=== PATIENT | female | born 1960 | race Caucasian/White ===

== ENCOUNTER 2017-01-04 15:59 | Observation (INO) ==
--- NOTE | 2017-01-04 16:30 | Emergency Department Note ---
START Narrative - START START: I examined this patient and my medical decision-making was reviewed with the Resident Physician. I agree with the documented findings, disposition and treatment plan as described except to the extent set forth below. Patient to ED with a chief complaint of difficulty speaking and right-sided weakness. Onset was over 24 hours ago. Patient states she stuttering and can get her words out. Also complains of weakness it is right-sided. Exam shows a diffuse weakness though we do not localize. She is having some aphasia. Plan. CT had cardiac workup. Likely admission for stroke workup. Patient would not be a TPA candidate secondary to her symptoms were present for over 24 hours.
[2017-01-04] MEDS ORDERED: Acetaminophen 325 MG TABLET PO ONE (16:49)
[2017-01-04 16:57] LABS: Basophils # 0.1 K/mcL (0.0-0.2); Basophils % 0.4 %; Eosinophils # 0.4 K/mcL (0.0-0.6); Eosinophils % 2.9 %; Hematocrit 38.2 % (35.3-44.9); Immature Granulocytes % 0.8 % (0-4); Lymphocytes # 2.6 K/mcL (0.6-4.6); Lymphocytes % 20.8 %; Mean Corpuscular HGB Conc 31.4 g/dL (31.6-35.5); Mean Corpuscular Hemoglobin 29.3 pg (28.0-33.3); Mean Corpuscular Volume 93.2 fL (83.0-100.0); Mean Platelet Volume 9.9 fL (9.4-12.4); Monocytes % 7.8 %; Neutrophils # 8.3 K/mcL (1.6-8.9); Platelet Count 216 K/mcL (140-400); Red Cell Distribution Width 13.8 % (11.5-14.5); Segmented Neutrophils % 67.3 %
[2017-01-04 17:06] LABS: Activated Partial Thrombo Time 27.8 Seconds (26.0-36.0)
[2017-01-04 17:10] LABS: Calcium 9.4 mg/dL (8.6-10.8)
--- NOTE | 2017-01-04 17:45 | Emergency Department Note ---
Disposition Clinical Impression: [place] (acute kidney injury) TIA (transient ischemic attack) Qualifiers: Transient cerebral ischemia type: unspecified Qualified Code(s): G45.9 - Transient cerebral ischemic attack, unspecified Disposition: Admitted As Inpatient Condition: Fair Referrals: NONE,PCP [Primary Care Provider] - Forms: ED Satisfaction Letter Time of Disposition: 18:33 Neuro HPI - General Chief Complaint: ED Neuro Symptoms/Deficit Stated Complaint: possible TIA Time Seen by Provider: 01/04/17 16:05 Source: patient, EMS Limitations: no limitations Nursing Notes Reviewed: Yes Vital Signs Reviewed: Yes - History of Present Illness HPI Narrative: Patient is a 52-year-old female who presents to [facility] ED with a chief complaint of neurologic complaints of right-sided weakness as well as worsening stuttering speech and generalized weakness. Patient was transferred over from [facility] urgent care with concern for possible TIA. Patient states she has felt recently not well over the last few days. She is about to fall the time. This morning woke up and the worsening right-sided weakness. Patient was recently admitted last week for urinary tract infection. She was given Levaquin for home. States she has not wanted much fluids at home. Denies any prior history of kidney problems. She does have a history of headaches from pseudotumor cerebri and back problems with a yumiko in her back. Onset of Symptoms Date: 01/03/17 Symptom Onset Unknown: Yes Location: speech, right arm, right leg History of same: No Severity: mild Quality: weakness Symptoms Improving: Yes Improves with: none Worsens with: none On Anticoagulants: No Associated symptoms: Reports: weakness. Denies: chest pain, cough, fever/chills , headaches, nausea/vomiting, shortness of breath Treatments Prior to Arrival: none - Related Data Home Medications: Home Medications Medication Instructions Recorded Confirmed Cyclobenzaprine [Flexeril] 10 mg PO TID PRN 12/26/16 01/02/17 Gabapentin [Neurontin] 800 mg PO TID 12/26/16 01/02/17 Lisinopril [Zestril] 40 mg PO DAILY 12/26/16 01/02/17 Metoprolol Succinate 200 mg PO DAILY 12/26/16 01/02/17 Omeprazole [PriLOSEC] 40 mg PO DAILY 12/26/16 01/02/17 Simvastatin [Zocor] 40 mg PO HS 12/26/16 01/02/17 hydroCHLOROthiazide 12.5 mg PO DAILY 12/26/16 01/02/17 [Hydrochlorothiazide] metFORMIN [Glucophage] 500 mg PO BIDWM 12/26/16 01/02/17 Previous Rx's Medication Instructions Recorded levoFLOXacin [Levaquin] 750 mg PO DAILY #6 tab 12/30/16 Óscar/Poly/HC *EAR* SUSP 4 drop RIGHT EAR QID #15 drops.susp 01/02/17 [Cortisporin *EAR* SUSP] Allergies/Adverse Reactions: Allergies Allergy/AdvReac Type Severity Reaction Status Date / Time No Known Allergies Allergy Verified 10/23/16 13:45 All systems ED: reviewed and negative except as stated. Past Medical History - Past Medical History Attestation: Yes The following information was validated with the patient. Source: patient Medical history: Reports: diabetes, fibromyalgia, GERD, hyperlipidemia, hypertension, RA, other Surgical history: Reports: appendectomy, , cholecystectomy, orthopedic , other, other Psychiatric history: Reports: anxiety, depression CROSS CUT SAWYER history: Reports: no CROSS CUT SAWYER history - Social History Smoking Status: Never smoker Smokeless Tobacco Status: No Alcohol use: Reports: occasionally Drug use: Reports: none Physical Exam - General Limitations: no limitations General appearance: alert - Head Head exam: atraumatic, normocephalic, normal inspection - Eye Eye exam: Present: normal appearance, PERRL, EOMI - ENT ENT exam: normal exam, normal oropharynx, mucous membranes moist - Neck Neck exam: Present: normal inspection, full ROM, trachea midline - Chest Chest inspection: Present: normal inspection, symmetric chest wall rise - Respiratory Respiratory exam: Present: normal lung sounds bilaterally - Cardiovascular Cardiovascular exam: Present: regular rate, normal rhythm, normal heart sounds - Abdominal Exam Abdominal exam: Present: soft, Non-Tender. Absent: tenderness, distention, guarding, rebound, rigidity - Extremities Exam Extremities exam: Present: normal inspection, full ROM. Absent: tenderness, pedal edema - Back Exam Back exam: Present: normal inspection - Neurological Exam Neurological exam: Present: alert, CN II-XII intact. Absent: motor sensory deficit - Expanded Neurological Exam Speech: Present: expressive aphasia Cranial nerves: EOM function (II, III, IV, ): Normal, facial sensation (V): Normal, facial palsy (VII): Normal, spinal accessory function (XI): Normal, tongue deviation (XII): Normal Motor strength - LUE: 4/5 Motor strength - RUE: 4/5 Motor strength - LLE: 2/5 Motor strength - RLE: 2/5 Sensory exam upper extremity: light touch: Normal Sensory exam lower extremity: light touch: Normal Coma Scale Eye Opening: Spontaneous Coma Scale Motor Response: Obeys Commands Coma Scale Verbal Response: Oriented Coma Scale Total: 15 - Psychiatric Psychiatric exam: Present: normal affect, normal mood - Skin Skin exam: Present: warm, dry, intact, normal color Course Course Narrative: Patient seen and examined. Neuro symptoms. NIH score of 2 for a little bit of expressive aphasia and subjective right-sided weakness. Stroke workup initiated. Patient recently admitted for UTI. We will also repeat a urinalysis. - Reevaluation(s) Reevaluation #1: Urinalysis shows a lot of white blood cells. Her creatinine shows worsened at 2.2 from previously normal levels. Will admit for acute kidney injury as well as possible TIA. Time: 18:26 Reevaluation #2: I spoke with hospitalist Jaleesa Sanchez who has accepted patient for admission. Time: 18:32 Vital Signs Temperature 99.3 F 01/04/17 16:00 Pulse Rate 90 01/04/17 16:00 Respiratory Rate 15 01/04/17 16:00 Blood Pressure 133/70 01/04/17 16:00 O2 Sat by Pulse Oximetry 92 01/04/17 16:00 Temperature 99.3 F 01/04/17 16:00 Pulse Rate 89 01/04/17 17:19 Respiratory Rate 18 01/04/17 17:19 Blood Pressure 136/84 01/04/17 17:19 O2 Sat by Pulse Oximetry 95 01/04/17 17:19 Oxygen Delivery Oxygen Delivery Room Air Neuro Symptoms/Deficit - Medical Records Medical records reviewed: Yes I reviewed the patient's medical records. - Lab Data Lab results reviewed: Yes I reviewed the patient's lab results. Result diagrams: 01/04/17 16:45 01/04/17 16:45 Lab Results 01/04/17 01/04/17 01/04/17 Range/Units 16:45 16:45 16:45 WBC 12.4 H (4.3-11.1) K/mcL RBC 4.10 (3.82-4.97) M/mcL Hgb 12.0 (11.5-15.4) g/dL Hct 38.2 (35.3-44.9) % MCV 93.2 (83.0-100.0) fL MCH 29.3 (28.0-33.3) pg MCHC 31.4 L (31.6-35.5) g/dL RDW 13.8 (11.5-14.5) % Plt Count 216 (140-400) K/mcL MPV 9.9 (9.4-12.4) fL Immature Gran % 0.8 (0-4) % Seg Neutrophils % 67.3 % Lymphocytes % 20.8 % Monocytes % 7.8 % Eosinophils % 2.9 % Basophils % 0.4 % Neutrophils # 8.3 (1.6-8.9) K/mcL Lymphocytes # 2.6 (0.6-4.6) K/mcL Monocytes # 1.0 (0.0-1.3) K/mcL Eosinophils # 0.4 (0.0-0.6) K/mcL Basophils # 0.1 (0.0-0.2) K/mcL PT 11.0 (9.4-12.1) Seconds INR 1.0 APTT 27.8 (26.0-36.0) Seconds Sodium 138 (136-145) mEq/L Potassium 4.0 (3.5-4.5) mEq/L Chloride 100 (98-109) mEq/L Carbon Dioxide 28 (19-29) mEq/L BUN 16 (7-20) mg/dL Creatinine 2.22 H (0.57-1.11) mg/dL Est GFR ( Amer) 27 L (> 60) Est GFR (Non-Af Amer) 23 L (> 60) BUN/Creatinine Ratio 7 (6-26) Glucose 94 (70-99) mg/dL Calculated Osmolality 287 (280-300) Calcium 9.4 (8.6-10.8) mg/dL Troponin I (0-0.03) ng/mL Urine Color (Yellow) Urine Clarity (Clear) Urine pH (5.0-8.0) pH Units Ur Specific [place] (1.010-1.025) Urine Protein (Neg-Trace) mg/dL Urine Glucose (UA) (Normal) mg/dL Urine Ketones (Negative) mg/dL Urine Blood (Negative) Urine Nitrite (Negative) Urine Bilirubin (Negative) Urine Urobilinogen (Normal) mg/dL Ur Leukocyte Esterase (Negative) Urine Microscopic RBC (0-3) per hpf Urine Microscopic WBC (0-3) per hpf Ur Squamous Epith Cells (None-Few) per lpf Urine Bacteria (None-Few) per hpf Hyaline Casts (None-Few) per lpf Ur Culture Indicated? (NO) 01/04/17 01/04/17 Range/Units 16:45 17:48 WBC (4.3-11.1) K/mcL RBC (3.82-4.97) M/mcL Hgb (11.5-15.4) g/dL Hct (35.3-44.9) % MCV (83.0-100.0) fL MCH (28.0-33.3) pg MCHC (31.6-35.5) g/dL RDW (11.5-14.5) % Plt Count (140-400) K/mcL MPV (9.4-12.4) fL Immature Gran % (0-4) % Seg Neutrophils % % Lymphocytes % % Monocytes % % Eosinophils % % Basophils % % Neutrophils # (1.6-8.9) K/mcL Lymphocytes # (0.6-4.6) K/mcL Monocytes # (0.0-1.3) K/mcL Eosinophils # (0.0-0.6) K/mcL Basophils # (0.0-0.2) K/mcL PT (9.4-12.1) Seconds INR APTT (26.0-36.0) Seconds Sodium (136-145) mEq/L Potassium (3.5-4.5) mEq/L Chloride (98-109) mEq/L Carbon Dioxide (19-29) mEq/L BUN (7-20) mg/dL Creatinine (0.57-1.11) mg/dL Est GFR ( Amer) (> 60) Est GFR (Non-Af Amer) (> 60) BUN/Creatinine Ratio (6-26) Glucose (70-99) mg/dL Calculated Osmolality (280-300) Calcium (8.6-10.8) mg/dL Troponin I 0.00 (0-0.03) ng/mL Urine Color Yellow (Yellow) Urine Clarity Cloudy A (Clear) Urine pH 6.0 (5.0-8.0) pH Units Ur Specific [place] 1.014 (1.010-1.025) Urine Protein 100 H (Neg-Trace) mg/dL Urine Glucose (UA) Normal (Normal) mg/dL Urine Ketones Negative (Negative) mg/dL Urine Blood Trace H (Negative) Urine Nitrite Negative (Negative) Urine Bilirubin Negative (Negative) Urine Urobilinogen Normal (Normal) mg/dL Ur Leukocyte Esterase Moderate H (Negative) Urine Microscopic RBC 5-15 H (0-3) per hpf Urine Microscopic WBC 50-100 H (0-3) per hpf Ur Squamous Epith Cells Many H (None-Few) per lpf Urine Bacteria None Seen (None-Few) per hpf Hyaline Casts None Seen (None-Few) per lpf Ur Culture Indicated? YES A (NO) - Radiology Data Radiology results reviewed: Yes I reviewed the patient's radiology results. Head CT 01/04/17 16:06 IMPRESSION: No acute intracranial abnormality. D/ / Javon Nunez MD / Javon Nunez MD Interpreting Provider: Javon Nunez MD - EKG Data EKG attestation: Yes I reviewed and interpreted this EKG. EKG results narrative: EKG done at 1637 shows normal sinus rhythm with a rate of [address] elevation or depression noted. Poor wandering baseline due to artifact. Normal axis. NIH Stroke Scale - Level of Consciousness LOC: Alert - LOC Questions LOC Questions: Answers both correctly - LOC Commands LOC Commands: Performs both correctly - Best Gaze Best Gaze: Normal - Visual Visual: No visual loss - Facial Palsy Facial Palsy: Normal - Motor Arms Motor Arm-Left: No drift for 10 seconds Motor Arm-Right: No drift for 10 seconds - Motor Legs Motor Leg-Left: No drift for 5 seconds Motor Leg-Right: Some effort against gravity, limb drifts to bed TPA Checklist - LKW: 3-4.5 hrs Add. Warnings/Precautions Patient/family understanding: The patient/family members have been counseled and understood the risk, benefit , and alternatives of treatment.
[2017-01-04 17:57] LABS: Bilirubin,Urine Negative (Negative); Blood,Urine Trace (Negative); Clarity,Urine Cloudy (Clear); Color,Urine Yellow (Yellow); Glucose,Urine (UA) Normal (Normal); Ketones,Urine Negative (Negative); Leukocyte Esterase,Urine Moderate (Negative); Nitrite,Urine Negative (Negative); Protein,Urine 100 mg/dL (Neg-Trace); Specific Gravity,Urine 1.014 (1.010-1.025); Urobilinogen,Urine Normal (Normal)
[2017-01-04 17:59] LABS: Bacteria,Urine None Seen per hpf (None-Few); Hyaline Casts,Urine None Seen per lpf (None-Few); Squamous Epithelial Cell,Urine Many per lpf (None-Few); WBC,Urine 50-100 per hpf (0-3)
[2017-01-04] MEDS ORDERED: 0.9 % Sodium Chloride 1,000 ML IVC ONE (18:12)
[2017-01-04] MEDS ORDERED: *HR* OxyCODONE/APAP 5/325 TABLET PO ONE (18:25)
[2017-01-04] MEDS: *HR* OxyCODONE/APAP 5/325 TABLET PO PRN (21:12)
[2017-01-04] MEDS ORDERED: Acetaminophen 325 MG TABLET PO PRN (21:24)
[2017-01-04] MEDS ORDERED: Naloxone 0.4 MG/ML INJ IVP PRN (21:24)
[2017-01-04] MEDS ORDERED: Dextrose Gel 15 GM PO PRN ×2 (21:31)
[2017-01-04] MEDS ORDERED: D5% in Water 1,000 ML IVC PRN (21:31)
[2017-01-04] MEDS ORDERED: *HR* Dextrose 50 % in Water (Syg) 50 ML SYRINGE IVP PRN (21:31)
[2017-01-04] MEDS ORDERED: *HR* LORazepam 2 MG/ML VIAL IVP PRN (21:51)
--- NOTE | 2017-01-04 21:58 | Internal Med History&Physical ---
<Jaleesa Sanchez M - Last Filed: 01/04/17 22:17> Date of Encounter: 01/04/17 Time of Encounter: 21:54 Assessment and Plan (1) LINCOLN (acute kidney injury) Current visit: Yes Status: Acute Patient with LINCOLN, creatinine of 2.22, up from previous of 0.75 last week. She also has UTI. Will hold HCTZ, lisinopril. Treat UTI with IV Rocephin. Hydrate with 0.9NS at 125mL/hr. Avoid NSAIDS and nephrotoxins. Retroperitoneal ultrasound. Check chemistry daily. (2) TIA (transient ischemic attack) Current visit: Yes Status: Suspected Patient presented with worsening stutter and right leg weakness with frequent falls. Patient complaining of right knee and leg pain. Denies numbness and tingling. On exam, patient with equal strength bilaterally. CT of Head showed no acute intracranial abnormality. RLE weakness and falls likely related to pain rather than TIA, and low suspicion for TIA/CVA, but will rule out. continuous equipment monitor phototypesetting MRI head/brain PT/OT consults Qualifiers: Transient cerebral ischemia type: unspecified Qualified Code(s): G45.9 - Transient cerebral ischemic attack, unspecified (3) Stutter Current visit: Yes Status: Acute Patient and family report she has increased frequency of stuttering, and are concerned with right leg weakness and falls about neurological cause. Patient does have significant stutter intermittent with fluid speech. She reports she has occasional stutter at baseline. CT head showed no acute intracranial abnormalities. Will get MRI of head and brain. (4) UTI (urinary tract infection) Current visit: Yes Status: Acute UA consistent with UTI. Patient was recently admitted with UTI and discharged on Levaquin. Culture shows sensitivity to Levaquin. However, patient has elevated WBC, LINCOLN and UA still looks infected. Will treat with Rocephin IVPB daily and await culture results. Qualifiers: Urinary tract infection type: site unspecified Hematuria presence: without hematuria Qualified Code(s): N39.0 - Urinary tract infection, site not specified (5) DVT prophylaxis Current visit: Yes Status: Acute anti-embolic stockings heparin TID Internal Medicine - H&P: HPI Chief complaint: fall, stutter, weakness Admitted From: Emergency Dept Plans for Post Hospital Care: Home History of present illness: Ms. Mendoza is a 56 year old female with hypertension, hyperlipidemia, type 2 diabetes, fibromyalgia, rheumatoid arthritis, pseudotumor cerebri presented to the emergency department today with complaints of increased stuttering, and weakness and falls. Patient reports that she stutters from time to time but her stuttering has been much worse in the last couple of days. She also reports falling 3 times today hitting herself on furniture, and she thinks is because her right leg is weak. She is complaining of pain in her right knee shooting up her leg to her back. She denies any numbness or tingling in the right leg. She reports occasional dizziness. She denies any chest pain, palpitations, shortness of breath, nausea, vomiting, abdominal pain. She reports a good appetite. She has reported fever couple of days ago, but no fever, chills or sweats today. Evaluation in the emergency department included a head CT which showed no acute intracranial abnormality. EKG showed normal sinus rhythm with heart rate of 86. Troponin was negative at 0.00. White blood cell count was mildly elevated at 12.4. She had AK I with creatinine of 2.2 to, up from previous of 0.75 last week. Patient was recently admitted and treated for UTI and kidney stones. UA today also shows concern for UTI. Patient reports she has been taking her Levaquin as prescribed. On exam, patient is alert and oriented, in no acute distress. Heart is regular rate and rhythm, lungs are clear bilaterally to auscultation. Patient has equal strength bilaterally, cranial nerves are intact, no pronator drift. She does have a significant stutter that comes and goes with her speech. Past Med Surg Social Fam HX - Past Medical History Medical history: diabetes, fibromyalgia, GERD, hyperlipidemia, hypertension, RA , other Psychiatric history: anxiety, depression - Past Surgical History Surgical History: appendectomy, , cholecystectomy, orthopedic, other, other - Social History Smoking Status: Never smoker Smokeless Tobacco Status: No Alcohol use: occasionally Drug use: none - Family History Mother History Unknown: Yes Internal Medicine - H&P: Meds Cyclobenzaprine [Flexeril] 10 mg PO TID PRN 12/26/16 [History] Gabapentin [Neurontin] 800 mg PO TID 12/26/16 [History] Lisinopril [Zestril] 40 mg PO DAILY 12/26/16 [History] Metoprolol Succinate 200 mg PO DAILY 12/26/16 [History] Omeprazole [PriLOSEC] 40 mg PO DAILY 12/26/16 [History] Simvastatin [Zocor] 40 mg PO HS 12/26/16 [History] hydroCHLOROthiazide [Hydrochlorothiazide] 12.5 mg PO DAILY 12/26/16 [History] metFORMIN [Glucophage] 500 mg PO BIDWM 12/26/16 [History] levoFLOXacin [Levaquin] 750 mg PO DAILY #6 tab 12/30/16 [Rx] Óscar/Poly/HC *EAR* SUSP [Cortisporin *EAR* SUSP] 4 drop RIGHT EAR QID #15 drops.susp 01/02/17 [Rx] 3 Allergy/AdvReac Type Severity Reaction Status Date / Time No Known Allergies Allergy Verified 10/23/16 13:45 All Systems PM: A 10-system review of systems was performed and is negative for pertinent findings except as documented above in the HPI. - Constitutional Constitutional: no chills, no fever(s), no night sweats - EENT Eyes: no change in vision, no discharge, no pain, no photophobia Ears: no ear discharge, no ear pain, no tinnitus Nose, mouth and throat: no dysphagia, no nasal discharge, no neck pain, no sore throat - Cardiovascular Cardiovascular ROS IM: no chest pain, no diaphoresis, no dyspnea, no lightheadedness, no palpitations, no syncope - Respiratory Respiratory: no cough, no dyspnea, no wheezing, no excessive phlegm production - Gastrointestinal Gastrointestinal: no abdominal pain, no diarrhea, no hematemesis, no hematochezia, no melena, no nausea, no vomiting - Genitourinary Genitourinary: no change in urinary stream, no dysuria, no flank pain, no hematuria - Musculoskeletal Musculoskeletal ROS IM: no numbness, no tingling - Integumentary Integumentary IM: no rash, no unusual bruising - Neurological Neurological ROS: abnormal speech (stutter), dizziness, focal weakness (right leg), frequent falls, no confusion, no convulsions, no numbness, no tingling, no tremor(s) - Hematologic/Lymphatic Hematologic/Lymphatic: no easy bruising - Constitutional Vitals: Temp Pulse Resp BP Pulse Ox 98.1 F 81 12 105/68 90 08/25/17 19:58 01/04/17 19:58 01/04/17 19:58 01/04/17 19:58 01/04/17 19:58 General appearance: Present: A&O X 3, morbidly obese, pleasant, no acute distress - Head Head exam: Present: atraumatic, normocephalic - Eye Eye exam: Present: PERRL, conjuntiva pink, sclera anicteric Pupils: Present: PERRL - Neck Neck exam general surgery: Present: supple, trachea midline. Absent: lymphadenopathy - Respiratory Respiratory exam: Present: CTAB. Absent: accessory muscle use, rales, rhonchi, wheezes - Cardiovascular Cardiovascular exam: Present: RRR, +S1, +S2. Absent: diastolic murmur, gallop, rubs, systolic murmur - GI/Abdominal GI/Abdominal exam: Present: normal bowel sounds, soft, no peritoneal signs. Absent: distended, tenderness - Extremities Exam Extremities exam: Present: warm, radial pulses palpable and symmetrical. Absent : calf tenderness, cyanotic, pedal edema - Neurological Exam Neurological exam: Present: CN II-XII intact, oriented X3, no focal deficits, strengths equal and symetr throughout. Absent: pronater drift, facial droop - Expanded Neurological Exam Speech: Present: stutter Cranial Nerves: EOM's intact PM: Normal, gag reflex PM: Normal, nystagmus PM: Normal, tongue deviation PM: Normal Neuro motor strength exam: LUE: 5, RUE: 5, LLE: 5, RLE: 5 - Skin Skin exam: Present: dry, intact Internal Med - H&P Results - Labs CBC & Chem 7: 01/04/17 16:45 01/04/17 16:45 Labs: All Lab Results (24 Hours) 01/04/17 01/04/17 01/04/17 Range/Units 16:45 16:45 16:45 WBC 12.4 H (4.3-11.1) K/mcL RBC 4.10 (3.82-4.97) M/mcL Hgb 12.0 (11.5-15.4) g/dL Hct 38.2 (35.3-44.9) % MCV 93.2 (83.0-100.0) fL MCH 29.3 (28.0-33.3) pg MCHC 31.4 L (31.6-35.5) g/dL RDW 13.8 (11.5-14.5) % Plt Count 216 (140-400) K/mcL MPV 9.9 (9.4-12.4) fL Immature Gran % 0.8 (0-4) % Seg Neutrophils % 67.3 % Lymphocytes % 20.8 % Monocytes % 7.8 % Eosinophils % 2.9 % Basophils % 0.4 % Neutrophils # 8.3 (1.6-8.9) K/mcL Lymphocytes # 2.6 (0.6-4.6) K/mcL Monocytes # 1.0 (0.0-1.3) K/mcL Eosinophils # 0.4 (0.0-0.6) K/mcL Basophils # 0.1 (0.0-0.2) K/mcL PT 11.0 (9.4-12.1) Seconds INR 1.0 APTT 27.8 (26.0-36.0) Seconds Sodium 138 (136-145) mEq/L Potassium 4.0 (3.5-4.5) mEq/L Chloride 100 (98-109) mEq/L Carbon Dioxide 28 (19-29) mEq/L BUN 16 (7-20) mg/dL Creatinine 2.22 H (0.57-1.11) mg/dL Est GFR ( Amer) 27 L (> 60) Est GFR (Non-Af Amer) 23 L (> 60) BUN/Creatinine Ratio 7 (6-26) Glucose 94 (70-99) mg/dL Calculated Osmolality 287 (280-300) Calcium 9.4 (8.6-10.8) mg/dL Troponin I (0-0.03) ng/mL Urine Color (Yellow) Urine Clarity (Clear) Urine pH (5.0-8.0) pH Units Ur Specific [place] (1.010-1.025) Urine Protein (Neg-Trace) mg/dL Urine Glucose (UA) (Normal) mg/dL Urine Ketones (Negative) mg/dL Urine Blood (Negative) Urine Nitrite (Negative) Urine Bilirubin (Negative) Urine Urobilinogen (Normal) mg/dL Ur Leukocyte Esterase (Negative) Urine Microscopic RBC (0-3) per hpf Urine Microscopic WBC (0-3) per hpf Ur Squamous Epith Cells (None-Few) per lpf Urine Bacteria (None-Few) per hpf Hyaline Casts (None-Few) per lpf Ur Culture Indicated? (NO) 01/04/17 01/04/17 Range/Units 16:45 17:48 WBC (4.3-11.1) K/mcL RBC (3.82-4.97) M/mcL Hgb (11.5-15.4) g/dL Hct (35.3-44.9) % MCV (83.0-100.0) fL MCH (28.0-33.3) pg MCHC (31.6-35.5) g/dL RDW (11.5-14.5) % Plt Count (140-400) K/mcL MPV (9.4-12.4) fL Immature Gran % (0-4) % Seg Neutrophils % % Lymphocytes % % Monocytes % % Eosinophils % % Basophils % % Neutrophils # (1.6-8.9) K/mcL Lymphocytes # (0.6-4.6) K/mcL Monocytes # (0.0-1.3) K/mcL Eosinophils # (0.0-0.6) K/mcL Basophils # (0.0-0.2) K/mcL PT (9.4-12.1) Seconds INR APTT (26.0-36.0) Seconds Sodium (136-145) mEq/L Potassium (3.5-4.5) mEq/L Chloride (98-109) mEq/L Carbon Dioxide (19-29) mEq/L BUN (7-20) mg/dL Creatinine (0.57-1.11) mg/dL Est GFR ( Amer) (> 60) Est GFR (Non-Af Amer) (> 60) BUN/Creatinine Ratio (6-26) Glucose (70-99) mg/dL Calculated Osmolality (280-300) Calcium (8.6-10.8) mg/dL Troponin I 0.00 (0-0.03) ng/mL Urine Color Yellow (Yellow) Urine Clarity Cloudy A (Clear) Urine pH 6.0 (5.0-8.0) pH Units Ur Specific [place] 1.014 (1.010-1.025) Urine Protein 100 H (Neg-Trace) mg/dL Urine Glucose (UA) Normal (Normal) mg/dL Urine Ketones Negative (Negative) mg/dL Urine Blood Trace H (Negative) Urine Nitrite Negative (Negative) Urine Bilirubin Negative (Negative) Urine Urobilinogen Normal (Normal) mg/dL Ur Leukocyte Esterase Moderate H (Negative) Urine Microscopic RBC 5-15 H (0-3) per hpf Urine Microscopic WBC 50-100 H (0-3) per hpf Ur Squamous Epith Cells Many H (None-Few) per lpf Urine Bacteria None Seen (None-Few) per hpf Hyaline Casts None Seen (None-Few) per lpf Ur Culture Indicated? YES A (NO) - Diagnostic Studies CT scan - head Additional comments: Head CT 01/04/17 16:06 IMPRESSION: No acute intracranial abnormality. D/ / Javon Nunez MD / Javon Nunez MD Interpreting Provider: Javon Nunez MD <Riaz Hampton - Last Filed: 01/04/17 22:58> Date of Encounter: 01/04/17 Internal Medicine - H&P: HPI History of present illness: Ms. Mendoza is a 56 year old female All Systems PM: A 10-system review of systems was performed and is negative for pertinent findings except as documented above in the HPI. - Constitutional Vitals: Temp Pulse Resp BP Pulse Ox 98.1 F 81 12 105/68 90 01/04/17 19:58 01/04/17 19:58 01/04/17 19:58 01/04/17 19:58 01/04/17 19:58 Internal Med - H&P Results - Labs CBC & Chem 7: 01/04/17 16:45 01/04/17 16:45 - Attending Attestation I have personally performed a face to face evaluation on this patient. I have reviewed and agree with the care plan. History and Exam by me shows: History 78-year-old female who was recently admitted and treated for strep agalactiae pansensitive UTI who presents with one-day history of right lower extremity weakness. Found to have a acute kidney injury creatinine 2.2, significant pyuria. She mentions of right lower extremity weakness gives a vague history of possible pain but denies it at other times which led to the fall. Denies any sensory paresthesia ROS 14 point review of systems reviewed as best as possible given presentation. Pertinent positive or negative as per HPI or otherwise reviewed as negative General - AAO x 3 Psych - Appropriate affect/speech. No agitation Eyes - ANTWAN. Eye lids intact. No scleral icterus ENT - Oral mucosa pink, dentition intact. External ear clear/dry/intact. No thyromegaly Neuro - speech reports minimal slurred, right lower extremity 4+ out of 5, Otherwise, no gross peripheral or central neuro deficits with intact CN 2-12 exam Heart - Sinus. RRR. S1 and S2 present. No added HS/murmurs appreciated. No elevated JVD appreciated. No calf swellings/erythema Lung - Adequate air entry b/l, No crackes/wheezes appreciated GI - Soft, non-tender. No hepatosplenomegaly/ascites. BS+ - No CVA/suprapubic tenderness or palpable bladder distension Skin - Intact. No rash/petechiae/ecchymosis. Warm extremities Assessment and plan TIA/CVA rule out - check MRI Acute kidney injury - IV fluids Pyuria - IV antibiotics
[2017-01-04] MEDS: Insulin LISPRO 300 UNITS/3 ML VIAL SQ SCH (22:30)
[2017-01-04] MEDS: 0.9 % Sodium Chloride 1,000 ML IVC SCH (22:41)
[2017-01-04] MEDS: Gabapentin 400 MG CAPSULE PO SCH (22:41)
[2017-01-04] MEDS: Cortisporin *EAR*Susp 10 ML BOTTLE RIGHT EAR SCH (23:26)
[2017-01-05 00:51] LABS: Hemoglobin A1C 5.6 %
[2017-01-05] MEDS ORDERED: *HR* OxyCODONE Immed Rel 5 MG TABLET PO ONE (01:59)
[2017-01-05] MEDS: *HR* OxyCODONE/APAP 5/325 TABLET PO PRN ×2 (04:08→10:01)
[2017-01-05] MEDS: *HR* Heparin 5,000 UNIT/ML VIAL SQ SCH ×3 (06:05→21:25)
[2017-01-05 07:11] LABS: Basophils % 0.4 %; Eosinophils # 0.4 K/mcL (0.0-0.6); Eosinophils % 3.7 %; Hematocrit 35.6 % (35.3-44.9); Hemoglobin 11.3 g/dL (11.5-15.4); Immature Granulocytes % 0.8 % (0-4); Lymphocytes # 2.7 K/mcL (0.6-4.6); Lymphocytes % 27.4 %; Mean Corpuscular HGB Conc 31.7 g/dL (31.6-35.5); Mean Corpuscular Hemoglobin 29.5 pg (28.0-33.3); Mean Platelet Volume 10.2 fL (9.4-12.4); Monocytes # 0.7 K/mcL (0.0-1.3); Monocytes % 7.6 %; Neutrophils # 5.9 K/mcL (1.6-8.9); Platelet Count 211 K/mcL (140-400); Red Blood Count 3.83 M/mcL (3.82-4.97); Red Cell Distribution Width 13.7 % (11.5-14.5); Segmented Neutrophils % 60.1 %
[2017-01-05 07:12] LABS: Calcium 9.1 mg/dL (8.6-10.8)
[2017-01-05 07:15] LABS: Potassium 4.1 mEq/L (3.5-4.5)
[2017-01-05] MEDS: Insulin LISPRO 300 UNITS/3 ML VIAL SQ SCH ×4 (07:58→21:31)
[2017-01-05] MEDS: Metoprolol XL (24 HR) Succ 50 MG TAB.ER.24H PO SCH (08:10)
[2017-01-05] MEDS: Gabapentin 400 MG CAPSULE PO SCH ×3 (08:14→21:25)
[2017-01-05] MEDS: Cortisporin *EAR*Susp 10 ML BOTTLE RIGHT EAR SCH ×4 (08:15→21:30)
[2017-01-05] MEDS: 0.9 % Sodium Chloride 1,000 ML IVC SCH ×3 (08:15→21:31)
[2017-01-05] MEDS ORDERED: *HR* OxyCODONE Immed Rel 5 MG TABLET PO PRN (11:13)
[2017-01-05] MEDS: *HR* HYDROcodone/Acet 5/325 mg TABLET PO PRN ×2 (13:17→21:25)
--- NOTE | 2017-01-05 13:21 | Internal Med Progress Note ---
Date of Encounter: 01/05/17 Time of Encounter: 12:15 - Assessment and plan (1) TIA (transient ischemic attack) Current Visit: Yes Status: Suspected Assessment and plan: Patient's stuttering has resolved. Awaiting OT and PT consultations for her weakness. Leukocytosis resolved. Head CT negative. Acute kidney injury improving. Treating for urinary tract infection. MRI negative for acute processes. Retroperitoneal ultrasound also unremarkable. During my examination of her, she was asleep and when I woke her up, she will immediately requested more pain medication and stated pain to her legs, arm, head. No focal neurological weakness is present on examination. Awaiting OT and PT recommendations for disposition. ITS Impressions Head CT 01/04/17 16:06 IMPRESSION: No acute intracranial abnormality. D/ / Javon Nunez MD / Javon Nunez MD Interpreting Provider: Javon Nunez MD Brain MRI 01/05/17 08:08 IMPRESSION: No acute intracranial abnormality. Minimal chronic microvascular disease. D/ / Armando Orlando MD / Armando Orlando MD Interpreting Provider: Armando Orlando MD Retroperitoneum Ultrasound 01/05/17 11:00 IMPRESSION: Unremarkable ultrasound of the kidneys and urinary bladder. D/ / Sebas José MD / Sebas José MD Interpreting Provider: Sebas José MD Qualifiers: Transient cerebral ischemia type: unspecified Qualified Code(s): G45.9 - Transient cerebral ischemic attack, unspecified (2) Stutter Current Visit: Yes Status: Resolved Assessment and plan: CVA ruled out. I spoke to the patient at length, speech was clear and intelligible (3) UTI (urinary tract infection) Current Visit: Yes Status: Acute Assessment and plan: Urinalysis abnormal. Urine culture grossly mixed. She had a UTI on 12/26/16 of group beta strep and she was appropriately treated with levofloxacin. Currently on ceftriaxone. We will continue at this time. (4) Acute kidney injury (nontraumatic) Current Visit: No Status: Acute Assessment and plan: Improving, will continue gentle IV fluids and trend. (5) Chronic pain Current Visit: Yes Status: Chronic Assessment and plan: Patient stating she has issues with chronic pain and is set to see a pain management provider in [place] in approximately one month. After speaking with the patient, she states that she regularly has prescriptions for Percocet 7.5 for Percocet tens. In review of her orders report however, patient has multiple prescribers and has not had regular, long-term prescribing of any controlled substances other than gabapentin. Patient recently received a 2 day supply of hydrocodone-acetaminophen 5-325 5 days ago. Strong suspicion for drug seeking behavior. Also on examination, patient lists multiple areas of pain and those areas change depending upon whom she is talking to. (6) Drug-seeking behavior Current Visit: Yes Status: Suspected Assessment and plan: Abnormal or his report and patient does not have the prescriptions that she indicated. She has not been prescribed Percocet 7.5 since March 2016. She has not been prescribed Percocet 10 mg for at least one calendar year. Tylenol for mild pain, Echo 5 mg from moderate pain, IV Toradol for severe pain. (7) Type 2 diabetes mellitus Current Visit: No Status: Chronic Assessment and plan: Controlled with an A1c of 5.6%. Continue sliding scale while admitted (8) DVT prophylaxis Current Visit: Yes Status: Acute Assessment and plan: Subcutaneous heparin (9) Morbid obesity with BMI of 40.0-44.9, adult Current Visit: No Status: Chronic - Subjective Interval history: Patient seen and examined. On examination, patient asleep supine in bed. Patient awakened to voice and touch. Once awake, patient complained of bilateral leg pain, low back pain, right arm pain, and a headache. She states she is eating well. She is requesting increased pain medication. She denies shortness of breath above her norm. - Constitutional Vitals: Temp Pulse Resp BP Pulse Ox 98.3 F 86 16 128/83 93 01/05/17 11:43 01/05/17 11:43 01/05/17 11:43 01/05/17 11:43 01/05/17 11:43 General appearance: Present: A&O X 3, morbidly obese, pleasant, no acute distress, answers questions appropriately - Head Head exam: Present: atraumatic, normocephalic - Eye Eye exam: Present: PERRL, conjuntiva pink, sclera anicteric Pupils: Present: PERRL - Neck Neck exam general surgery: Present: supple, trachea midline. Absent: lymphadenopathy - Respiratory Respiratory exam: Present: CTAB. Absent: accessory muscle use, rales, respiratory distress, rhonchi, wheezes - Cardiovascular Cardiovascular exam: Present: RRR, +S1, +S2. Absent: diastolic murmur, gallop, rubs, systolic murmur - GI/Abdominal GI/Abdominal exam: Present: normal bowel sounds, soft, no peritoneal signs. Absent: distended, tenderness - Extremities Exam Extremities exam: Present: pedal edema (trace, nonpitting), warm, radial pulses palpable and symmetrical. Absent: calf tenderness, cyanotic - Neurological Exam Neurological exam: Present: alert, CN II-XII intact, oriented X3, no focal deficits, strengths equal and symetr throughout. Absent: pronater drift, facial droop, speech deficit - Skin Skin exam: Present: dry, intact, normal color, warm Internal Medicine: Result - Labs CBC & Chem 7: 01/05/17 06:14 01/05/17 06:14 Labs: Short CBC 01/05/17 Range/Units 06:14 WBC 9.8 (4.3-11.1) K/mcL Hgb 11.3 L (11.5-15.4) g/dL Hct 35.6 (35.3-44.9) % Plt Count 211 (140-400) K/mcL Neutrophils # 5.9 (1.6-8.9) K/mcL BMP 01/05/17 06:14 Sodium 141 Potassium 4.1 Chloride 106 Carbon Dioxide 25 BUN 14 Creatinine 1.60 H Glucose 136 H Calcium 9.1 - ABG Interpretation ABG results: PT/INR, D-dimer PT 11.0 Seconds (9.4-12.1) 01/04/17 16:45 - Impressions Impressions Brain MRI 01/05/17 08:08 IMPRESSION: No acute intracranial abnormality. Minimal chronic microvascular disease. D/ / Armando Orlando MD / Armando Orlando MD Interpreting Provider: Armando Orlando MD Retroperitoneum Ultrasound 01/05/17 11:00 IMPRESSION: Unremarkable ultrasound of the kidneys and urinary bladder. D/ / Sebas José MD / Sebas José MD Interpreting Provider: Sebas José MD Consult Discharge Plan - Plan Referrals: Lorenzo Snell, PARBOILER [Primary Care Provider] -
[2017-01-05] MEDS: Ketorolac 15 MG/ML VIAL IVP PRN (16:35)
[2017-01-06] MEDS: Ketorolac 15 MG/ML VIAL IVP PRN ×2 (00:57→06:45)
[2017-01-06] MEDS: *HR* HYDROcodone/Acet 5/325 mg TABLET PO PRN ×2 (03:51→09:34)
[2017-01-06 05:14] LABS: Calcium 9.7 mg/dL (8.6-10.8); Potassium 3.7 mEq/L (3.5-4.5)
[2017-01-06] MEDS: 0.9 % Sodium Chloride 1,000 ML IVC SCH (06:34)
[2017-01-06] MEDS: *HR* Heparin 5,000 UNIT/ML VIAL SQ SCH (06:34)
[2017-01-06 07:23] VITALS: BP 133/73
[2017-01-06] MEDS: Insulin LISPRO 300 UNITS/3 ML VIAL SQ SCH (07:37)
[2017-01-06] MEDS: Gabapentin 400 MG CAPSULE PO SCH (09:34)
[2017-01-06] MEDS: Metoprolol XL (24 HR) Succ 50 MG TAB.ER.24H PO SCH (09:34)
[2017-01-06] MEDS: Cortisporin *EAR*Susp 10 ML BOTTLE RIGHT EAR SCH (09:35)
--- NOTE | 2017-01-06 10:08 | Discharge Summary ---
Date of Encounter: 01/06/17 Time of Encounter: 08:45 - Discharge Diagnosis (1) TIA (transient ischemic attack) Priority: Primary Status: Suspected Comments: Patient's stuttering has resolved. OT and PT surmised she has no needs. Leukocytosis resolved. Head CT negative. Acute kidney injury essentially resolved. Treating for urinary tract infection-UCx mixed. MRI negative for acute processes. Retroperitoneal ultrasound also unremarkable. No focal neurological weakness is present on examination. Qualifiers: Transient cerebral ischemia type: unspecified Qualified Code(s): G45.9 - Transient cerebral ischemic attack, unspecified (2) Stutter Priority: Primary Status: Resolved (3) UTI (urinary tract infection) Priority: Primary Status: Acute Comments: Urinalysis abnormal. Urine culture grossly mixed. She had a UTI on 12/26/16 of group beta strep and she was appropriately treated with levofloxacin. On ceftriaxone while admitted; will send home on short course of levoflox as the patient is still endorsing dysuria (4) Acute kidney injury (nontraumatic) Priority: Primary Status: Acute Comments: improved daily while admitted. Recommend close outpatient followup (5) Chronic pain Priority: Secondary Status: Chronic Comments: Patient stating she has issues with chronic pain and is set to see a pain management provider in [place] in approximately one month. After speaking with the patient, she states that she regularly has prescriptions for Percocet 7.5 for Percocet tens. In review of her orders report however, patient has multiple prescribers and has not had regular, long-term prescribing of any controlled substances other than gabapentin. Patient recently received a 2 day supply of hydrocodone-acetaminophen 5-325 5 days ago. Strong suspicion for drug seeking behavior. Also on examination, patient lists multiple areas of pain and those areas change depending upon whom she is talking to. She has also been seen by 2 providers at [facility] within the last month or so and neither of them prescribed pain medication. She is being worked up by Dr. Jones for possible nerve stimulator/injections (6) Drug-seeking behavior Priority: Primary Status: Suspected (7) Type 2 diabetes mellitus Priority: Secondary Status: Chronic Comments: Controlled with an A1c of 5.6%. Follow-up outpatient (8) DVT prophylaxis Priority: Primary Status: Acute Comments: Subcutaneous heparin while admitted (9) Morbid obesity with BMI of 40.0-44.9, adult Priority: Secondary Status: Chronic - Discharge Medications Home Medications: Cyclobenzaprine [Flexeril] 10 mg PO TID PRN 12/26/16 [History] Gabapentin [Neurontin] 800 mg PO TID 12/26/16 [History] Metoprolol Succinate 200 mg PO DAILY 12/26/16 [History] Omeprazole [PriLOSEC] 40 mg PO DAILY 12/26/16 [History] Simvastatin [Zocor] 40 mg PO HS 12/26/16 [History] metFORMIN [Glucophage] 500 mg PO BIDWM 12/26/16 [History] levoFLOXacin [Levaquin] 750 mg PO DAILY #6 tab 12/30/16 [Rx] Óscar/Poly/HC *EAR* SUSP [Cortisporin *EAR* Susp] 4 drop RIGHT EAR QID #15 drops.susp 01/02/17 [Rx] Allergies/Adverse Reactions: 3 Allergy/AdvReac Type Severity Reaction Status Date / Time No Known Allergies Allergy Verified 10/23/16 13:45 Procedures/tests Complete & Pending: Procedures Performed prior 72 hours Category Date Time Status US retroperitoneal comp [US] Routine Exams 01/05/17 11:00 Completed MR head/brain wo con [MR] Routine MRI 01/05/17 08:08 Completed Date of admission: 01/04/17 18:47 Primary care physician: Lorenzo Snell CNP Consults: 01/04/17 22:15 Consult to Occupational Therapy [CONS] Routine Comment: Evaluate, develop and implement POC Reason for Consult: frequent falls. Right leg pain and weakness Consult to Physical Therapy [CONS] Routine Comment: Evaluate, develop and implement POC Reason for Consult: frequent falls. Right leg pain and weakness Discharging clinician: Tierra Ortiz Anticipated date of discharge: 01/06/17 - Patient Status Disposition: Home, Self-Care Condition: Fair Functional capacity at discharge: independent ambulation Overall status at discharge: patient is back to baseline - Discharge Instructions Follow Up With: Lorenzo Snell CNP [Primary Care Provider] - Anil Jones DO [Partnered Physician] - Additional Instructions: Follow-up with primary care provider within one to 2 weeks. Have blood work drawn within one week. Hold lisinopril and check blood pressure daily and follow up closely with your PCP. Follow-up with pain management as needed - Diet and Activity Activity: increase activity as tolerated Diet: diabetic diet, low fat, low cholesterol, low salt diet Hospital course: Ms. Mendoza is a 56 year old female with past medical history of hypertension, hyperlipidemia, diabetes, fibromyalgia, RA, pseudotumor cerebri, morbid obesity. Patient presented to the emergency department chief complaint of increased stuttering, weakness, and falls. Patient stating that she stutters from time to time but states that her stuttering has gotten worse over the past couple days prior to presentation. She also reported falling 3 times on the day of presentation and hit herself on the furniture and she thinks it is because her right leg is weak. Patient also complaining of pain in her right knee that shoots up her leg to her back. She denied any numbness or tingling in that leg. She also endorsed occasional dizziness. She denied chest pain, palpitations, shortness of breath, nausea or vomiting or abdominal pain. She endorsed a normal appetite. No recent fevers. Workup in the emergency department unremarkable other than acute kidney injury. Head CT negative. Patient was admitted to the hospitalist service for further evaluation and management. Her urinalysis was abnormal and she was diagnosed with a urinary tract infection and started on levofloxacin. This was continued during this admission. Urine culture ended up being grossly mixed and likely consistent with a contamination. She was instructed to continue the rest of the levofloxacin doses upon discharge. Mild leukocytosis resolved-suspect stress related. Vital signs remained stable. Regarding her stuttering, her speech was fluid and intelligible throughout this admission. She had no focal neurological weaknesses on examination. She was seen and evaluated by occupational and physical therapy both of whom surmised she had no needs. Her acute kidney injury improved daily over the course of her too night admission. MRI negative for acute processes and CVA ruled out. Retroperitoneal ultrasound unremarkable. During this admission, patient repeatedly asked for more and more pain medication. Patient informed me that she had been on Percocet tens and Percocet 7.5 however when I reviewed her [facility] report, patient has multiple prescribers and has not had regular, long-term prescribing of any controlled substances other than gabapentin. Patient recently received a 2 day supply of hydrocodone-acetaminophen 5-325 5 days prior to presentation. Strong suspicion for drug seeking behavior. Also on examination, patient listed multiple areas of pain and those areas changed depending upon whom she was talking to. She has also been seen by 2 providers at [facility]. She saw Dr. Bartlett on 11/15/16 and he referred her to Dr. Jones for consideration of possible nerve stimulator/injections. She saw Dr. Jones on 12/04/16. Neither of these providers wrote for controlled substances for this patient. Furthermore, patient stating that she allegedly has an appointment with a pain management doctor soon and that is down in [facility]. As she had no new symptoms or no changes to her chronic pain, she was not given any narcotic pain medication during this admission. She was quite upset on day of discharge. She was instructed to follow-up with her primary care team regarding chronic pain management. She was also instructed to have her BMP checked within 1 week given her acute kidney injury to ensure its resolution. We held her lisinopril and HCTZ during this admission and she remained normotensive. Of note, patient stating that she was no longer taking her HCTZ. He was instructed to hold off on taking her lisinopril at time of discharge and she was instructed to check her blood pressure daily and have close outpatient follow-up. She was discharged home in stable condition with close outpatient follow-up recommended. ITS Impressions Head CT 01/04/17 16:06 IMPRESSION: No acute intracranial abnormality. D/ / Javon Nunez MD / Javon Nunez MD Interpreting Provider: Javon Nunez MD Brain MRI 01/05/17 08:08 IMPRESSION: No acute intracranial abnormality. Minimal chronic microvascular disease. D/ / Armando Orlando MD / Armando Orlando MD Interpreting Provider: Armando Orlando MD Retroperitoneum Ultrasound 01/05/17 11:00 IMPRESSION: Unremarkable ultrasound of the kidneys and urinary bladder. D/ / Sebas José MD / Sebas José MD Interpreting Provider: Sebas José MD - Time Spent with Patient Total time spent providing and/or coordinating discharge services: - Constitutional Vitals: Temp Pulse Resp BP Pulse Ox 97.8 F 88 16 133/73 94 01/06/17 07:22 01/06/17 07:22 01/06/17 07:22 01/06/17 07:22 01/06/17 07:22 General appearance: Present: A&O X 3, morbidly obese, pleasant, no acute distress, answers questions appropriately - Head Head exam: Present: atraumatic, normocephalic - Eye Eye exam: Present: PERRL, conjuntiva pink, sclera anicteric Pupils: Present: PERRL - Neck Neck exam general surgery: Present: supple, trachea midline. Absent: lymphadenopathy - Respiratory Respiratory exam: Present: CTAB. Absent: accessory muscle use, rales, respiratory distress, rhonchi, wheezes - Cardiovascular Cardiovascular exam: Present: RRR, +S1, +S2. Absent: diastolic murmur, gallop, rubs, systolic murmur - GI/Abdominal GI/Abdominal exam: Present: normal bowel sounds, soft, no peritoneal signs. Absent: distended, tenderness - Extremities Exam Extremities exam: Present: warm, radial pulses palpable and symmetrical. Absent : calf tenderness, cyanotic, pedal edema - Neurological Exam Neurological exam: Present: alert, CN II-XII intact, normal gait, oriented X3, no focal deficits, strengths equal and symetr throughout. Absent: pronater drift, facial droop, speech deficit - Skin Skin exam: Present: dry, intact, normal color, warm
--- NOTE | 2017-01-07 09:46 | Electrocardiograph Report ---
[place] [id number] Test Date: 2017-01-04 Pat Name: Yara Mendoza Department: [id number] Room: 3B45 Gender: F Production Potter: EKP : [id number] Requested By: Kizzy Marmolejo Order Number: [id number] Reading MD: Calderon Forrest MD Measurements Intervals Oley Rate: 86 P: NV: 0 QRS: 48 QRSD: 90 T: 60 QT: 358 QTc: 401 Interpretive Statements SINUS RHYTHM BASELINE ARTIFACT, REPEAT EKG BASELINE ARTIFACT COMPLICATES ACCURATE INTERPRETATION Electronically Signed On 01-07-2017 9:44:51 EDT by Calderon Forrest MD
== END 2017-01-06 11:15 | disposition home or self-care (01) ==
LOC: 3BNU 15:59 → EMEROO 15:59 → 3BNU 19:48
PROVIDERS: ADMIT Nurse Practitioner Family; ATTEND Nurse Practitioner Family

== ENCOUNTER 2017-03-16 02:56 | Inpatient (IN) ==
[2017-03-16] MEDS ORDERED: *HR* Morphine 2 MG/ML SYRINGE IVP PRN (05:18)
[2017-03-16] MEDS ORDERED: D5% in Water 1,000 ML IVC PRN (05:18)
[2017-03-16] MEDS ORDERED: Ondansetron 4 MG/2 ML VIAL IVP PRN (05:18)
[2017-03-16] MEDS ORDERED: Naloxone 0.4 MG/ML INJ IVP PRN (05:18)
[2017-03-16] MEDS ORDERED: Dextrose Gel 15 GM PO PRN ×2 (05:18)
[2017-03-16] MEDS ORDERED: *HR* Dextrose 50 % in Water (Syg) 50 ML SYRINGE IVP PRN (05:18)
--- NOTE | 2017-03-16 05:27 | Internal Med History&Physical ---
Date of Encounter: 03/16/17 Time of Encounter: 05:25 Assessment and Plan (1) Acute metabolic encephalopathy Current visit: Yes Status: Acute Toxic acute metabolic encephalopathy likely secondary to multiple drug toxicities in the setting of acute renal failure Hold gabapentin, lisinopril, ketorolac, metformin, colchicine and hydrochlorothiazide Start IV fluids Consider nephrology consult if not improving Urine tests Check chest x-ray, ammonia Famotidine for GI prophylaxis and subcutaneous heparin for DVT prophylaxis. The patient will be admitted as inpatient, expected to stay more than 2 midnights. Full code. Time spent on this admission 40 minutes (2) LINCOLN (acute kidney injury) Current visit: No Status: Acute (3) UTI (urinary tract infection) Current visit: No Status: Acute Send urine culture Start Rocephin Qualifiers: Urinary tract infection type: site unspecified Hematuria presence: with hematuria Qualified Code(s): N39.0 - Urinary tract infection, site not specified; R31.9 - Hematuria, unspecified (4) Morbid obesity with BMI of 40.0-44.9, adult Current visit: No Status: Chronic (5) Type 2 diabetes mellitus Current visit: No Status: Chronic Hold metformin, use insulin sliding scale Qualifiers: Diabetes mellitus complication status: without complication Diabetes mellitus custodial insulin use: without long term acute care registered nurse use Qualified Code(s): E11.9 - Type 2 diabetes mellitus without complications (6) Drug-seeking behavior Current visit: No Status: Suspected Internal Medicine - H&P: HPI Chief complaint: Altered mental status Admitted From: Emergency Dept History of present illness: Ms. Mendoza is a 56 year old female with a past medical history of chronic kidney disease stage III, diabetes type 2 not insulin-dependent, irritable bowel syndrome, pseudotumor cerebri, was brought to [facility] emergency room due to severe confusion for the past few days. The patient is oriented only person, very somnolent, unable to recognize most of her family members. Her creatinine is 6.53, her prior value is 1.45. BUN is 56, prior value was 23. UA shows [address] scan of the head did not show any abnormality. Urine tox screen was positive for oxycodone, benzodiazepines and marijuana. It is not clear whether the patient has been using illicit drugs. The note from [facility] ER mentions that one of the family members was suspicious of the patient spending her check on illicit drugs as she had a similar episode a few months ago after getting her paycheck. Also, she has been having an acute gout attack and was taking colchicine, metformin, ketorolac, lisinopril, hydrochlorothiazide. The patient has been taking also gabapentin and toxicity is suspected in the setting of acute renal failure. Heart rate was 103 and blood pressure dropped to 89/37 at [facility] ER but is responding at the moment. Past Med Surg Social Fam HX - Past Medical History Medical history: diabetes (Not insulin-dependent), fibromyalgia, GERD, hyperlipidemia, hypertension, RA, other (Chronic kidney disease stage III, rheumatoid arthritis, fibromyalgia, TIAs, morbid obesity, spondylolisthesis, irritable bowel syndrome, diverticulosis, possible seizures/questionable?, Neuropathy, GERD, pseudotumor cerebri, depression) Psychiatric history: anxiety, depression - Past Surgical History Surgical History: appendectomy, , cholecystectomy, orthopedic, other, other (PROCESSING SPECIALIST shunt removal, spinal fusion and laminectomy, bilateral total knee replacements, carpal tunnel, ERCP with sphincterectomy, hysterectomy) - Social History Smoking Status: Never smoker Smokeless Tobacco Status: No Alcohol use: occasionally Drug use: none - Family History Mother Adopted: No Living Status: Unknown Hx Family Cardiac Disorders: No Hx Family Respiratory Disorders: No Hx Family Cancer: No Hx Family GI Disorders: No Hx Family Genitourinary Disorders: No Hx Family Endocrine Disorder: No Hx Family Musculoskeletal Disorders: No Hx Family Neuromuscular Disorders: No Hx Family Neurologic Disorders: No Hx Family HEENT Disorders: No Hx Family Autoimmune Disorders: No Hx Family Reproductive Disorders: No Hx Family Psychosocial Disorders: No Hx Family Medical Disorders: No - Additional Family History Additional family history: She is an orphan according to prior records Internal Medicine - H&P: Meds Gabapentin [Neurontin] 800 mg PO TID 12/26/16 [History] Metoprolol Succinate 200 mg PO DAILY 12/26/16 [History] Omeprazole [PriLOSEC] 40 mg PO DAILY 12/26/16 [History] Simvastatin [Zocor] 40 mg PO HS 12/26/16 [History] metFORMIN [Glucophage] 500 mg PO BIDWM 12/26/16 [History] Citalopram [CeleXA] 10 mg PO HS 03/15/17 [History] Cyclobenzaprine [Flexeril] 10 mg PO TID 03/15/17 [History] HydrOXYzine Pamoate [Vistaril] 50 mg PO BID PRN 03/15/17 [History] PredniSONE [Deltasone] 20 mg PO BID 03/15/17 [History] hydroCHLOROthiazide [Hydrochlorothiazide] 12.5 mg PO DAILY 03/15/17 [History] 3 Allergy/AdvReac Type Severity Reaction Status Date / Time No Known Allergies Allergy Verified 01/28/17 13:41 All Systems PM: A 10-system review of systems was performed and is negative for pertinent findings except as documented above in the HPI. Review of systems: Unable to complete review of systems due to the patient's confusion - Constitutional Vitals: Temp Pulse Resp BP Pulse Ox 98.4 F 102 16 104/68 94 03/16/17 04:32 03/16/17 04:32 03/16/17 04:32 03/16/17 04:32 03/16/17 04:32 General appearance: Present: A&O X 1 Exam: Lethargic, following minimal commands, does not appear dehydrated - Head Head exam: Present: atraumatic, normocephalic - Eye Eye exam: Present: PERRL, conjuntiva pink, sclera anicteric Pupils: Present: PERRL - Neck Neck exam general surgery: Present: supple, trachea midline. Absent: lymphadenopathy - Respiratory Respiratory exam: Present: CTAB. Absent: accessory muscle use, rales, rhonchi, wheezes - Cardiovascular Cardiovascular exam: Present: RRR, +S1, +S2. Absent: diastolic murmur, gallop, rubs, systolic murmur - GI/Abdominal GI/Abdominal exam: Present: distended, normal bowel sounds, soft, no peritoneal signs. Absent: tenderness - Extremities Exam Extremities exam: Present: warm, radial pulses palpable and symmetrical. Absent : calf tenderness, cyanotic, pedal edema - Neurological Exam Neurological exam: Present: CN II-XII intact, no focal deficits. Absent: oriented X3, pronater drift, facial droop, speech deficit - Skin Skin exam: Present: dry, intact
[2017-03-16] MEDS: *HR* Heparin 5,000 UNIT/ML VIAL SQ SCH ×3 (06:31→21:40)
[2017-03-16] MEDS: 0.9 % Sodium Chloride 1,000 ML IVC SCH ×2 (06:32→18:14)
[2017-03-16] MEDS ORDERED: 0.9 % Sodium Chloride 1,000 ML IVC ONE (07:51)
[2017-03-16] MEDS: Insulin LISPRO 300 UNITS/3 ML VIAL SQ SCH ×4 (08:27→16:29)
[2017-03-16] MEDS: Famotidine 20 MG TABLET PO SCH ×2 (08:27→10:40)
[2017-03-16] MEDS: Metoprolol XL (24 HR) Succ 50 MG TAB.ER.24H PO SCH ×2 (08:27→10:40)
--- NOTE | 2017-03-16 10:36 | Event Note ---
Date of Encounter: 03/16/17 Time of Encounter: 10:33 Seen and evaluated at bedside with daughter 56 F with Morbid Obesity, CKD possibly stage III, DM, chronic pain , Gout, and Polysubstance abuse. Admitted for LINCOLN on CKD, Acute metabolic encephalopathy. She is awake and alert at my time of review, says "yeah" but mute to questions Pupils are equal and reactive, no facial dropp, moves all extremities equally Chest is CTAB to anterior auscultation HS S1, S2 onl, no m/g/r. Extremities: No edema Labs and Imaging reviewed BUN/Cr 56/6.53, baseline is 1.3. CO2 18. CBC/coag WNL, A1C 5.6. UA is dirty. Utox with THC, Opiates, BZP, Oxycodone. Ammonia is normal A/P LINCOLN on CKD Metabolic acidosis secondary to LINCOLN Metabolic encephalopathy secondary to LINCOLN, Polysubstance abuse Polysubstance abuse DM appears controlled HTN [place] for UO measurement Strict I/O Continue IVF Follow urine work up Renal USS Monitor for withdrawal [facility] report shows patient's last prescription for 2 pills of percocet was 2016, she receives gabapentin 800mg TID Hold all nephrotoxic meds Nephrology consult Aspiration precautions Condition is serious
--- NOTE | 2017-03-16 11:58 | Nephrology Consult Note ---
Date of Encounter: 03/16/17 Time of Encounter: 11:56 Assessment and Plan (1) Acute metabolic encephalopathy Current Visit: Yes Status: Acute Likely related to polypharmacy/illicit drug use. There also appears to be a psychogenic component. Management per primary team. At this time I do not think his uremia. (2) LINCOLN (acute kidney injury) Current Visit: No Status: Acute The patient has acute kidney injury possibly superimposed on chronic kidney disease. Her renal decline seems to have started at the end of December and was mild until this most recent hospitalization when it worsened. Review of her urinalysis reveals a progressive proteinuria of unclear etiology. Unfortunately the patient is unable to provide any history, but her family member at her bedside reports that she did have kidney injury in the past that improved with hydration. At this time I suspect that her renal decline is mostly prerenal, but with increased protein excretion will need to rule out other causes for her acute kidney injury. Agree with a renal ultrasound. Agree with placement of Pineda for accurate urine collection. Hold nephrotoxins. Adjust medications for renal function. At the time of my evaluation she does not need renal replacement therapy. We will follow daily to assess for the need for dialysis. We will perform a serologic workup to see if the patient needs a renal biopsy. (3) Illicit drug use Current Visit: No Status: Acute Per the primary team. (4) Morbid obesity with BMI of 40.0-44.9, adult Current Visit: No Status: Chronic Outpatient management. (5) Type 2 diabetes mellitus Current Visit: No Status: Chronic Management per primary team. Qualifiers: Diabetes mellitus complication status: without complication Diabetes mellitus bed bug exterminator insulin use: without senior living use Qualified Code(s): E11.9 - Type 2 diabetes mellitus without complications History of Present Illness - Reason for Consult Consult date: 03/16/17 Acute Kidney Injury - Chief Complaint LINCOLN - History of Present Illness Ms. Mendoza is a 56 yo woman with a history of DM who presented to an outside hospital for the evaluation of altered mental status. She was found to have acute kidney injury and multiple drugs in her system and was subsequently transferred to [facility]. The history is from review of the patient' s chart along with information from her family at the bedside as the patient does not participate in her history at all. Review of systems is unobtainable as the patient will participate in her history. Past Med Surg Social Fam HX - Past Medical History Medical history: diabetes (Not insulin-dependent), fibromyalgia, GERD, hyperlipidemia, hypertension, RA, other (Chronic kidney disease stage III, rheumatoid arthritis, fibromyalgia, TIAs, morbid obesity, spondylolisthesis, irritable bowel syndrome, diverticulosis, possible seizures/questionable?, Neuropathy, GERD, pseudotumor cerebri, depression) Psychiatric history: anxiety, depression - Past Surgical History Surgical History: appendectomy, , cholecystectomy, orthopedic, other, other (FIN[employer] SPECIALIST shunt removal, spinal fusion and laminectomy, bilateral total knee replacements, carpal tunnel, ERCP with sphincterectomy, hysterectomy) - Social History Smoking Status: Never smoker Smokeless Tobacco Status: No Alcohol use: occasionally Drug use: none - Family History Mother Adopted: No Living Status: Unknown Hx Family Cardiac Disorders: No Hx Family Respiratory Disorders: No Hx Family Cancer: No Hx Family GI Disorders: No Hx Family Genitourinary Disorders: No Hx Family Endocrine Disorder: No Hx Family Musculoskeletal Disorders: No Hx Family Neuromuscular Disorders: No Hx Family Neurologic Disorders: No Hx Family HEENT Disorders: No Hx Family Autoimmune Disorders: No Hx Family Reproductive Disorders: No Hx Family Psychosocial Disorders: No Hx Family Medical Disorders: No Medications and Allergies Gabapentin [Neurontin] 800 mg PO TID 12/26/16 [History] Metoprolol Succinate 200 mg PO DAILY 12/26/16 [History] Omeprazole [PriLOSEC] 40 mg PO DAILY 12/26/16 [History] Simvastatin [Zocor] 40 mg PO HS 12/26/16 [History] metFORMIN [Glucophage] 500 mg PO BIDWM 12/26/16 [History] Citalopram [CeleXA] 10 mg PO HS 03/15/17 [History] Cyclobenzaprine [Flexeril] 10 mg PO TID 03/15/17 [History] HydrOXYzine Pamoate [Vistaril] 50 mg PO BID PRN 03/15/17 [History] PredniSONE [Deltasone] 20 mg PO BID 03/15/17 [History] hydroCHLOROthiazide [Hydrochlorothiazide] 12.5 mg PO DAILY 03/15/17 [History] 3 Allergy/AdvReac Type Severity Reaction Status Date / Time No Known Allergies Allergy Verified 01/28/17 13:41 Review of Systems ROS unobtainable: due to mental status Exam - Vital Signs Vital signs: Initial Vital Signs Temp Pulse Resp BP Pulse Ox 98.4 F 102 16 104/68 94 03/16/17 04:32 03/16/17 04:32 03/16/17 04:32 03/16/17 04:32 03/16/17 04:32 Vital Signs - Last 8 Hours Temp Pulse Resp BP Pulse Ox 03/16/17 04:32 98.4 F 102 16 104/68 94 Intake and Output 03/15/17 03/16/17 03/16/17 23:59 07:59 15:59 Intake Total 0 / 0 Balance 0 / 0 Intake: Oral 0 / 0 Other: Meal Breakfast Percent of Meal Consumed 0% Weight 105.2 kg 109.8 kg Blood Glucose* 104 111 Patient Weight 03/16/17 23:59 Weight 109.8 kg - General Appearance General appearance: well-developed, well-nourished, obese EENT: ATNC Neck: supple Respiratory: clear Cardiology: edema (trace edema), regular rate Gastrointestinal: normoactive bowel sounds, no tenderness, obese Integumentary: warm and dry Additional Comments: Patient will not answer questions. Musculoskeletal: no cyanosis Additional Comments: Patient will not answer questions. She keeps her eyes closed. Consult Discharge Plan - Plan Referrals: Lorenzo Snell CNP [Primary Care Provider] -
[2017-03-16] MEDS ORDERED: *HR* LORazepam 2 MG/ML VIAL IVP ONE (15:30)
[2017-03-16] MEDS ORDERED: *HR* LORazepam 0.5 MG TABLET PO PRN (15:34)
[2017-03-17 00:07] LABS: Protein/Creatinine Ratio,Urine 0.37 mg/mg (0-0.20)
[2017-03-17] MEDS: Acetaminophen 325 MG TABLET PO PRN ×3 (01:39→21:52)
[2017-03-17] MEDS: 0.9 % Sodium Chloride 1,000 ML IVC SCH (02:13)
[2017-03-17 05:13] LABS: Basophils % 0.5 %; Eosinophils # 0.1 K/mcL (0.0-0.6); Hematocrit 33.7 % (35.3-44.9); Hemoglobin 10.7 g/dL (11.5-15.4); Immature Granulocytes % 0.4 % (0-4); Lymphocytes # 1.7 K/mcL (0.6-4.6); Lymphocytes % 30.1 %; Mean Corpuscular HGB Conc 31.8 g/dL (31.6-35.5); Mean Corpuscular Hemoglobin 29.2 pg (28.0-33.3); Mean Corpuscular Volume 92.1 fL (83.0-100.0); Mean Platelet Volume 10.6 fL (9.4-12.4); Monocytes # 0.4 K/mcL (0.0-1.3); Monocytes % 7.9 %; Neutrophils # 3.3 K/mcL (1.6-8.9); Platelet Count 191 K/mcL (140-400); Red Blood Count 3.66 M/mcL (3.82-4.97); Red Cell Distribution Width 13.7 % (11.5-14.5); Segmented Neutrophils % 59.1 %
[2017-03-17 05:26] LABS: Calcium 9.5 mg/dL (8.6-10.8); Potassium 3.8 mEq/L (3.5-4.5)
[2017-03-17 05:28] LABS: Rheumatoid Factor < 15 IU/mL (0-29)
[2017-03-17] MEDS: cefTRIAXone 1,000 MG in Water for inj. (sterile) 10 ML IVP SCH (05:40)
[2017-03-17] MEDS: *HR* Heparin 5,000 UNIT/ML VIAL SQ SCH ×3 (05:45→20:47)
[2017-03-17 05:50] LABS: Hepatitis B Surface Antigen Nonreactive (Nonreactive)
[2017-03-17] MEDS: Metoprolol XL (24 HR) Succ 50 MG TAB.ER.24H PO SCH (08:00)
[2017-03-17] MEDS: Insulin LISPRO 300 UNITS/3 ML VIAL SQ SCH ×3 (08:00→17:29)
[2017-03-17] MEDS: Famotidine 20 MG TABLET PO SCH (08:01)
--- NOTE | 2017-03-17 09:18 | Nephrology Progress Note ---
Date of Encounter: 03/17/17 Time of Encounter: 09:13 - Assessment and Plan (1) Acute metabolic encephalopathy Current Visit: Yes Status: Acute This seems to have resolved. The patient is more oriented this morning. She has no complaint. Per primary team. (2) LINCOLN (acute kidney injury) Current Visit: No Status: Acute The creatinine of 6 may have been a lab error. Her creatinine is better than it has been since December. Awaiting serologic workup. Her renal ultrasound in December was unremarkable. Continue to avoid nephrotoxins. Adjust medications for renal function. We will continue hydration for now, but this can be discontinued after the next liter. We will repeat urinalysis. (3) Morbid obesity with BMI of 40.0-44.9, adult Current Visit: No Status: Chronic Outpatient management. (4) Type 2 diabetes mellitus Current Visit: No Status: Chronic Per primary team. Qualifiers: Diabetes mellitus complication status: without complication Diabetes mellitus penitentiary insulin use: without intermediate card tender use Qualified Code(s): E11.9 - Type 2 diabetes mellitus without complications (5) Acidosis Current Visit: Yes Status: Acute Patient metabolic acidosis. I will give intravenous sodium bicarbonate. (6) Anemia Current Visit: Yes Status: Acute This may be dilutional. will check iron stores, vitamin B-12, and folate. Qualifiers: Qualified Code(s): D64.9 - Anemia, unspecified Subjective Principal diagnosis: LINCOLN, Altered mental status. Interval history: The patient was seen this morning. She sitting up in bed Alert and pleasant. She has no complaints. Objective - Vital Signs Vital signs: Vital Signs Temp Pulse Resp BP Pulse Ox 03/17/17 07:29 98.2 F 80 13 142/79 96 03/17/17 04:23 97.7 F 74 16 129/76 97 03/16/17 23:32 98.7 F 88 18 132/76 96 03/16/17 19:05 98.4 F 74 16 103/66 94 03/16/17 15:34 99.6 F 77 20 98/64 93 Intake and Output 03/17/17 03/17/17 03/17/17 00:59 07:59 15:59 Intake Total Output Total Balance Intake: IV Fluids 0.9 % Sodium Chloride 1,000 ML @ 125 mls/hr IVC .Q8H TEENA Rx#: [id number] Output: Urine Other: Weight Blood Glucose* Patient Weight 03/17/17 22:59 Weight 107.774 kg - General Appearance General appearance: Present: well-developed, well-nourished, obese EENT: Present: ATNC Neck: Present: supple Respiratory: Present: clear Cardiology: Present: no edema, regular rate Gastrointestinal: Present: obese Integumentary: Present: warm and dry Neurologic: Present: alert and oriented x3 Musculoskeletal: Present: no cyanosis Psychiatric: Present: mood/affect appropriate - Lab 03/17/17 03:44 03/17/17 03:44 Most recent lab results Calcium 9.5 mg/dL (8.6-10.8) 03/17/17 03:44 Magnesium 1.7 mg/dL (1.6-2.6) 03/17/17 03:44 Urine Creatinine 178 mg/dL 03/16/17 23:41 Urine Sodium 72.0 mEq/L 03/16/17 23:41 Urine Total Protein 65 mg/dL (1-14) H 03/16/17 23:41 - VTE Documentation of Mechanical Device: Intermittent pneumatic compression device Consult Discharge Plan - Plan Referrals: Lorenzo Snell HAND SOLE SEWER [Primary Care Provider] -
--- NOTE | 2017-03-17 10:09 | Internal Med Progress Note ---
Date of Encounter: 03/17/17 Time of Encounter: 10:07 - Assessment and plan (1) Acute kidney injury (nontraumatic) Current Visit: Yes Status: Acute Assessment and plan: Improving D/C IVF Obtain renal USS Patient is making urine Encourage liberal fluid intake (2) Type 2 diabetes mellitus Current Visit: Yes Status: Chronic Assessment and plan: Controlled Continue sliding scale Hold insulin Qualifiers: Diabetes mellitus complication status: without complication Diabetes mellitus terminal clerk insulin use: without terminal clerk use Qualified Code(s): E11.9 - Type 2 diabetes mellitus without complications (3) UTI (urinary tract infection) Current Visit: Yes Status: Suspected Assessment and plan: Suspected Continue antibiotics d-escalate with urine culture reports Qualifiers: Urinary tract infection type: site unspecified Hematuria presence: without hematuria Qualified Code(s): N39.0 - Urinary tract infection, site not specified (4) Morbid obesity with BMI of 40.0-44.9, adult Current Visit: Yes Status: Chronic Assessment and plan: Lifestyle modification (5) Acute metabolic encephalopathy Current Visit: Yes Status: Resolved Assessment and plan: Resolved Multifactorial: LINCOLN, Polysubstance use, suspected UTI (6) Acidosis Current Visit: Yes Status: Acute Assessment and plan: Stable, expect improvement with renal function improvement (7) Anemia Current Visit: Yes Status: Chronic Assessment and plan: Chronic, stable Qualifiers: Anemia type: unspecified type Qualified Code(s): D64.9 - Anemia, unspecified (8) Polysubstance abuse Current Visit: Yes Status: Chronic Assessment and plan: THC, Benzo, Opiates, NO prescriber per OARSS report Patient states she is using all because of childhood related problems Consider referral to psych Taper benzo MOnitor for withdrawal - Subjective Interval history: Seen and evaluated at bedside with daughter 56 F with Morbid Obesity, CKD possibly stage III, DM, chronic pain , Gout, and Polysubstance abuse. Admitted for LINCOLN on CKD, Acute metabolic encephalopathy. No new complains, she is clinically improving - Constitutional Vitals: Temp Pulse Resp BP Pulse Ox 98.2 F 80 13 142/79 96 03/17/17 07:29 03/17/17 07:29 03/17/17 07:29 03/17/17 07:29 03/17/17 07:29 She is awake and alert oriented X3 Pupils are equal and reactive, no facial dropp, moves all extremities equally Chest is CTAB to anterior auscultation HS S1, S2 onl, no m/g/r. Extremities: No edema General appearance: Present: A&O X 1, morbidly obese Internal Medicine: Result - Labs CBC & Chem 7: 03/17/17 03:44 03/17/17 03:44 Labs: Short CBC 03/17/17 Range/Units 03:44 WBC 5.6 (4.3-11.1) K/mcL Hgb 10.7 L (11.5-15.4) g/dL Hct 33.7 L (35.3-44.9) % Plt Count 191 (140-400) K/mcL Neutrophils # 3.3 (1.6-8.9) K/mcL BMP 03/17/17 03:44 Sodium 142 Potassium 3.8 Chloride 113 H Carbon Dioxide 18 L BUN 46 H D Creatinine 1.21 H D Glucose 93 Calcium 9.5 - Impressions Impressions Bladder Ultrasound 03/16/17 13:30 IMPRESSION: Grossly unremarkable appearance of the bladder. Per the vascular technologist sonographer, the patient refused the renal portion of the exam. D/ / 03/16/2017 14:32:45 Johnny Herrera MD / Kelli Bartlett Interpreting Provider: Johnny Herrera MD - VTE Documentation of Mechanical Device: Intermittent pneumatic compression device Consult Discharge Plan - Plan Referrals: Lorenzo Snell CNP [Primary Care Provider] -
[2017-03-18] MEDS: Acetaminophen 325 MG TABLET PO PRN (06:04)
[2017-03-18] MEDS: *HR* Heparin 5,000 UNIT/ML VIAL SQ SCH ×2 (06:05→14:04)
[2017-03-18] MEDS: cefTRIAXone 1,000 MG in Water for inj. (sterile) 10 ML IVP SCH (06:05)
[2017-03-18] MEDS: Famotidine 20 MG TABLET PO SCH (06:05)
[2017-03-18] MEDS: Insulin LISPRO 300 UNITS/3 ML VIAL SQ SCH ×2 (07:10→11:41)
[2017-03-18 07:25] LABS: BUN/Creatinine Ratio 41 (6-26); Calcium 9.9 mg/dL (8.6-10.8); Carbon Dioxide 20 mEq/L (19-29); Chloride 113 mEq/L (98-109); Glucose 106 mg/dL (70-99); Osmolality,Calculated 298 (280-300); Potassium 4.1 mEq/L (3.5-4.5); Sodium 141 mEq/L (136-145); eGFR For African Americans > 60 (> 60); eGFR For Non-African Americans > 60 (> 60)
[2017-03-18 07:26] LABS: Basophils % 0.7 %; Blood Urea Nitrogen 29 mg/dL (7-20); Eosinophils # 0.2 K/mcL (0.0-0.6); Eosinophils % 2.6 %; Hematocrit 33.3 % (35.3-44.9); Immature Granulocytes % 0.3 % (0-4); Lymphocytes # 1.9 K/mcL (0.6-4.6); Lymphocytes % 31.7 %; Mean Corpuscular Hemoglobin 29.6 pg (28.0-33.3); Mean Corpuscular Volume 89.8 fL (83.0-100.0); Mean Platelet Volume 10.6 fL (9.4-12.4); Monocytes # 0.5 K/mcL (0.0-1.3); Monocytes % 7.7 %; Neutrophils # 3.3 K/mcL (1.6-8.9); Platelet Count 202 K/mcL (140-400); Red Blood Count 3.71 M/mcL (3.82-4.97); Red Cell Distribution Width 13.2 % (11.5-14.5)
[2017-03-18] MEDS: Metoprolol XL (24 HR) Succ 50 MG TAB.ER.24H PO SCH (08:12)
[2017-03-18 08:31] LABS: Hepatitis A Antibody IgM Nonreactive (Nonreactive); Hepatitis B Core IgM Nonreactive (Nonreactive); Hepatitis C Virus Antibody Nonreactive (Nonreactive)
[2017-03-18 09:25] LABS: % Iron Saturation 27 % (15-50); Iron 73 mcg/dL (50-170); Transferrin 195 mg/dL (180-382)
[2017-03-18 09:41] LABS: Ferritin 141 ng/ml (5-204)
--- NOTE | 2017-03-18 10:43 | Discharge Summary ---
Date of Encounter: 03/18/17 Time of Encounter: 10:43 - Discharge Diagnosis (1) Acute kidney injury (nontraumatic) Priority: Primary Status: Acute (2) Type 2 diabetes mellitus Priority: Secondary Status: Chronic Qualifiers: Diabetes mellitus complication status: without complication Diabetes mellitus nursing home insulin use: without nursing home use Qualified Code(s): E11.9 - Type 2 diabetes mellitus without complications (3) UTI (urinary tract infection) Priority: Primary Status: Suspected Qualifiers: Urinary tract infection type: site unspecified Hematuria presence: without hematuria Qualified Code(s): N39.0 - Urinary tract infection, site not specified (4) Morbid obesity with BMI of 40.0-44.9, adult Priority: Secondary Status: Chronic (5) Acute metabolic encephalopathy Priority: Primary Status: Resolved (6) Acidosis Priority: Primary Status: Resolved (7) Anemia Priority: Secondary Status: Chronic Qualifiers: Anemia type: unspecified type Qualified Code(s): D64.9 - Anemia, unspecified (8) Polysubstance abuse Priority: Primary Status: Chronic - Discharge Medications Home Medications: Gabapentin [Neurontin] 800 mg PO TID 12/26/16 [History] Metoprolol Succinate 200 mg PO DAILY 12/26/16 [History] Omeprazole [PriLOSEC] 40 mg PO DAILY 12/26/16 [History] Simvastatin [Zocor] 40 mg PO HS 12/26/16 [History] metFORMIN [Glucophage] 500 mg PO BIDWM 12/26/16 [History] Citalopram [CeleXA] 10 mg PO HS 03/15/17 [History] DULoxetine [Cymbalta] 60 mg PO DAILY 03/16/17 [History] Lisinopril [Zestril] 40 mg PO DAILY 03/16/17 [History] Topiramate [Topamax] 25 mg PO DAILY 03/16/17 [History] Allergies/Adverse Reactions: 3 Allergy/AdvReac Type Severity Reaction Status Date / Time No Known Allergies Allergy Verified 01/28/17 13:41 Procedures/tests Complete & Pending: Procedures Performed prior 72 hours Category Date Time Status US bladder/limited pelvis [US] Stat Exams 03/16/17 13:30 Completed Date of admission: 03/16/17 05:18 Primary care physician: Lorenzo Snell CNP Consults: 03/16/17 04:44 Consult to Interior Assemblies Developer Prover [CONS] Routine Reason for SW Consult: meds, 03/16/17 07:52 Consult to Nephrology [CONS] Routine Consulting Provider: Kidney Eliza/RAJENDRA/HIMA/MILLICENT Reason for Consult: LINCOLN on CKD Call Completed: No Discharging clinician: Monster Varela Anticipated date of discharge: 03/18/17 - Patient Status Disposition: Home, Self-Care Condition: Good Functional capacity at discharge: independent ambulation Overall status at discharge: patient is back to baseline - Discharge Instructions Instructions: Acute Kidney Injury (DC), Diabetes Mellitus Type 2 in Adults (DC) , Anemia (GEN) Follow Up With: Lorenzo Snell CNP [Primary Care Provider] - 03/21/17 2:00 pm - Diet and Activity Activity: resume usual activities as tolerated Diet: diabetic diet, low fat, low cholesterol, low salt diet Interval History: See below Hospital course: Ms. Mendoza is a 56 year old female with Morbid Obesity, Polysubstance abuse (THC, Opiates, benzodiazepines), admitted with LINCOLN and acute encephalopathy secondary to polysusbstance abuse and LINCOLN She has made improvement clinically on IVF and is tolerating orally and ambulatory. She endorsed illegally or illicitly obtaining opiates and nerve pills She is educated extensively on cessation Patient's daughter was at her bedside throughout her admission patient endorsed multiple childhood trauma events leading to her abuse of prescribed medications She wishes to self quit She has been resumed to her home meds, and encouraged to follow up with her PCP within 2-3 days of discharge to initiate therapy and or refer to psychiatrist. Follow up with PCP - Time Spent with Patient Total time spent providing and/or coordinating discharge services: Greater than 30 minutes - Constitutional Vitals: Temp Pulse Resp BP Pulse Ox 98.2 F 80 18 149/85 96 03/18/17 07:05 03/18/17 07:05 03/18/17 07:05 03/18/17 07:05 03/18/17 07:05 General appearance: Present: cooperative, A&O X 3, morbidly obese, pleasant, no acute distress - Head Head exam: Present: atraumatic, normocephalic - Eye Eye exam: Present: PERRL, conjuntiva pink, sclera anicteric Pupils: Present: PERRL - Neck Neck exam general surgery: Present: supple, trachea midline. Absent: lymphadenopathy - Respiratory Respiratory exam: Present: CTAB. Absent: accessory muscle use, rales, rhonchi, wheezes - Cardiovascular Cardiovascular exam: Present: RRR, +S1, +S2. Absent: diastolic murmur, gallop, rubs, systolic murmur - GI/Abdominal GI/Abdominal exam: Present: normal bowel sounds, soft, no peritoneal signs. Absent: distended, tenderness - Extremities Exam Extremities exam: Present: warm, radial pulses palpable and symmetrical. Absent : calf tenderness, cyanotic, pedal edema - Neurological Exam Neurological exam: Present: alert, CN II-XII intact, oriented X3, no focal deficits. Absent: pronater drift, facial droop, speech deficit - Skin Skin exam: Present: dry, intact - VTE Documentation of Mechanical Device: Intermittent pneumatic compression device
[2017-03-18 11:07] VITALS: BP 171/94
[2017-03-18] MEDS ORDERED: FLUARIX QUAD 2017-18 36MOS UP/PF 0.5 ML SYRINGE IM ONE (12:13)
[2017-03-18] MEDS ORDERED: Insulin LISPRO 300 UNITS/3 ML VIAL SQ SCH (21:00)
[2017-03-20 08:12] LABS: Complement Component 3 153 mg/dL (88-201); Complement Component 4 42 mg/dL (10-40)
[2017-03-20 08:23] LABS: ANA IgG by ELISA NONE DETECTED (None Detected)
[2017-03-21 14:06] LABS: Myeloperoxidase Ab 0 AU/mL (0-19); Serine Protease-3 Antibody 0 AU/mL (0-19)
== END 2017-03-18 14:22 | disposition home or self-care (01) | DRG 469 ==
LOC: 2ANU
PROVIDERS: ADMIT Pediatrics; ATTEND Internal Medicine

== ENCOUNTER 2017-06-26 09:16 | Inpatient (IN) ==
--- NOTE | 2017-06-25 22:43 | Discharge Summary ---
<Kelsy Felipe E - Last Filed: 06/25/17 22:46> Date of Encounter: 06/25/17 - Discharge Diagnosis (1) Osteoarthritis of right hip Priority: Primary Status: Chronic Qualifiers: Osteoarthritis type: unspecified Qualified Code(s): M16.11 - Unilateral primary osteoarthritis, right hip (2) Status post right hip replacement Priority: Primary Status: Acute (3) Seizure disorder Priority: Secondary Status: Chronic (4) HTN (hypertension) Priority: Secondary Status: Chronic Qualifiers: Hypertension type: unspecified Qualified Code(s): I10 - Essential (primary ) hypertension (5) Diabetes mellitus Priority: Secondary Status: Chronic Qualifiers: Diabetes mellitus type: type 2 Diabetes mellitus complication status: with unspecified complications Diabetes mellitus skilled nursing insulin use: without terminal operations manager use Qualified Code(s): E11.8 - Type 2 diabetes mellitus with unspecified complications (6) GERD (gastroesophageal reflux disease) Priority: Secondary Status: Chronic Qualifiers: Esophagitis presence: esophagitis presence not specified Qualified Code(s) : K21.9 - Gastro-esophageal reflux disease without esophagitis (7) Pseudotumor cerebri Priority: Secondary Status: Chronic (8) Obesity Priority: Secondary Status: Chronic Qualifiers: Obesity type: unspecified obesity type Obesity classification: unspecified obesity classification Serious obesity comorbidity presence: unspecified whether serious comorbidity present Qualified Code(s): E66.9 - Obesity, unspecified - Discharge Medications Home Medications: Gabapentin [Neurontin] 800 mg PO TID 12/26/16 [History] Metoprolol Succinate 200 mg PO DAILY 12/26/16 [History] Omeprazole [PriLOSEC] 40 mg PO DAILY 12/26/16 [History] metFORMIN [Glucophage] 500 mg PO BIDWM 12/26/16 [History] Lisinopril [Zestril] 40 mg PO DAILY 03/16/17 [History] Aspirin Enteric Coated [Aspirin EC] 325 mg PO DAILY 21 Days #21 tablet. [Rx] Cyclobenzaprine [Flexeril] 10 mg PO TID #30 tablet 06/25/17 [Rx] Simvastatin [Zocor] 40 mg PO HS 06/26/17 [History] Allergies/Adverse Reactions: 3 Allergy/AdvReac Type Severity Reaction Status Date / Time No Known Allergies Allergy Verified 06/26/17 07:30 Primary care physician: Lorenzo Snell CNP - Patient Status Disposition: Transfer Inpatient Rehab Fac Condition: Good - Discharge Instructions Follow Up With: Kelsy Felipe PAC [Physician Tire Changer] - 07/04/17 2:15 pm (& also, , July 11, 2017 at 2:45 PM) Camden Elizabeth MD [Partnered Physician] - 07/24/17 5:50 pm Lorenzo Snell CNP [Primary Care Provider] - - Hospital Course Hospital course: Ms. Mendoza is a 56 year old female - Time Spent with Patient Total time spent providing and/or coordinating discharge services: <Camden Elizabeth - Last Filed: 06/28/17 08:44> Date of Encounter: 06/28/17 Time of Encounter: 08:43 - Discharge Diagnosis (1) Type 2 diabetes mellitus Priority: Secondary Status: Chronic Qualifiers: Diabetes mellitus complication status: without complication Diabetes mellitus terminal operations manager insulin use: without terminal operations manager use Qualified Code(s): E11.9 - Type 2 diabetes mellitus without complications (2) Morbid obesity with BMI of 40.0-44.9, adult Priority: Secondary Status: Chronic (3) TIA (transient ischemic attack) Priority: Secondary Status: Suspected Qualifiers: Transient cerebral ischemia type: unspecified Qualified Code(s): G45.9 - Transient cerebral ischemic attack, unspecified (4) Chronic pain Priority: Secondary Status: Chronic Qualifiers: Chronic pain type: other chronic pain Qualified Code(s): G89.29 - Other chronic pain (5) Polysubstance abuse Priority: Secondary Status: Chronic (6) Osteoarthritis of right hip Priority: Primary Status: Chronic Qualifiers: Osteoarthritis type: unspecified Qualified Code(s): M16.11 - Unilateral primary osteoarthritis, right hip (7) Status post right hip replacement Priority: Primary Status: Acute (8) Seizure disorder Priority: Secondary Status: Chronic (9) HTN (hypertension) Priority: Secondary Status: Chronic Qualifiers: Hypertension type: unspecified Qualified Code(s): I10 - Essential (primary ) hypertension (10) Diabetes mellitus Priority: Secondary Status: Chronic Qualifiers: Diabetes mellitus type: type 2 Diabetes mellitus complication status: with unspecified complications Diabetes mellitus skilled nursing insulin use: without skilled nursing use Qualified Code(s): E11.8 - Type 2 diabetes mellitus with unspecified complications (11) GERD (gastroesophageal reflux disease) Priority: Secondary Status: Chronic Qualifiers: Esophagitis presence: esophagitis presence not specified Qualified Code(s) : K21.9 - Gastro-esophageal reflux disease without esophagitis (12) Pseudotumor cerebri Priority: Secondary Status: Chronic (13) Acute blood loss anemia Priority: Primary Status: Acute Primary care physician: Lorenzo Snell CNP - Patient Status Functional capacity at discharge: uses cane/walker Overall status at discharge: patient is progressing back to baseline - Hospital Course Hospital course: Ms. Mendoza is a 56 year old female Status post right total hip replacement. The patient had an uneventful postoperative course. They received antibiotics and physical therapy and were discharged in stable condition. There will follow -up in the office in 2 weeks. - Time Spent with Patient Total time spent providing and/or coordinating discharge services:
--- NOTE | 2017-06-26 08:24 | Physician Discharge Referral ---
ExtendedCare Referral Info Transfer To: [facility] Provider in Charge: Dr Elizabeth - Diagnosis (1) Osteoarthritis of right hip Priority: Primary Status: Chronic (2) Status post right hip replacement Priority: Primary Status: Acute (3) Seizure disorder Priority: Secondary Status: Chronic (4) HTN (hypertension) Priority: Secondary Status: Chronic (5) Diabetes mellitus Priority: Secondary Status: Chronic (6) GERD (gastroesophageal reflux disease) Priority: Secondary Status: Chronic (7) Pseudotumor cerebri Priority: Secondary Status: Chronic (8) Obesity Priority: Secondary Status: Chronic Expected Duration of Placement: less than 30 days Prognosis: Good Aware of Diagnosis: Patient Aware of Prognosis: Patient - Transfer Medications Prescriptions: Aspirin Enteric Coated [Aspirin EC] 325 mg PO DAILY 21 Days #21 tablet.dr Asher Medications: Gabapentin [Neurontin] 800 mg PO TID 12/26/16 [History] Metoprolol Succinate 200 mg PO DAILY 12/26/16 [History] Omeprazole [PriLOSEC] 40 mg PO DAILY 12/26/16 [History] metFORMIN [Glucophage] 500 mg PO BIDWM 12/26/16 [History] Lisinopril [Zestril] 40 mg PO DAILY 03/16/17 [History] Aspirin Enteric Coated [Aspirin EC] 325 mg PO DAILY 21 Days #21 tablet. [Rx] Cyclobenzaprine [Flexeril] 10 mg PO TID #30 tablet 06/25/17 [Rx] Allergies/Adverse Reactions: 3 Allergy/AdvReac Type Severity Reaction Status Date / Time No Known Allergies Allergy Verified 06/26/17 07:30 - Respiratory Orders Smoking Cessation: Smoking cessation has been advised. For more information, call the [place] Tobacco Quit Line at 9-058-BXYE-NOW. - Ancillary Orders May use pressure relief devices daily prn, May go on TIFFANIE w/family/respon alliance party w /meds at nurse discretion PRN, May consult with Dentist, Food Product Inspector, Mail Deliverer PRN - Mobility Orders Chair, Ambulate - Rehabiliation Orders Rehab Potential: Good Rehab Orders: Evaluation for Physical Therapy, Evaluation for Occupational Therapy Other: Total Hip replacement Precautions Apply cold therapy 3-6x/day for 20 minutes at a time. Encourage ambulation throughout the day and incentive spirometer 10x/hour. Elevate affected extremity as tolerated. Brace: Wear hip abduction pillow when laying/sleeping - Treatments Skin tear care topically daily PRN per policy List/Other: Opsite placed. Keep dressing intact until first follow up appointment. If > 50% saturated, notify office, remove dressing and place appropriate dressing back in place. Leave Zipline intact. Opsite dressing is water resistant, not water- proof. OK to shower, but do not get dressing wet. - Diet Orders Regular CERTIFICATION: I certify that the transfer of the above named patient to an Extended Care Facility is necessary for the continuing treatment of the diagnosis listed. The above information is true and accurate reflection of patient's current condition. Confidential - Redisclosure prohibited without a patient's written consent.
[2017-06-26] MEDS ORDERED: Vancomycin 1,750 MG in D5% in Water 500 ML IVPB ONE (10:17)
[2017-06-26] MEDS ORDERED: Ringers Solution, Lactated 1,000 ML IVC SCH ×2 (10:30→17:03)
[2017-06-26] MEDS ORDERED: Famotidine 20 MG/2 ML VIAL IVP ONE (11:50)
[2017-06-26] MEDS ORDERED: Pregabalin 75 MG CAPSULE PO ONE (11:50)
--- NOTE | 2017-06-26 12:43 | History & Physical Report ---
Date of Encounter: 06/26/17 Time of Encounter: 12:43 24 Hour HP Update - Instructions Instructions: If the History and Physical is less than 30 days old and was completed prior to A.M. admission and or procedure and has NOT been updated on calendar day of procedure please complete this update prior to performing procedure. - Update Patient reports changes in Medical Condition: No Changes in examination, assessment, or condition: No Changes in Medication: No Preop tests/diagnostics Reviewed: Yes Surgery Remains Indicated: Yes Consent for Planned Operative Procedure(s) Verified: Yes - Pre-Operative Checklist Preoperative Checklist Indicated: No Prophylactic Antibiotic Ordered: Yes Is VTE Prophylaxis Indicated?: Yes
[2017-06-26] MEDS ORDERED: Ondansetron 4 MG/2 ML VIAL ONE (12:49)
[2017-06-26] MEDS ORDERED: Lidocaine -MPF 2% 2 ML VIAL ONE (12:49)
[2017-06-26] MEDS ORDERED: *HR* Midazolam HCl 2 MG/2 ML VIAL ONE (12:50)
--- NOTE | 2017-06-26 13:14 | Anesthesia Evaluation PreOp ---
Date of Encounter: 06/26/17 Time of Encounter: 13:10 - Past History Planned Operation: Rt THR Cardiac History: HTN, Hyperlipidemia Pulmonary History: Denies Any Significant HX CUPOLA PATCHER History: Seizures Other Medical History: Diabetes Type II, GERD, Other (IBS, Morbid Obesity) Anesthesia History: No Prior Anesthetic Complications : No Alcohol Use: none Drug use: none Medications and Allergies Gabapentin [Neurontin] 800 mg PO TID 12/26/16 [History] Metoprolol Succinate 200 mg PO DAILY 12/26/16 [History] Omeprazole [PriLOSEC] 40 mg PO DAILY 12/26/16 [History] metFORMIN [Glucophage] 500 mg PO BIDWM 12/26/16 [History] Lisinopril [Zestril] 40 mg PO DAILY 03/16/17 [History] Aspirin Enteric Coated [Aspirin EC] 325 mg PO DAILY 21 Days #21 tablet. [Rx] Cyclobenzaprine [Flexeril] 10 mg PO TID #30 tablet 06/25/17 [Rx] Simvastatin [Zocor] 40 mg PO HS 06/26/17 [History] 3 Allergy/AdvReac Type Severity Reaction Status Date / Time No Known Allergies Allergy Verified 06/26/17 07:30 - Meds/Allergy Pre-op Review Medications Reviewed: Yes Allergies Reviewed: Yes Beta Blockers on Current Med List: Yes (Took Lopressor today 0500) Anesthesia Results - Labs Laboratory Tests 06/17/17 06/17/17 14:58 14:58 Hgb 12.2 Hct 36.9 Plt Count 310 Sodium 139 Potassium 3.7 BUN 13 Creatinine 0.78 - Imaging EKG: report reviewed (SR) Anesthesia Exam O2 Sat Height 1.6 m Height 1.6 m Height 1.6 m Weight 109.769 kg Weight 109.769 kg Weight 109.769 kg O2 Sat by Pulse Oximetry 97 Vital Signs Temp Pulse Resp BP Pulse Ox 98.2 F 69 18 157/96 97 06/26/17 09:39 06/26/17 09:39 06/26/17 09:39 06/26/17 09:39 06/26/17 09:39 Height: 5'2 Weight: 240 lbs NPO (# of Hours): MN Pain Scale: 0 - HEENT Pupil (Motor): Pupils equal, EOMI Mallampati: III Teeth: Missing, Poor dentition Oral Opening: Less than or equal to 3 - CUPOLA PATCHER LOC: Oriented CUPOLA PATCHER Motor: Normal RUE, Normal LUE, Normal RLE, Normal LLE, Normal Face CUPOLA PATCHER Sensory: Normal: RUE, LUE, RLE, LLE, Face - Cardiac Rhythm: Regular Murmur: None JVD: No Carotid Bruit: No - Pulmonary Breath Sounds: bilateral Clear Respiratory Effort: Symmetrical Anesthesia Assess/Plan ASA Score: 3 (HTN MO) Modified Canyon Scale for Level of Consciousness: Cooperative, oriented, and tranquil Anesthetic Plan: General, Regional, MAC Monitoring Plan: Standard Monitors Recovery Plan: PACU (Discussed GA versus SAB and Fascia Iliaca, agrees to proceed)
[2017-06-26] MEDS ORDERED: *HR* Promethazine 25 MG/ML VIAL IVP PRN (14:30)
--- NOTE | 2017-06-26 14:36 | Anesthesia Procedures ---
Date of Encounter: 06/26/17 Time of Encounter: 13:55 Procedures: Anesthesia - Epidural/Spinal Patient ID/Chart reviewed: Yes Patient examined: Yes Supplemental Oxygen Rate (L/min): 2 Site Prep: Aseptic Technique, 0.5% Chlorhexidine/Alcohol Patient position: upright Local Anesthetic: Lidocaine 1% Amount of Local Anesthetic used: 2 Spinal Needle Gauge: 25 Spinal Dose: 2 ml of 0.5% bupivacaine with 200 mcg of duramorph Procedure: for right total hip replacement, robotic performed by andrade everett assisted by sameer thomas crna Vitals + FHT's: vss
--- NOTE | 2017-06-26 15:01 | Orthopedic Operative Note ---
Date of procedure: 06/26/17 Post-op diagnosis: same Procedure: Procedure: Right Total Hip Replacment robotic-assisted Estimated blood loss: 400 cc Hardware: Metal and polyethylene replacement. [place] DM Cup: 54 cup Femoral size 8 stem Head: 8 head with Karissa Procedural Notes: Grade 4 arthritic changes femoral head acetabular socket, procedure performed with robotic assistance. Operative leg 1 mm shorter than nonoperative leg preoperative based on CAT scan Operative procedure: The patient was brought to the operating room and placed on the operating room table. After general anesthesia was administered the patient was placed in the lateral decubitus position with the operative leg up. All pressure points were padded appropriately and the head was stabilized in the neutral position. The operative extremity was prepped and draped in the sterile surgical fashion patient received IV antibiotic prior to skin incision. 3 Steinmann pins were placed in the iliac crest 3 cm proximal to the anterior superior iliac spine this was for the robotic-assisted sensor. This was done through a small 2 cm incision. A standard posterior approach is made to the operative hip, the incision was made through the skin and subcutaneous tissue hemostasis was obtained with Bovie cautery. Using careful sharp dissection the fascia was identified and incised exposing the external rotators. The femoral checkpoint was placed leg length was measured at this time utilizing robotic assistance. The external rotators were released off the greater trochanter and tagged with # 2 FiberWire suture. The capsule was T'd open and the hip was brought into internal rotation. Patient noted to have grade 4 arthritic changes femoral head. The femoral neck cut was made at the appropriate level roughly 15 mm proximal to the lesser trochanter aced on preoperative templating. An anterior capsulotomy was performed for the anterior retractor. Soft tissues removed from the acetabulum. Patient noted to have grade 4 arthritic changes acetabulum. The acetabulum checkpoint was placed confirmed. The acetabulum was then mapped with robotic assistance. Based on the preoperative plan the acetabulum was reamed in one step with a 53 reamer. The 54 acetabulum was impacted with robotic assistance and 40 degrees of abduction and 11 degrees of anteversion. The hip was brought back in to internal rotation and prepared with the boxing trainer followed by the canal finder followed by the reaming process to a size 7/ 8 broaching process in 20 degrees anteversion. It was broached up to the appropriate size 8. Trial reduction revealed leg lengths close to normal. The femoral implant was impacted in place in 20 degrees of anteversion. Trial reduction found the hip to be stable with 8 head and Karissa. The trials were removed and the real implants were impacted in place. The hip was reduced, patient had robotic confirmed leg length of 10 mm longer than the contralateral side. The hip had excellent stability with forward flexion to 90 degrees adduction of 30 degrees and internal rotation of 60 degrees. The hip had no shuck. The hips after 2 minutes with a antibacterial solution. It was irrigated out with 2 L of pulse irrigation. The checkpoints were removed, Steinmann pins were removed. The hip was closed by the PA. The deep tissue was irrigated and closed deep with #1 PDS suture superficially with 0 PDS suture and skin was closed with Dermabond and zip tie. The patient was placed in a sterile dressing and abduction pillow. The patient was extubated and transferred to the recovery room in stable condition. Anesthesia: spinal Surgeon: Camden Elizabeth Was there an assistant women's soccer coach present: No Estimated blood loss (cc): 400 Condition: stable Disposition: PACU
[2017-06-26 16:02] LABS: Hematocrit 33.5 % (35.3-44.9); Hemoglobin 10.7 g/dL (11.5-15.4)
[2017-06-26] MEDS ORDERED: *HR* OxyCODONE/APAP 5/325 TABLET PO PRN (16:12)
[2017-06-26] MEDS ORDERED: Naloxone 0.4 MG/ML INJ IVP PRN ×2 (16:12→17:03)
--- NOTE | 2017-06-26 16:13 | Anesthesia Evaluation Post Op ---
Date of Encounter: 06/26/17 Time of Encounter: 16:00 - Vital Signs Vital Signs: Vital Signs/O2 Sat/Glucose, Most Current Temp Pulse Resp BP Pulse Ox 06/26/17 16:05 63 16 148/96 97 06/26/17 15:55 98.8 F 60 20 145/76 96 06/26/17 15:45 62 16 126/70 98 06/26/17 15:35 63 16 124/73 100 06/26/17 15:25 98.7 F 65 12 130/69 97 06/26/17 13:39 84 18 144/85 98 - Lungs Lungs: Clear Ascult./Percussion - Airway Airway: Non-obstructed - Cardiovascular Regular Rate - Mental Status Mental Status: Alert & Oriented, Answers Appropriately - Pain Pain Scale: 0 - Nausea Vomiting Nausea Vomiting: Not Present - Hydration Hydration: Ice chips - Discharge PostOp Status: Transfer Patient to floor
[2017-06-26] MEDS ORDERED: Sennosides 8.6 MG TABLET PO PRN (17:03)
[2017-06-26] MEDS ORDERED: Dextrose Gel 15 GM/37.5 ML TUBE PO PRN ×2 (17:03)
[2017-06-26] MEDS ORDERED: MOM Conc 10 ML UD.LIQ PO PRN (17:03)
[2017-06-26] MEDS ORDERED: Temazepam 15 MG CAPSULE PO PRN (17:03)
[2017-06-26] MEDS ORDERED: Ondansetron 4 MG/2 ML VIAL IVP PRN (17:03)
[2017-06-26] MEDS ORDERED: *HR* Dextrose 50 % in Water (Syg) 50 ML SYRINGE IVP PRN (17:03)
[2017-06-26] MEDS ORDERED: D5% in Water 1,000 ML IVC PRN (17:03)
[2017-06-26] MEDS: CeFAZolin Premix DUPLEX 2,000 MG/50 ML BAG IVPB SCH (17:43)
[2017-06-26] MEDS: *HR* Enoxaparin 30 MG/0.3 ML SYRINGE SQ SCH (17:43)
[2017-06-26] MEDS: *HR* Metformin 500 MG TABLET PO SCH (17:44)
[2017-06-26] MEDS: Gabapentin 400 MG CAPSULE PO SCH ×2 (17:44→20:06)
[2017-06-26] MEDS: Ascorbic Acid 500 MG TABLET PO SCH (17:44)
[2017-06-26] MEDS: Insulin LISPRO 300 UNITS/3 ML VIAL SQ SCH ×2 (17:50→21:49)
[2017-06-26] MEDS ORDERED: *HR* Enoxaparin 30 MG/0.3 ML SYRINGE SQ SCH (18:00)
[2017-06-26] MEDS: traMADol 50 MG TABLET PO PRN (21:48)
[2017-06-27] MEDS: CeFAZolin Premix DUPLEX 2,000 MG/50 ML BAG IVPB SCH (00:59)
[2017-06-27 06:02] LABS: Hematocrit 32.9 % (35.3-44.9); Hemoglobin 10.5 g/dL (11.5-15.4)
[2017-06-27 06:39] LABS: BUN/Creatinine Ratio 17 (6-26); Blood Urea Nitrogen 11 mg/dL (6-20); Calcium 8.5 mg/dL (8.6-10.3); Carbon Dioxide 23 mEq/L (23-29); Chloride 105 mEq/L (98-107); Glucose 122 mg/dL (70-105); Osmolality,Calculated 283 (280-300); Potassium 4.2 mEq/L (3.5-5.1); Sodium 136 mEq/L (136-145); eGFR For African Americans > 60 (> 60); eGFR For Non-African Americans > 60 (> 60)
[2017-06-27] MEDS: *HR* Enoxaparin 30 MG/0.3 ML SYRINGE SQ SCH ×2 (06:45→17:30)
[2017-06-27] MEDS: traMADol 50 MG TABLET PO PRN (06:45)
[2017-06-27] MEDS: Insulin LISPRO 300 UNITS/3 ML VIAL SQ SCH ×4 (08:48→22:41)
[2017-06-27] MEDS: Gabapentin 400 MG CAPSULE PO SCH ×3 (08:49→22:40)
--- NOTE | 2017-06-27 09:30 | Orthopedics Progress Note ---
Date of Encounter: 06/27/17 Time of Encounter: 09:30 - Assessment and Plan (1) Type 2 diabetes mellitus Current Visit: No Status: Chronic Qualifiers: Diabetes mellitus complication status: without complication Diabetes mellitus snf insulin use: without manager long term care use Qualified Code(s): E11.9 - Type 2 diabetes mellitus without complications (2) Morbid obesity with BMI of 40.0-44.9, adult Current Visit: No Status: Chronic (3) TIA (transient ischemic attack) Current Visit: No Status: Suspected Qualifiers: Transient cerebral ischemia type: unspecified Qualified Code(s): G45.9 - Transient cerebral ischemic attack, unspecified (4) Chronic pain Current Visit: No Status: Chronic Qualifiers: Chronic pain type: other chronic pain Qualified Code(s): G89.29 - Other chronic pain (5) Polysubstance abuse Current Visit: No Status: Chronic (6) Osteoarthritis of right hip Current Visit: No Status: Chronic Qualifiers: Osteoarthritis type: unspecified Qualified Code(s): M16.11 - Unilateral primary osteoarthritis, right hip (7) Status post right hip replacement Current Visit: No Status: Acute (8) Seizure disorder Current Visit: No Status: Chronic (9) HTN (hypertension) Current Visit: No Status: Chronic Qualifiers: Hypertension type: unspecified Qualified Code(s): I10 - Essential (primary ) hypertension (10) Diabetes mellitus Current Visit: No Status: Chronic Qualifiers: Diabetes mellitus type: type 2 Diabetes mellitus complication status: with unspecified complications Diabetes mellitus snf insulin use: without snf use Qualified Code(s): E11.8 - Type 2 diabetes mellitus with unspecified complications (11) GERD (gastroesophageal reflux disease) Current Visit: No Status: Chronic Qualifiers: Esophagitis presence: esophagitis presence not specified Qualified Code(s) : K21.9 - Gastro-esophageal reflux disease without esophagitis (12) Pseudotumor cerebri Current Visit: No Status: Chronic Subjective Interval history: Patient was seen this morning doing well without complaints. Afebrile vital signs stable. Operative extremity: Neurovascularly intact Dressing clean dry and intact Calves nontender Assessment and plan: Continue with postoperative care Hematocrit 32 Objective Vital signs: Vital Signs Temp Pulse Resp BP Pulse Ox 06/27/17 08:30 98.5 F 96 18 131/82 98 06/26/17 23:32 98.8 F 96 18 105/52 93 06/26/17 18:50 98.3 F 70 16 104/62 96 06/26/17 17:41 97.2 F L 70 16 111/66 94 06/26/17 17:09 97.3 F L 65 14 117/67 96 06/26/17 16:22 97.4 F L 62 14 105/66 98 06/26/17 16:05 63 16 148/96 97 06/26/17 15:55 98.8 F 60 20 145/76 96 06/26/17 15:45 62 16 126/70 98 06/26/17 15:35 63 16 124/73 100 06/26/17 15:25 98.7 F 65 12 130/69 97 06/26/17 13:39 84 18 144/85 98 06/26/17 09:39 98.2 F 69 18 157/96 97 Intake and Output 06/26/17 06/27/17 06/27/17 23:59 07:59 15:59 Intake Total 50 / 50 50 / 50 Output Total 0 / 0 Balance 50 / 50 50 / 50 Intake: IV Fluids 50 / 50 50 / 50 Ancef Premix DUPLEX 2,000 mg In 50 / 50 50 / 50 50 ml @ 100 mls/hr IVPB Q8H [facility] Rx#:[id number] Oral 0 / 0 Output: Urine 0 / 0 Other: # Voids 1 Blood Glucose* 82 110 - Labs CBC & BMP: 06/27/17 05:49 06/27/17 05:49 Labs: Abnormal lab results Hgb 10.5 g/dL (11.5-15.4) L 06/27/17 05:49 Hct 32.9 % (35.3-44.9) L 06/27/17 05:49 Glucose 122 mg/dL (70-105) H 06/27/17 05:49 Calcium 8.5 mg/dL (8.6-10.3) L 06/27/17 05:49 - VTE Documentation of Mechanical Device: Venous foot pump, device Consult Discharge Plan - Plan Referrals: Kelsy Felipe, PAC [Physician Compounding Scaler] - 07/04/17 2:15 pm (& also, July at 2:45 PM) Camden Elizabeth MD [Partnered Physician] - 07/24/17 5:50 pm Lorenzo Snell CNP [Primary Care Provider] -
[2017-06-27] MEDS ORDERED: *HR* OxyCODONE Immed Rel 5 MG TABLET PO PRN ×3 (09:53→12:48)
[2017-06-27] MEDS: *HR* OxyCODONE Immed Rel 5 MG TABLET PO PRN ×4 (10:00→22:40)
[2017-06-27] MEDS: *HR* Metformin 500 MG TABLET PO SCH ×2 (10:00→17:30)
[2017-06-27] MEDS: Multivit/Ca/Min/Fe/FA 1 TAB TABLET PO SCH (10:01)
[2017-06-27] MEDS: Metoprolol XL (24 HR) Succ 50 MG TAB.ER.24H PO SCH (10:01)
[2017-06-27] MEDS: Lisinopril 20 MG TABLET PO SCH (10:01)
[2017-06-27] MEDS: Ascorbic Acid 500 MG TABLET PO SCH ×2 (10:01→17:30)
--- NOTE | 2017-06-27 18:19 | Event Note ---
Date of Encounter: 06/27/17 Time of Encounter: 12:40 PCR- POD#1 R THR robotic Glenn 06/26/17 PCR - Patient seen at bedside. Pain control: Adequate - however patient noted to be asking for Xanax from nursing staff. Discussed this with patient who states she has been buying it off the street for her "stutter". She also admits to taking pain medication purchased off the street however states that she has not taken any since March "because you don't always know what you are buying. There are crazy people out there.". Patient then asking about pain medication on discharge. She states, "If you give me some I won't have to buy any". Did discuss that we provide limited quanitities and taper down as we expect pain to be improving as healing and therapy occurs. *Discussed with Dr. Elizabeth the above - will plan for limited quantities and vigilance regarding prescribing considering urine drug screening if patient is non-compliant or concern for street use occurs during postoperative period. Not participating in PT. Discussed importance of this to evaluate her needs and how we can best help her upon discharge. Patient verbalized understanding. All questions and concerns addressed. Educated on use of incentive spirometer, ambulation, and hydration. Patient educated on post-operative restrictions and care. Addressed: see above. D/C plan: ECF
[2017-06-28] MEDS: *HR* OxyCODONE Immed Rel 5 MG TABLET PO PRN ×3 (03:33→12:33)
[2017-06-28 03:55] LABS: Hematocrit 29.7 % (35.3-44.9); Hemoglobin 9.8 g/dL (11.5-15.4)
[2017-06-28 04:21] LABS: BUN/Creatinine Ratio 19 (6-26); Blood Urea Nitrogen 13 mg/dL (6-20); Calcium 8.8 mg/dL (8.6-10.3); Carbon Dioxide 25 mEq/L (23-29); Chloride 103 mEq/L (98-107); Glucose 158 mg/dL (70-105); Osmolality,Calculated 283 (280-300); Potassium 3.8 mEq/L (3.5-5.1); Sodium 135 mEq/L (136-145); eGFR For African Americans > 60 (> 60); eGFR For Non-African Americans > 60 (> 60)
[2017-06-28] MEDS: *HR* Enoxaparin 30 MG/0.3 ML SYRINGE SQ SCH (06:49)
--- NOTE | 2017-06-28 08:44 | Orthopedics Progress Note ---
Date of Encounter: 06/28/17 Time of Encounter: 08:44 - Assessment and Plan (1) Type 2 diabetes mellitus Current Visit: No Status: Chronic Qualifiers: Diabetes mellitus complication status: without complication Diabetes mellitus senior living insulin use: without terminologist use Qualified Code(s): E11.9 - Type 2 diabetes mellitus without complications (2) Morbid obesity with BMI of 40.0-44.9, adult Current Visit: No Status: Chronic (3) TIA (transient ischemic attack) Current Visit: No Status: Suspected Qualifiers: Transient cerebral ischemia type: unspecified Qualified Code(s): G45.9 - Transient cerebral ischemic attack, unspecified (4) Chronic pain Current Visit: No Status: Chronic Qualifiers: Chronic pain type: other chronic pain Qualified Code(s): G89.29 - Other chronic pain (5) Polysubstance abuse Current Visit: No Status: Chronic (6) Osteoarthritis of right hip Current Visit: No Status: Chronic Qualifiers: Osteoarthritis type: unspecified Qualified Code(s): M16.11 - Unilateral primary osteoarthritis, right hip (7) Status post right hip replacement Current Visit: No Status: Acute (8) Seizure disorder Current Visit: No Status: Chronic (9) HTN (hypertension) Current Visit: No Status: Chronic Qualifiers: Hypertension type: unspecified Qualified Code(s): I10 - Essential (primary ) hypertension (10) Diabetes mellitus Current Visit: No Status: Chronic Qualifiers: Diabetes mellitus type: type 2 Diabetes mellitus complication status: with unspecified complications Diabetes mellitus senior living insulin use: without senior living use Qualified Code(s): E11.8 - Type 2 diabetes mellitus with unspecified complications (11) GERD (gastroesophageal reflux disease) Current Visit: No Status: Chronic Qualifiers: Esophagitis presence: esophagitis presence not specified Qualified Code(s) : K21.9 - Gastro-esophageal reflux disease without esophagitis (12) Pseudotumor cerebri Current Visit: No Status: Chronic (13) Acute blood loss anemia Current Visit: Yes Status: Acute Subjective Interval history: Patient was seen this morning doing well without complaints. Afebrile vital signs stable. Operative extremity: Neurovascularly intact Dressing clean dry and intact Calves nontender Assessment and plan: Continue with postoperative care hb 9.8 dc today Objective Vital signs: Vital Signs Temp Pulse Resp BP Pulse Ox 06/28/17 06:59 98.5 F 90 18 145/84 97 06/28/17 03:30 98.2 F 89 17 122/73 93 06/27/17 23:17 98.7 F 88 17 127/59 93 06/27/17 20:42 98.8 F 87 16 118/73 97 18 18:09 98.9 F 81 16 117/74 95 06/27/17 14:30 983 F H 79 16 134/73 95 06/27/17 11:39 98 F 87 16 138/76 96 06/27/17 10:00 87 16 138/76 96 Intake and Output 06/27/17 06/28/17 06/28/17 23:59 07:59 15:59 Intake Total 1400 / 1400 Output Total 600 / 600 Balance 800 / 800 Intake: IV Fluids 1000 / 1000 Lactated Ringers 1,000 ML @ 75 1000 / 1000 mls/hr IVC .[id number] Rx#: [id number] Oral 400 / 400 Output: Urine 600 / 600 Other: # Voids 1 Blood Glucose* 144 121 - Labs CBC & BMP: 06/28/17 03:39 06/28/17 03:39 Labs: Abnormal lab results Hgb 9.8 g/dL (11.5-15.4) L 06/28/17 03:39 Hct 29.7 % (35.3-44.9) L 06/28/17 03:39 Sodium 135 mEq/L (136-145) L 06/28/17 03:39 Glucose 158 mg/dL (70-105) H 06/28/17 03:39 POC Glucose 144 (58-89) H 06/27/17 20:45 - VTE Documentation of Mechanical Device: Venous foot pump, device Consult Discharge Plan - Plan Referrals: Kelsy Felipe, PAC [Physician Ice Cream Scooper] - 07/04/17 2:15 pm (& also, July at 2:45 PM) Camden Elizabeth MD [Partnered Physician] - 07/24/17 5:50 pm Lorenzo Snell CNP [Primary Care Provider] -
[2017-06-28] MEDS: Ascorbic Acid 500 MG TABLET PO SCH (09:49)
[2017-06-28] MEDS: Multivit/Ca/Min/Fe/FA 1 TAB TABLET PO SCH (09:49)
[2017-06-28] MEDS: *HR* Metformin 500 MG TABLET PO SCH (09:49)
[2017-06-28] MEDS: Lisinopril 20 MG TABLET PO SCH (09:49)
[2017-06-28] MEDS: Gabapentin 400 MG CAPSULE PO SCH (09:49)
[2017-06-28] MEDS: Insulin LISPRO 300 UNITS/3 ML VIAL SQ SCH ×2 (09:50→12:07)
[2017-06-28] MEDS: traMADol 50 MG TABLET PO PRN (10:05)
[2017-06-28 11:00] VITALS: BP 134/83
[2017-06-28] MEDS: Metoprolol XL (24 HR) Succ 50 MG TAB.ER.24H PO SCH (12:01)
== END 2017-06-28 13:24 | DRG 301 ==
LOC: SAMDAY 09:16 → 3NENU 16:12
PROVIDERS: ADMIT Orthopaedic Surgery; ATTEND Orthopaedic Surgery

== ENCOUNTER 2017-07-12 16:46 | Observation (INO) ==
--- NOTE | 2017-07-12 17:00 | Emergency Department Note ---
Disposition Clinical Impression: Altered mental status Qualifiers: Altered mental status type: unspecified Qualified Code(s): R41.82 - Altered mental status, unspecified Disposition: Admitted As Inpatient Condition: Fair Referrals: Lorenzo Snell CNP [Primary Care Provider] - Forms: ED Satisfaction Letter, Work/School Release Time of Disposition: 19:23 Altered Mental Status HPI - General Chief Complaint: ED General Medical Stated Complaint: Low BP Time Seen by Provider: 07/12/17 16:49 Source: patient, EMS Mode of arrival: ambulatory Limitations: no limitations Nursing Notes Reviewed: Yes Vital Signs Reviewed: Yes - History of Present Illness HPI Narrative: 56-year-old female who is status post right hip replacement on who comes in today from the orthopedic office due to altered mental status she falls asleep difficulty to arouse. Blood pressure is been systolic in the 90s MD complaint: altered mental status Onset (ago): Just MEDICAL TERMINOLOGIST Timing confirmed by: spouse Context: unknown (Hip surgery .) Treatments prior to arrival: other - Related Data Home Medications Medication Instructions Recorded Confirmed Gabapentin [Neurontin] 800 mg PO TID 12/26/16 07/12/17 Metoprolol Succinate 200 mg PO DAILY 12/26/16 07/12/17 Omeprazole [PriLOSEC] 40 mg PO DAILY 12/26/16 07/12/17 metFORMIN [Glucophage] 500 mg PO BIDWM 12/26/16 07/12/17 Lisinopril [Zestril] 40 mg PO DAILY 03/16/17 07/12/17 Simvastatin [Zocor] 40 mg PO HS 06/26/17 07/12/17 Ibuprofen [Motrin] 600 mg PO TID PRN 07/12/17 07/12/17 Previous Rx's Medication Instructions Recorded Aspirin Enteric Coated [Aspirin EC] 325 mg PO DAILY 21 Days #21 06/25/17 tablet. Cyclobenzaprine [Flexeril] 10 mg PO TID #30 tablet 06/25/17 Allergies Allergy/AdvReac Type Severity Reaction Status Date / Time No Known Allergies Allergy Verified 06/26/17 07:30 All systems ED: reviewed and negative except as stated. Constitutional: Denies: fever, chills, weakness, weight change Eyes: Denies: eye pain, eye discharge, vision change ENT ED: Denies: ear pain, throat pain, dental pain, hearing loss, epistaxis, congestion, dysphagia Cardiovascular: Denies: chest pain, palpitations, dyspnea on exertion, edema, syncope Respiratory: Denies: cough, dyspnea, wheezes, hemoptysis, stridor Gastrointestinal: Denies: abdominal pain, nausea, vomiting, diarrhea, constipation, hematemesis, melena, hematochezia Genitourinary: Denies: dysuria, frequency, hematuria, discharge Musculoskeletal: Denies: back pain, neck pain, arthralgia, myalgia Integumentary: Denies: rash, abrasion, lesions Neurological: Reports: confusion. Denies: headache, weakness, numbness, paresthesias, abnormal gait, vertigo Psychiatric: Denies: anxiety, depression, suicidal thoughts, homicidal thoughts , auditory hallucinations, visual hallucinations Endocrine: Reports: fatigue Hematological/Lymphatic: Denies: easy bleeding, easy bruising Allergic/Immunologic: Denies: facial swelling, urticaria Past Medical History - Past Medical History Medical history: Reports: diabetes, fibromyalgia, GERD, hyperlipidemia, hypertension, RA, other Surgical history: Reports: appendectomy, , cholecystectomy, orthopedic , other, other Psychiatric history: Reports: anxiety, depression EVALUATOR TRANSFER STUDENTS history: Reports: no EVALUATOR TRANSFER STUDENTS history - Social History Smoking Status: Never smoker Smokeless Tobacco Status: No Alcohol use: Reports: none Drug use: Reports: none Physical Exam - General Limitations: no limitations General appearance: alert, in no apparent distress - Head Head exam: atraumatic, normocephalic, normal inspection - Eye Eye exam: Present: normal appearance, PERRL, EOMI - ENT ENT exam: normal exam, normal oropharynx, mucous membranes moist - Neck Neck exam: Present: normal inspection, full ROM, trachea midline - Chest Chest inspection: Present: normal inspection, symmetric chest wall rise - Respiratory Respiratory exam: Present: normal lung sounds bilaterally - Cardiovascular Cardiovascular exam: Present: regular rate, normal rhythm, normal heart sounds - Abdominal Exam Abdominal exam: Present: soft, Non-Tender. Absent: tenderness, distention, guarding, rebound, rigidity - Extremities Exam Extremities exam: Present: normal inspection, full ROM. Absent: tenderness, pedal edema - Expanded Lower Extremity Exam Neurovascular/Tendon exam: Absent: motor deficit, sensory deficit, tendon deficit Gait: observed and normal - Back Exam Back exam: Present: normal inspection, full ROM. Absent: tenderness - Neurological Exam Neurological exam: Present: alert, oriented X3 - Psychiatric Psychiatric exam: Present: normal affect, normal mood - Skin Skin exam: Present: warm, dry, intact, normal color Course - Reevaluation(s) Reevaluation #1: Phone call from [facility] calling us with their concerns for this patient. the patient the patient apparently was given a prescription for Neurontin R concerned that she may have taken more than she should have. Patient also admits to taking benzodiazepine off the streets for a stuttering problem she has. Time: 17:37 - Consultations Consultation #1: 56-year-old sent here by orthopedics because of altered mental status. Their concern was she may have taken too much Neurontin. Drug screen is positive for opiates, benzos and marijuana. Discussed with , admit. Time: 19:19 Vital Signs Temperature 98.3 F 07/12/17 16:49 Pulse Rate 78 07/12/17 16:49 Respiratory Rate 18 07/12/17 16:49 Blood Pressure 93/58 07/12/17 16:49 O2 Sat by Pulse Oximetry 98 07/12/17 16:49 Temperature 98.3 F 07/12/17 16:49 Pulse Rate 78 07/12/17 16:49 Respiratory Rate 18 07/12/17 16:49 Blood Pressure 93/58 07/12/17 16:49 O2 Sat by Pulse Oximetry 98 07/12/17 16:49 Oxygen Delivery Oxygen Delivery Room Air Altered Mental Status - Lab Data Result diagrams: 07/12/17 17:50 Lab Results 07/12/17 07/12/17 07/12/17 Range/Units 17:50 17:55 17:55 Sodium 137 (136-145) mEq/L Potassium 5.4 H (3.5-5.1) mEq/L Chloride 102 (98-107) mEq/L Carbon Dioxide 24 (23-29) mEq/L BUN 20 (6-20) mg/dL Creatinine 2.15 H (0.60-1.20) mg/dL Est GFR ( Amer) 29 L (> 60) Est GFR (Non-Af Amer) 24 L (> 60) BUN/Creatinine Ratio 9 (6-26) Glucose 114 H (70-105) mg/dL Calculated Osmolality 287 (280-300) Calcium 9.2 (8.6-10.3) mg/dL Total Bilirubin 0.2 L (0.3-1.0) mg/dL Direct Bilirubin 0.1 (0.0-0.2) mg/dL Indirect Bilirubin 0.1 (0.0-1.2) mg/dL AST 17 (13-39) Units/L ALT 11 (7-52) Units/L Alkaline Phosphatase 105 H (34-104) Units/L Troponin I < 0.03 (< 0.04) ng/mL Serum Total Protein 6.9 (6.4-8.9) g/dL Albumin 3.9 (3.5-5.7) g/dL Globulin 3.0 (2.4-3.5) g/dL Albumin/Globulin Ratio 1.3 (1.1-2.2) Urine Color Yellow (Yellow) Urine Clarity Cloudy A (Clear) Urine pH 5.0 (5.0-8.0) pH Units Ur Specific [place] 1.026 H (1.010-1.025) Urine Protein Negative (Neg-Trace) mg/dL Urine Glucose (UA) Normal (Normal) mg/dL Urine Ketones Negative (Negative) mg/dL Urine Blood Negative (Negative) Urine Nitrite Negative (Negative) Urine Bilirubin Negative (Negative) Urine Urobilinogen Normal (Normal) mg/dL Ur Leukocyte Esterase Small H (Negative) Urine Microscopic RBC 3-5 H (0-3) per hpf Urine Microscopic WBC 5-15 H (0-3) per hpf Ur Squamous Epith Cells Many H (None-Few) per lpf Urine Bacteria None Seen (None-Few) per hpf Hyaline Casts Moderate H (None-Few) per lpf Ur Culture Indicated? NO. (NO) Urine Opiates Screen Positive H (Mptpys=634) ng/mL Ur Barbiturates Screen Negative (Ttevvl=379) ng/mL Ur Phencyclidine Scrn Negative (Cutoff=25) ng/mL Ur Amphetamines Screen Negative (Uwwote=5742) ng/mL U Benzodiazepines Scrn Positive H (Yoxnfs=648) ng/mL Urine Cocaine Screen Negative (Cutoff= 300) ng/mL U Marijuana (THC) Screen Positive H (Cutoff = 50) ng/mL Ethyl Alcohol < 10 (0-10) mg/dL Specimen Rejected 07/12/17 Range/Units 18:36 Sodium (136-145) mEq/L Potassium (3.5-5.1) mEq/L Chloride (98-107) mEq/L Carbon Dioxide (23-29) mEq/L BUN (6-20) mg/dL Creatinine (0.60-1.20) mg/dL Est GFR ( Amer) (> 60) Est GFR (Non-Af Amer) (> 60) BUN/Creatinine Ratio (6-26) Glucose (70-105) mg/dL Calculated Osmolality (280-300) Calcium (8.6-10.3) mg/dL Total Bilirubin (0.3-1.0) mg/dL Direct Bilirubin (0.0-0.2) mg/dL Indirect Bilirubin (0.0-1.2) mg/dL AST (13-39) Units/L ALT (7-52) Units/L Alkaline Phosphatase (34-104) Units/L Troponin I (< 0.04) ng/mL Serum Total Protein (6.4-8.9) g/dL Albumin (3.5-5.7) g/dL Globulin (2.4-3.5) g/dL Albumin/Globulin Ratio (1.1-2.2) Urine Color (Yellow) Urine Clarity (Clear) Urine pH (5.0-8.0) pH Units Ur Specific [place] (1.010-1.025) Urine Protein (Neg-Trace) mg/dL Urine Glucose (UA) (Normal) mg/dL Urine Ketones (Negative) mg/dL Urine Blood (Negative) Urine Nitrite (Negative) Urine Bilirubin (Negative) Urine Urobilinogen (Normal) mg/dL Ur Leukocyte Esterase (Negative) Urine Microscopic RBC (0-3) per hpf Urine Microscopic WBC (0-3) per hpf Ur Squamous Epith Cells (None-Few) per lpf Urine Bacteria (None-Few) per hpf Hyaline Casts (None-Few) per lpf Ur Culture Indicated? (NO) Urine Opiates Screen (Oatxzn=583) ng/mL Ur Barbiturates Screen (Fczseu=970) ng/mL Ur Phencyclidine Scrn (Cutoff=25) ng/mL Ur Amphetamines Screen (Cvfeuq=2235) ng/mL U Benzodiazepines Scrn (Ahvnxj=766) ng/mL Urine Cocaine Screen (Cutoff= 300) ng/mL U Marijuana (THC) Screen (Cutoff = 50) ng/mL Ethyl Alcohol (0-10) mg/dL Specimen Rejected Clotted - EKG Data EKG attestation: Yes I reviewed and interpreted this EKG. EKG shows normal: sinus rhythm Rate: normal Rhythm: NSR Interpretation: no acute changes TPA Checklist - LKW: 3-4.5 hrs Add. Warnings/Precautions Patient/family understanding: The patient/family members have been counseled and understood the risk, benefit , and alternatives of treatment.
[2017-07-12] MEDS ORDERED: Naloxone 0.4 MG/ML INJ IVP ONE (17:37)
[2017-07-12 18:14] LABS: Bilirubin,Urine Negative (Negative); Blood,Urine Negative (Negative); Clarity,Urine Cloudy (Clear); Color,Urine Yellow (Yellow); Glucose,Urine (UA) Normal (Normal); Ketones,Urine Negative (Negative); Leukocyte Esterase,Urine Small (Negative); Nitrite,Urine Negative (Negative); Protein,Urine Negative (Neg-Trace); Specific Gravity,Urine 1.026 (1.010-1.025); Urobilinogen,Urine Normal (Normal)
[2017-07-12 18:18] LABS: Bacteria,Urine None Seen per hpf (None-Few); Squamous Epithelial Cell,Urine Many per lpf (None-Few)
[2017-07-12 18:19] LABS: Amphetamine Screen,Urine Negative ng/mL (Cutoff=1000); Barbiturate Screen,Urine Negative ng/mL (Cutoff=200); Benzodiazepines Screen,Urine Positive ng/mL (Cutoff=200); Cannabinoid Screen,Urine Positive ng/mL (Cutoff = 50); Cocaine Screen,Urine Negative ng/mL (Cutoff= 300); Opiate Screen,Urine Positive ng/mL (Cutoff=300); Phencyclidine Screen,Urine Negative ng/mL (Cutoff=25)
[2017-07-12 18:29] LABS: Troponin I < 0.03 ng/mL (< 0.04)
[2017-07-12 18:32] LABS: Alanine Aminotransferase 11 Units/L (7-52); Albumin 3.9 g/dL (3.5-5.7); Albumin/Globulin Ratio 1.3 (1.1-2.2); Alkaline Phosphatase 105 Units/L (34-104); Aspartate Amino Transferase 17 Units/L (13-39); BUN/Creatinine Ratio 9 (6-26); Bilirubin,Direct 0.1 mg/dL (0.0-0.2); Bilirubin,Indirect 0.1 mg/dL (0.0-1.2); Bilirubin,Total 0.2 mg/dL (0.3-1.0); Blood Urea Nitrogen 20 mg/dL (6-20); Calcium 9.2 mg/dL (8.6-10.3); Carbon Dioxide 24 mEq/L (23-29); Chloride 102 mEq/L (98-107); Glucose 114 mg/dL (70-105); Osmolality,Calculated 287 (280-300); Potassium 5.4 mEq/L (3.5-5.1); Sodium 137 mEq/L (136-145); Total Protein 6.9 g/dL (6.4-8.9); eGFR For African Americans 29 (> 60); eGFR For Non-African Americans 24 (> 60)
[2017-07-12] MEDS ORDERED: 0.9 % Sodium Chloride 1,000 ML IVC ONE (18:41)
[2017-07-12 18:58] LABS: Hyaline Casts,Urine Moderate per lpf (None-Few)
[2017-07-12 19:09] LABS: Ethanol < 10 mg/dL (0-10)
[2017-07-12 19:14] LABS: Basophils # 0.1 K/mcL (0.0-0.2); Basophils % 0.4 %; Eosinophils # 1.3 K/mcL (0.0-0.6); Eosinophils % 7.3 %; Hematocrit 29.8 % (35.3-44.9); Hemoglobin 9.1 g/dL (11.5-15.4); Lymphocytes # 3.6 K/mcL (0.6-4.6); Lymphocytes % 21.2 %; Mean Corpuscular HGB Conc 30.5 g/dL (31.6-35.5); Mean Corpuscular Hemoglobin 29.5 pg (28.0-33.3); Mean Corpuscular Volume 96.8 fL (83.0-100.0); Mean Platelet Volume 9.2 fL (9.4-12.4); Monocytes # 1.1 K/mcL (0.0-1.3); Monocytes % 6.7 %; Neutrophils # 10.9 K/mcL (1.6-8.9); Platelet Count 378 K/mcL (140-400); Red Blood Count 3.08 M/mcL (3.82-4.97); Red Cell Distribution Width 13.9 % (11.5-14.5); Segmented Neutrophils % 63.4 %
[2017-07-12 19:35] LABS: Prothrombin Time 10.4 Seconds (9.4-12.1)
[2017-07-12 19:38] LABS: Activated Partial Thrombo Time 27.6 Seconds (26.0-36.0)
[2017-07-12] MEDS ORDERED: *HR* HYDROcodone/Acet 5/325 mg TABLET PO PRN (21:04)
[2017-07-12] MEDS ORDERED: Naloxone 0.4 MG/ML INJ IVP PRN (21:04)
[2017-07-12] MEDS ORDERED: *HR* OxyCODONE Immed Rel 5 MG TABLET PO PRN (21:04)
[2017-07-12] MEDS ORDERED: *HR* Dextrose 50 % in Water (Syg) 50 ML SYRINGE IVP PRN (21:10)
[2017-07-12] MEDS ORDERED: D5% in Water 1,000 ML IVC PRN (21:10)
[2017-07-12] MEDS ORDERED: Dextrose Gel 15 GM/37.5 ML TUBE PO PRN ×2 (21:10)
--- NOTE | 2017-07-12 21:20 | Internal Med History&Physical ---
Date of Encounter: 07/12/17 Time of Encounter: 20:00 Assessment and Plan (1) Morbid obesity with BMI of 40.0-44.9, adult Current visit: Yes Status: Chronic Need for lifestyle modification (2) Pseudotumor cerebri Current visit: No Status: Chronic Patient said she needed periodic LP tappering in [facility]. (3) Acute renal failure Current visit: Yes Status: Acute Pt has elevated Cr to 2.15. Pt took NSAID and gabapentin, lisinopril. Will hold these medications, give IVF and f/u renal function. - If renal function not improve after treatment, consider US renal or nephro consult Qualifiers: Acute renal failure type: unspecified Qualified Code(s): N17.9 - Acute kidney failure, unspecified (4) Status post right hip replacement Current visit: No Status: Acute May consult orthopedic or f/u as outpatient. Cont PT/OT, cont DVT prophylaxis. (5) Diabetes mellitus Current visit: No Status: Chronic Place pt on SSI Qualifiers: Diabetes mellitus type: type 2 Diabetes mellitus complication status: with unspecified complications Diabetes mellitus joint terminal attack controller insulin use: without joint terminal attack controller use Qualified Code(s): E11.8 - Type 2 diabetes mellitus with unspecified complications (6) HTN (hypertension) Current visit: No Status: Chronic Cont home med, hold Lisinipril b/o ARF Qualifiers: Hypertension type: essential hypertension Qualified Code(s): I10 - Essential (primary) hypertension (7) Drug-seeking behavior Current visit: No Status: Suspected Pt was documented as drug seeking behavior in chart. (8) Acute metabolic encephalopathy Current visit: No Status: Resolved Pt has positive opioid in urine screen and respond to naloxone. - Cont closely monitor pt with cardiac and oximitry monitoring. (9) Chronic cough Current visit: Yes Status: Acute Pt c/o chronic nonproductive cough for 2 months, denies hx of smoking. Will order CT chest. Internal Medicine - H&P: HPI Chief complaint: Altered mental status Admitted From: Home Plans for Post Hospital Care: Home History of present illness: Ms. Mendoza is a 56 year old female with a history of diabetes, hypertension, pseudotumor cerebri, fibromyalgia, IBS, osteoarthritis S/P hip replacement on , presented to ER for altered mental status. Patient said she was adjusted discharge from rehabilitation, she take a lot of pain medication because of right hip pain. Patient was found sleepy and difficult to arouse in the orthopedic office. She was given naloxone 0.4 mg in ER and her mental status has significantly improved. When I saw her in ER, she is awake alert oriented 3. Patient also complaining of chronic cough, nonproductive for about 2 months and gradually gets worse. Patient has no fever, no nausea or vomiting. Pt was found elevated creatinine level from baseline in ER. Past Med Surg Social Fam HX - Past Medical History Medical history: diabetes, fibromyalgia, GERD, hyperlipidemia, hypertension, RA , other Psychiatric history: anxiety, depression - Past Surgical History Surgical History: appendectomy, , cholecystectomy, orthopedic, other, other - Social History Smoking Status: Never smoker Smokeless Tobacco Status: No Alcohol use: none Drug use: none - Family History Mother Adopted: No Living Status: Unknown Hx Family Cardiac Disorders: No Hx Family Respiratory Disorders: No Hx Family Cancer: No Hx Family GI Disorders: No Hx Family Endocrine Disorder: No Hx Family Neuromuscular Disorders: No Hx Family Neurologic Disorders: No Hx Family HEENT Disorders: No Hx Family Autoimmune Disorders: No Internal Medicine - H&P: Meds Gabapentin [Neurontin] 800 mg PO TID 12/26/16 [History] Metoprolol Succinate 200 mg PO DAILY 12/26/16 [History] Omeprazole [PriLOSEC] 40 mg PO DAILY 12/26/16 [History] metFORMIN [Glucophage] 500 mg PO BIDWM 12/26/16 [History] Lisinopril [Zestril] 40 mg PO DAILY 03/16/17 [History] Aspirin Enteric Coated [Aspirin EC] 325 mg PO DAILY 21 Days #21 tablet. [Rx] Cyclobenzaprine [Flexeril] 10 mg PO TID #30 tablet 06/25/17 [Rx] Simvastatin [Zocor] 40 mg PO HS 06/26/17 [History] Ibuprofen [Motrin] 600 mg PO TID PRN 07/12/17 [History] 3 Allergy/AdvReac Type Severity Reaction Status Date / Time No Known Allergies Allergy Verified 06/26/17 07:30 All Systems PM: A 10-system review of systems was performed and is negative for pertinent findings except as documented above in the HPI. - Constitutional Vitals: Temp Pulse Resp BP Pulse Ox 98.3 F 84 17 126/63 94 07/12/17 16:49 07/12/17 19:35 07/12/17 20:48 07/12/17 20:48 07/12/17 19:35 General appearance: Present: A&O X 3, morbidly obese, no acute distress, answers questions appropriately - Head Head exam: Present: atraumatic, normocephalic - Eye Eye exam: Present: PERRL, conjuntiva pink, sclera anicteric Pupils: Present: PERRL - Neck Neck exam general surgery: Present: supple, trachea midline. Absent: lymphadenopathy - Respiratory Respiratory exam: Present: CTAB. Absent: accessory muscle use, rales, rhonchi, wheezes - Cardiovascular Cardiovascular exam: Present: RRR, +S1, +S2. Absent: diastolic murmur, gallop, rubs, systolic murmur - GI/Abdominal GI/Abdominal exam: Present: normal bowel sounds, soft, no peritoneal signs. Absent: distended, tenderness - Extremities Exam Extremities exam: Present: warm, radial pulses palpable and symmetrical. Absent : calf tenderness, cyanotic, pedal edema Additional comments: Right hip s/p surgery, with tenderness. - Neurological Exam Neurological exam: Present: CN II-XII intact, oriented X3, no focal deficits. Absent: pronater drift, facial droop, speech deficit - Skin Skin exam: Present: dry, intact Internal Med - H&P Results - Labs CBC & Chem 7: 07/12/17 18:36 07/12/17 17:50
[2017-07-12] MEDS: 0.9 % Sodium Chloride 1,000 ML IVC SCH (22:10)
[2017-07-13] MEDS: Acetaminophen 325 MG TABLET PO PRN ×2 (00:46→06:33)
[2017-07-13 02:29] LABS: Basophils # 0.1 K/mcL (0.0-0.2); Basophils % 0.5 %; Eosinophils # 0.8 K/mcL (0.0-0.6); Eosinophils % 7.1 %; Hematocrit 26.4 % (35.3-44.9); Hemoglobin 8.2 g/dL (11.5-15.4); Immature Granulocytes % 0.6 % (0-4); Lymphocytes # 1.9 K/mcL (0.6-4.6); Lymphocytes % 16.3 %; Mean Corpuscular HGB Conc 31.1 g/dL (31.6-35.5); Mean Corpuscular Hemoglobin 29.4 pg (28.0-33.3); Mean Corpuscular Volume 94.6 fL (83.0-100.0); Mean Platelet Volume 9.3 fL (9.4-12.4); Monocytes # 0.6 K/mcL (0.0-1.3); Monocytes % 5.4 %; Neutrophils # 8.4 K/mcL (1.6-8.9); Platelet Count 309 K/mcL (140-400); Red Blood Count 2.79 M/mcL (3.82-4.97); Red Cell Distribution Width 13.6 % (11.5-14.5); Segmented Neutrophils % 70.1 %
[2017-07-13 02:46] LABS: Calcium 8.7 mg/dL (8.6-10.3); Magnesium 1.8 mg/dL (1.6-2.6); Potassium 4.5 mEq/L (3.5-5.1)
[2017-07-13] MEDS ORDERED: *HR* Heparin 5,000 UNIT/ML VIAL SQ SCH (06:00)
[2017-07-13] MEDS ORDERED: Insulin LISPRO 300 UNITS/3 ML VIAL SQ SCH ×2 (07:30→21:00)
[2017-07-13] MEDS ORDERED: Aspirin Enteric Coated 325 MG Tablet PO SCH (09:00)
[2017-07-13] MEDS ORDERED: Ipratropium/Albuterol Neb 3 ML IH STA (09:06)
[2017-07-13] MEDS: 0.9 % Sodium Chloride 1,000 ML IVC SCH (09:36)
[2017-07-13] MEDS: Metoprolol XL (24 HR) Succ 50 MG TAB.ER.24H PO SCH ×2 (09:37→09:46)
[2017-07-13 09:38] VITALS: BP 123/74
--- NOTE | 2017-07-13 11:15 | Discharge Summary ---
- NOTES TO OUTPATIENT PROVIDER Notes to Outpatient Provider: Check BMP at follow up to ensure resolution of LINCOLN. Orders not resulted at time of discharge: Pending orders 07/14/17 04:00 BMP [Basic Metabolic Panel] AM 0400 Date of Encounter: 07/13/17 Time of Encounter: 11:13 - Discharge Diagnosis (1) Acute metabolic encephalopathy Priority: Primary Status: Resolved (2) Opioid overdose Priority: Secondary Status: Resolved Qualifiers: Encounter type: sequela Injury intent: accidental or unintentional Qualified Code(s): T40.2X1S - Poisoning by other opioids, accidental ( unintentional), sequela (3) LINCOLN (acute kidney injury) Priority: Secondary Status: Acute (4) Morbid obesity with BMI of 40.0-44.9, adult Priority: Secondary Status: Chronic (5) Drug-seeking behavior Priority: Secondary Status: Suspected (6) Status post right hip replacement Priority: Secondary Status: Chronic (7) HTN (hypertension) Priority: Secondary Status: Chronic Qualifiers: Hypertension type: essential hypertension Qualified Code(s): I10 - Essential (primary) hypertension (8) Diabetes mellitus Priority: Secondary Status: Chronic Qualifiers: Diabetes mellitus type: type 2 Diabetes mellitus complication status: with unspecified complications Diabetes mellitus termite renewal inspector insulin use: without termite renewal inspector use Qualified Code(s): E11.8 - Type 2 diabetes mellitus with unspecified complications (9) Pseudotumor cerebri Priority: Secondary Status: Chronic (10) Chronic cough Priority: Secondary Status: Acute Hospital course: Ms. Mendoza is a 56 year old female admitted with AMS/acute metabolic encephalopathy likely secondary to opioid overdose. She was admitted for observation to general medical floor. Opioids were held and narcan ordered PRN. She was started on IVF for LINCOLN. She did not require any further narcan after admission. Her mental status improved. She was somewhat somnolent the next morning, but easily awakened and alert and oriented x 3. She states that she used to live with ex-boyfriend, but now lives alone. She is going to have him pick her up. She wants to go home today. She had elevated creatinine that is almost normalized this morning. She is tolerating PO intake. I advised her to maintain adequate PO hydration at home. She will follow up with PCP in 2-3 days after discharge, and BMP can be checked at that time to ensure resolution of LINCOLN. I also advised her to call her orthopedic surgeon to optimize pain control. I told her to only take pain medication as prescribed from now on. PT /OT worked with patient during this admission. She had recent hip replacement with inpatient rehab. She is not currently getting outpatient rehab. I personally spoke with therapist today who stated that patient is impulsive and not adherent with recommendations at home, including not using her walker. We agreed that this is likely a non-compliance issue instead of a lack of education. Nevertheless, she is a fall risk and I will put in referral for home health PT/OT. She also has a chronic cough that has been going on for some time. CT chest only showed bronchiolitis. I gave her a duoneb treatment today which may have helped. I will discharge with albuterol inhaler PRN, and she can follow up with PCP for further workup of this. Patient has met maximum benefit of this hospitalization and will be discharged home in stable condition. Discharge discussed with: patient, nurse - Time Spent with Patient Total time spent providing and/or coordinating discharge services: Less than 30 minutes - Discharge Medications Prescriptions: Albuterol Sulfate [Albuterol Inhaler] 2 puff IH Q6HR PRN #1 inh PRN Reason: SOB/Cough Home Medications: Gabapentin [Neurontin] 800 mg PO TID 12/26/16 [History] Metoprolol Succinate 200 mg PO DAILY 12/26/16 [History] Omeprazole [PriLOSEC] 40 mg PO DAILY 12/26/16 [History] metFORMIN [Glucophage] 500 mg PO BIDWM 12/26/16 [History] Lisinopril [Zestril] 40 mg PO DAILY 03/16/17 [History] Aspirin Enteric Coated [Aspirin EC] 325 mg PO DAILY 21 Days #21 tablet. [Rx] Cyclobenzaprine [Flexeril] 10 mg PO TID #30 tablet 06/25/17 [Rx] Simvastatin [Zocor] 40 mg PO HS 06/26/17 [History] Ibuprofen [Motrin] 600 mg PO TID PRN 07/12/17 [History] Albuterol Sulfate [Albuterol Inhaler] 2 puff IH Q6HR PRN #1 inh 07/13/17 [Rx] Allergies/Adverse Reactions: 3 Allergy/AdvReac Type Severity Reaction Status Date / Time No Known Allergies Allergy Verified 06/26/17 07:30 Date of admission: 07/12/17 20:08 Primary care physician: Lorenzo Snell CNP Consults: 07/12/17 21:09 Consult to Occupational Therapy [CONS] Routine Comment: Evaluate, develop and implement POC Reason for Consult: S/P hip surgery Consult to Physical Therapy [CONS] Routine Comment: Evaluate, develop and implement POC Reason for Consult: S/P Hip surgery Discharging clinician: Osbaldo Wise Anticipated date of discharge: 07/13/17 - Constitutional Vitals: Temp Pulse Resp BP Pulse Ox 97.8 F 95 14 123/74 94 07/13/17 07:44 07/13/17 09:38 07/13/17 09:49 07/13/17 09:38 07/13/17 09:49 General appearance: Present: A&O X 3, morbidly obese, no acute distress, answers questions appropriately - Respiratory Respiratory exam: Present: CTAB. Absent: accessory muscle use, rales, rhonchi, wheezes Additional comments: Normal WOB - Cardiovascular Cardiovascular exam: Present: RRR, +S1, +S2. Absent: diastolic murmur, gallop, rubs, systolic murmur Additional comments: Trace BLE edema - GI/Abdominal GI/Abdominal exam: Present: normal bowel sounds. Absent: distended, hepatomegaly, mass, soft, splenomegaly, tenderness - Neurological Exam Neurological exam: Present: alert, CN II-XII intact, oriented X3, no focal deficits. Absent: speech deficit - Psychiatric Psychiatric exam: Present: normal affect, normal mood. Absent: anxious, depressed - Skin Skin exam: Present: dry, intact, warm. Absent: cyanosis, rash - Patient Status Disposition: Home Health Service Condition: Good Functional capacity at discharge: uses cane/walker Overall status at discharge: patient is progressing back to baseline - Discharge Instructions Follow Up With: Lorenzo Snell CNP [Primary Care Provider] - Additional Instructions: Follow up with PCP in 2-3 days after discharge. BMP can be rechecked at that time to monitor for resolution of LINCOLN. Home health PT/OT referral placed. - Diet and Activity Activity: ambulate only with your walker, as per physical therapy Diet: regular diet - VTE Documentation of Mechanical Device: Intermittent pneumatic compression device
--- NOTE | 2017-07-13 11:45 | Physician Discharge Referral ---
Home Health/Hosp Referral Info Transfer to: Home Health Provider in Charge Post Discharge: PCP - Diagnosis (1) Acute metabolic encephalopathy Priority: Primary Status: Resolved (2) Opioid overdose Priority: Secondary Status: Resolved (3) [place] (acute kidney injury) Priority: Secondary Status: Acute (4) Morbid obesity with BMI of 40.0-44.9, adult Priority: Secondary Status: Chronic (5) Drug-seeking behavior Priority: Secondary Status: Suspected (6) Status post right hip replacement Priority: Secondary Status: Chronic (7) HTN (hypertension) Priority: Secondary Status: Chronic (8) Diabetes mellitus Priority: Secondary Status: Chronic (9) Pseudotumor cerebri Priority: Secondary Status: Chronic (10) Chronic cough Priority: Secondary Status: Acute - Respiratory Orders Smoking Cessation: Smoking cessation has been advised. For more information, call the [place] Tobacco Quit Line at 7-199-YSFO-NOW. - Diet/Nutrition Diet/Nutrition Orders: Regular, Cardiac - Activity Activity Orders: Walker - Services Needed Following services are medically necessary services: Physical Therapy, Occupational Therapy - Transfer Medications Prescriptions: Albuterol Sulfate [Albuterol Inhaler] 2 puff IH Q6HR PRN #1 inh PRN Reason: SOB/Cough GuaiFENesin/Dextromethorphan [Robitussin/DM] 10 ml PO Q6HR PRN #1 bottle PRN Reason: Cough Home Medications: Gabapentin [Neurontin] 800 mg PO TID 12/26/16 [History] Metoprolol Succinate 200 mg PO DAILY 12/26/16 [History] Omeprazole [PriLOSEC] 40 mg PO DAILY 12/26/16 [History] metFORMIN [Glucophage] 500 mg PO BIDWM 12/26/16 [History] Lisinopril [Zestril] 40 mg PO DAILY 03/16/17 [History] Aspirin Enteric Coated [Aspirin EC] 325 mg PO DAILY 21 Days #21 tablet. [Rx] Cyclobenzaprine [Flexeril] 10 mg PO TID #30 tablet 06/25/17 [Rx] Simvastatin [Zocor] 40 mg PO HS 06/26/17 [History] Ibuprofen [Motrin] 600 mg PO TID PRN 07/12/17 [History] Albuterol Sulfate [Albuterol Inhaler] 2 puff IH Q6HR PRN #1 inh 07/13/17 [Rx] GuaiFENesin/Dextromethorphan [Robitussin/DM] 10 ml PO Q6HR PRN #1 bottle [Rx] Allergies/Adverse Reactions: 3 Allergy/AdvReac Type Severity Reaction Status Date / Time No Known Allergies Allergy Verified 06/26/17 07:30 Certification: Further, I certify that my clinical findings support that this patient is homebound (i.e. absences from home require considerable and taxing effort and are for medical reasons or jew services or infrequently or short duration when for other reasons) because: s/p right hip replacement. Homebound Reason: Post-surgery restriction and or conditions limit ability to leave home Attestation: My signature below is to certify that this patient is under my care and that I, or nurse practitioner, or a physician's cleaner assistant working with me, has a face-to -face encounter with this patient.
--- NOTE | 2017-07-16 08:53 | Electrocardiograph Report ---
[place] [address] Test Date: 2017-07-12 Pat Name: Yara Mendoza Department: 102 Room: [facility] Gender: F Seasonal Package Handler: Amy : [id number] Requested By: Ariel Contreras Order Number: [id number] Reading MD: Adeline Dyson Measurements Intervals Printer Rate: 77 P: 55 MT: 175 QRS: 26 QRSD: 83 T: 56 QT: 386 QTc: 417 Interpretive Statements SINUS RHYTHM Borderline ST elevation inferior leads Borderline ST depression lateral leads Electronically Signed On 07-16-2017 8:51:29 EST by Adeline Dyson
== END 2017-07-13 14:48 | disposition home health service (06) ==
LOC: 3NENU 16:46 → EMEROO 16:46 → 3NENU 21:07
PROVIDERS: ADMIT Pediatrics; ATTEND Family Medicine

== ENCOUNTER 2019-05-07 15:20 | Observation (INO) ==
[2019-05-07] MEDS ORDERED: Isovue-370 500 ML BOTTLE IVP ONE (15:55)
[2019-05-07] MEDS ORDERED: 0.9 % Sodium Chloride 1,000 ML IVC STA ×2 (16:00→17:02)
[2019-05-07] MEDS ORDERED: Ketorolac 15 MG/ML VIAL IVP ONE (16:00)
[2019-05-07] MEDS ORDERED: Ondansetron 4 MG/2 ML VIAL IVP ONE (16:00)
[2019-05-07 16:28] LABS: Basophils # 0.1 K/mcL (0.0-0.2); Basophils % 0.3 %; Eosinophils # 0.1 K/mcL (0.0-0.6); Eosinophils % 0.6 %; Hematocrit 45.9 % (35.3-44.9); Hemoglobin 15.4 g/dL (11.5-15.4); Immature Granulocytes % 0.7 % (0-4); Lymphocytes # 3.3 K/mcL (0.6-4.6); Lymphocytes % 15.6 %; Mean Corpuscular HGB Conc 33.6 g/dL (31.6-35.5); Mean Corpuscular Hemoglobin 28.4 pg (28.0-33.3); Mean Corpuscular Volume 84.7 fL (83.0-100.0); Mean Platelet Volume 9.2 fL (9.4-12.4); Monocytes # 0.9 K/mcL (0.0-1.3); Neutrophils # 16.6 K/mcL (1.6-8.9); Platelet Count 344 K/mcL (140-400); Red Blood Count 5.42 M/mcL (3.82-4.97); Red Cell Distribution Width 14.5 % (11.5-14.5); Segmented Neutrophils % 78.8 %
[2019-05-07 16:54] LABS: Albumin 4.5 g/dL (3.5-5.7); Albumin/Globulin Ratio 1.5 (1.1-2.2); Bilirubin,Direct 0.1 mg/dL (0.0-0.2); Bilirubin,Indirect 0.6 mg/dL (0.0-1.0); Bilirubin,Total 0.7 mg/dL (0.3-1.0); Calcium 10.3 mg/dL (8.6-10.3); Globulin 3.1 g/dL (2.4-3.5); Potassium 3.8 mEq/L (3.5-5.1); Total Protein 7.6 g/dL (6.4-8.9)
[2019-05-07] MEDS ORDERED: 0.9 % Sodium Chloride 1,000 ML IVC ONE (16:58)
[2019-05-07] MEDS ORDERED: *HR* FentaNYL (PF) 100 MCG/2 ML VIAL IVP ONE (18:21)
[2019-05-07] MEDS ORDERED: cefTRIAXone 1,000 MG in Water for inj. (sterile) 10 ML IVP ONE (18:36)
[2019-05-07 20:24] LABS: Bilirubin,Urine Moderate (Negative); Blood,Urine Trace-intact (Negative); Clarity,Urine Clear (Clear); Color,Urine Yellow (Yellow); Glucose,Urine (UA) 100 mg/dL (Normal); Ketones,Urine Trace mg/dL (Negative); Leukocyte Esterase,Urine Negative (Negative); Nitrite,Urine Negative (Negative); PH,Urine 5.5 pH Units (5.0-8.0); Protein,Urine >=300 mg/dL (Neg-Trace); Specific Gravity,Urine >= 1.030 (1.010-1.025); Urobilinogen,Urine Normal (Normal)
[2019-05-07 20:26] LABS: Hyaline Casts,Urine Few per lpf (None-Few)
[2019-05-07 20:27] LABS: Amorphous Sediment,Urine Few per hpf (Few); Bacteria,Urine Moderate per hpf (None-Few); Mucus,Urine Few per lpf (Few); Squamous Epithelial Cell,Urine Few per lpf (None-Few)
[2019-05-07 20:28] LABS: RBC,Urine 0-3 per hpf (0-3); Renal Epithelial Cells,Urine Few per hpf (None-Few); Transitional Epi Cells,Urine Few per hpf (None-Few); WBC,Urine 0-3 per hpf (0-3)
[2019-05-08] MEDS ORDERED: Naloxone 0.4 MG/ML INJ IVP PRN (05:19)
[2019-05-08] MEDS ORDERED: Ondansetron 4 MG/2 ML VIAL IVP PRN (05:19)
[2019-05-08] MEDS ORDERED: *HR* Dextrose 50 % in Water (Syg) 50 ML SYRINGE IVP PRN (05:22)
[2019-05-08] MEDS ORDERED: Dextrose Gel 15 GM/37.5 ML TUBE PO PRN ×2 (05:22)
[2019-05-08] MEDS ORDERED: D5% in Water 1,000 ML IVC PRN (05:22)
[2019-05-08] MEDS ORDERED: Acetaminophen 325 MG TABLET PO PRN (06:17)
[2019-05-08] MEDS: 0.9 % Sodium Chloride 1,000 ML IVC SCH ×2 (06:22→18:38)
[2019-05-08 06:37] LABS: Calcium 8.6 mg/dL (8.6-10.3); Potassium 3.4 mEq/L (3.5-5.1)
[2019-05-08 06:41] LABS: Hematocrit 37.9 % (35.3-44.9); Mean Corpuscular HGB Conc 31.9 g/dL (31.6-35.5); Mean Corpuscular Hemoglobin 28.7 pg (28.0-33.3); Mean Platelet Volume 9.8 fL (9.4-12.4); Platelet Count 213 K/mcL (140-400); Red Blood Count 4.21 M/mcL (3.82-4.97); Red Cell Distribution Width 14.4 % (11.5-14.5); White Blood Count 12.5 K/mcL (4.3-11.1)
[2019-05-08 06:44] LABS: Hemoglobin 12.1 g/dL (11.5-15.4)
[2019-05-08] MEDS: Insulin LISPRO 300 UNITS/3 ML VIAL SQ SCH ×3 (08:15→16:07)
[2019-05-08] MEDS: *HR* Heparin 5,000 UNIT/ML VIAL SQ SCH (18:37)
[2019-05-08] MEDS ORDERED: Insulin LISPRO 300 UNITS/3 ML VIAL SQ SCH (21:00)
[2019-05-09] MEDS ORDERED: Melatonin 3 MG TABLET PO ONE (02:57)
[2019-05-09 05:18] LABS: Basophils % 0.4 %; Eosinophils # 0.4 K/mcL (0.0-0.6); Eosinophils % 4.2 %; Hematocrit 36.5 % (35.3-44.9); Hemoglobin 12.4 g/dL (11.5-15.4); Immature Granulocytes % 0.8 % (0-4); Lymphocytes # 2.2 K/mcL (0.6-4.6); Mean Corpuscular Hemoglobin 28.8 pg (28.0-33.3); Mean Corpuscular Volume 84.9 fL (83.0-100.0); Mean Platelet Volume 9.6 fL (9.4-12.4); Monocytes # 0.6 K/mcL (0.0-1.3); Monocytes % 6.7 %; Neutrophils # 5.2 K/mcL (1.6-8.9); Platelet Count 245 K/mcL (140-400); Red Cell Distribution Width 14.6 % (11.5-14.5); Segmented Neutrophils % 61.9 %; White Blood Count 8.3 K/mcL (4.3-11.1)
[2019-05-09] MEDS: *HR* Heparin 5,000 UNIT/ML VIAL SQ SCH (05:31)
[2019-05-09 05:39] LABS: BUN/Creatinine Ratio 17 (6-26); Blood Urea Nitrogen 17 mg/dL (8-23); Calcium 8.9 mg/dL (8.6-10.3); Carbon Dioxide 24 mEq/L (23-29); Chloride 105 mEq/L (98-107); Glucose 112 mg/dL (70-105); Osmolality,Calculated 294 (280-300); Sodium 141 mEq/L (136-145); eGFR For African Americans > 60 (> 60); eGFR For Non-African Americans 56 (> 60)
[2019-05-09 07:10] VITALS: BP 148/88
[2019-05-09] MEDS: Insulin LISPRO 300 UNITS/3 ML VIAL SQ SCH (07:52)
[2019-05-09] MEDS ORDERED: Metoprolol XL (24 HR) Succ 50 MG TAB.ER.24H PO SCH (09:00)
== END 2019-05-09 10:40 | disposition home or self-care (01) ==
LOC: EMEROOARM 15:20 → 2ANU 15:20 → SUATTDRO 21:49 → 2ANU 22:18
PROVIDERS: ADMIT Internal Medicine; ATTEND Internal Medicine

== ENCOUNTER 2019-08-25 10:12 | Observation (INO) ==
[2019-08-25] MEDS ORDERED: Naloxone 0.4 MG/ML INJ IVP PRN (12:21)
[2019-08-25] MEDS ORDERED: Ondansetron 4 MG/2 ML VIAL IVP PRN (12:21)
[2019-08-25 13:39] LABS: Bilirubin,Urine Negative (Negative); Blood,Urine Negative (Negative); Clarity,Urine Clear (Clear); Color,Urine Yellow (Yellow); Glucose,Urine (UA) Normal (Normal); Ketones,Urine Negative (Negative); Leukocyte Esterase,Urine Small (Negative); Nitrite,Urine Negative (Negative); Protein,Urine Negative (Neg-Trace); Specific Gravity,Urine > 1.030 (1.010-1.025); Urobilinogen,Urine Normal (Normal)
[2019-08-25 13:40] LABS: Bacteria,Urine None Seen per hpf (None-Few); Hyaline Casts,Urine None Seen per lpf (None-Few); Squamous Epithelial Cell,Urine Many per lpf (None-Few)
[2019-08-25] MEDS ORDERED: *HR* Heparin 5,000 UNIT/ML VIAL IVP PRN ×2 (14:44)
[2019-08-25] MEDS ORDERED: *HR* Heparin 5,000 UNIT/ML VIAL IVP ONE (14:44)
[2019-08-25] MEDS ORDERED: Heparin 25,000 UNIT/250 ML D5W 25,000 UNIT/250 ML IV.SOLN IVC SCH (14:45)
[2019-08-25] MEDS: SUMAtriptan succinate 50 MG TABLET PO PRN ×2 (15:05→18:05)
[2019-08-25] MEDS: Gabapentin 300 MG CAPSULE PO SCH ×2 (15:05→21:46)
[2019-08-25] MEDS: Cefepime HCl 2,000 MG in Water for inj. (sterile) 20 ML IVP SCH ×2 (15:05→22:38)
[2019-08-25] MEDS ORDERED: Furosemide 20 MG/2 ML VIAL IVP ONE (15:40)
[2019-08-25] MEDS ORDERED: Ipratropium/Albuterol Neb 3 ML IH PRN (15:41)
[2019-08-25] MEDS ORDERED: Cefepime HCl 1,000 MG in Water for inj. (sterile) 10 ML IVP SCH (16:00)
[2019-08-25 16:26] LABS: Hematocrit 34.7 % (35.3-44.9); Hemoglobin 10.8 g/dL (11.5-15.4); Mean Corpuscular HGB Conc 31.1 g/dL (31.6-35.5); Mean Corpuscular Volume 83.4 fL (83.0-100.0); Mean Platelet Volume 9.1 fL (9.4-12.4); Platelet Count 312 K/mcL (140-400); Red Blood Count 4.16 M/mcL (3.82-4.97); Red Cell Distribution Width 13.7 % (11.5-14.5); White Blood Count 11.7 K/mcL (4.3-11.1)
[2019-08-25 16:36] LABS: Heparin anti-factor XA UFH < 0.04 IU/mL (0.30-0.70)
[2019-08-25 16:37] LABS: Prothrombin Time 10.9 Seconds (9.4-12.1)
[2019-08-25 16:47] LABS: Lactate Dehydrogenase 181 Units/L (140-271)
[2019-08-25 17:05] LABS: Ferritin 77 ng/mL (10-120)
[2019-08-25] MEDS ORDERED: D5% in Water 1,000 ML IVC PRN (17:56)
[2019-08-25] MEDS ORDERED: *HR* Dextrose 50 % in Water (Syg) 50 ML SYRINGE IVP PRN (17:56)
[2019-08-25] MEDS ORDERED: Dextrose Gel 15 GM/37.5 ML TUBE PO PRN ×2 (17:56)
[2019-08-25] MEDS: Doxycycline 100 MG in 0.9 % Sodium Chloride Mini Bag 100 ML IVPB SCH (18:05)
[2019-08-25] MEDS: Insulin LISPRO 300 UNITS/3 ML VIAL SQ SCH (21:45)
[2019-08-25] MEDS ORDERED: methylPREDNISolone 125 MG/2 ML VIAL IVP ONE (22:10)
[2019-08-26] MEDS: SUMAtriptan succinate 50 MG TABLET PO PRN ×3 (03:58→23:30)
[2019-08-26] MEDS ORDERED: *HR* OxyCODONE/APAP 5/325 TABLET PO ONE (04:43)
[2019-08-26 04:45] LABS: Basophils % 0.1 %; Hematocrit 35.5 % (35.3-44.9); Hemoglobin 11.2 g/dL (11.5-15.4); Immature Granulocytes % 0.6 % (0-4); Lymphocytes # 0.9 K/mcL (0.6-4.6); Lymphocytes % 6.3 %; Mean Corpuscular HGB Conc 31.5 g/dL (31.6-35.5); Mean Corpuscular Hemoglobin 26.4 pg (28.0-33.3); Mean Corpuscular Volume 83.7 fL (83.0-100.0); Monocytes # 0.2 K/mcL (0.0-1.3); Monocytes % 1.2 %; Neutrophils # 12.9 K/mcL (1.6-8.9); Platelet Count 351 K/mcL (140-400); Red Blood Count 4.24 M/mcL (3.82-4.97); Red Cell Distribution Width 13.8 % (11.5-14.5); Segmented Neutrophils % 91.8 %
[2019-08-26 04:54] LABS: INR 1.6; Prothrombin Time 18.2 Seconds (9.4-12.1)
[2019-08-26 05:05] LABS: Alanine Aminotransferase 9 Units/L (7-52); Albumin 3.6 g/dL (3.5-5.7); Albumin/Globulin Ratio 1.2 (1.1-2.2); Alkaline Phosphatase 84 Units/L (34-104); Aspartate Amino Transferase 9 Units/L (13-39); BUN/Creatinine Ratio 20 (6-26); Bilirubin,Total 0.3 mg/dL (0.3-1.0); Blood Urea Nitrogen 17 mg/dL (8-23); Calcium 9.5 mg/dL (8.6-10.3); Carbon Dioxide 23 mEq/L (23-29); Chloride 101 mEq/L (98-107); Chol/HDL Ratio 2.7 (0-4.9); Cholesterol 159 mg/dL (< 200); Globulin 3.1 g/dL (2.4-3.5); Glucose 252 mg/dL (70-105); HDL Cholesterol 58 mg/dL (40-59); LDL Cholesterol,Calculated 79 mg/dL (0-99); Magnesium 1.7 mg/dL (1.6-2.6); Osmolality,Calculated 290 (280-300); Phosphorous 3.9 mg/dL (2.7-4.5); Sodium 135 mEq/L (136-145); Total Protein 6.7 g/dL (6.4-8.9); Triglycerides 112 mg/dL (< 150); eGFR For African Americans > 60 (> 60); eGFR For Non-African Americans > 60 (> 60)
[2019-08-26] MEDS ORDERED: Doxycycline 100 MG VIAL ONE (05:07)
[2019-08-26] MEDS: Doxycycline 100 MG in 0.9 % Sodium Chloride Mini Bag 100 ML IVPB SCH (05:25)
[2019-08-26] MEDS: Cefepime HCl 2,000 MG in Water for inj. (sterile) 20 ML IVP SCH (08:15)
[2019-08-26] MEDS: lisinopriL 20 MG TABLET PO SCH (08:17)
[2019-08-26] MEDS: Gabapentin 300 MG CAPSULE PO SCH ×3 (08:17→20:46)
[2019-08-26] MEDS: Metoprolol XL (24 HR) Succ 50 MG TAB.ER.24H PO SCH (08:17)
[2019-08-26] MEDS: Insulin LISPRO 300 UNITS/3 ML VIAL SQ SCH ×4 (08:28→20:46)
[2019-08-26] MEDS: *HR* Enoxaparin 100 MG/ML SYRINGE SQ SCH ×2 (08:58→17:03)
[2019-08-26] MEDS: hydrOXYzine pamoate 25 MG CAPSULE PO PRN (12:11)
[2019-08-26] MEDS: *HR* OxyCODONE/APAP 5/325 TABLET PO PRN ×2 (13:59→21:57)
[2019-08-26] MEDS: cefTRIAXone 1,000 MG in Water for inj. (sterile) 10 ML IVP SCH (17:02)
[2019-08-26] MEDS: Doxycycline 100 MG CAPSULE PO SCH (17:13)
[2019-08-26] MEDS ORDERED: Morphine Sulfate 2 MG/ML SYRINGE IVP ONE (23:07)
[2019-08-27 01:00] LABS: Basophils % 0.2 %; Eosinophils % 0.1 %; Hematocrit 34.1 % (35.3-44.9); Hemoglobin 10.6 g/dL (11.5-15.4); Immature Granulocytes % 0.8 % (0-4); Lymphocytes # 2.8 K/mcL (0.6-4.6); Lymphocytes % 16.3 %; Mean Corpuscular HGB Conc 31.1 g/dL (31.6-35.5); Mean Corpuscular Hemoglobin 26.5 pg (28.0-33.3); Mean Corpuscular Volume 85.3 fL (83.0-100.0); Monocytes # 0.9 K/mcL (0.0-1.3); Monocytes % 5.2 %; Neutrophils # 13.2 K/mcL (1.6-8.9); Platelet Count 347 K/mcL (140-400); Red Cell Distribution Width 13.8 % (11.5-14.5); Segmented Neutrophils % 77.4 %; White Blood Count 17.1 K/mcL (4.3-11.1)
[2019-08-27 01:20] LABS: BUN/Creatinine Ratio 21 (6-26); Blood Urea Nitrogen 24 mg/dL (8-23); Calcium 9.5 mg/dL (8.6-10.3); Carbon Dioxide 25 mEq/L (23-29); Chloride 104 mEq/L (98-107); Glucose 124 mg/dL (70-105); Osmolality,Calculated 293 (280-300); Potassium 3.9 mEq/L (3.5-5.1); Sodium 139 mEq/L (136-145); eGFR For African Americans > 60 (> 60); eGFR For Non-African Americans 50 (> 60)
[2019-08-27] MEDS: Doxycycline 100 MG CAPSULE PO SCH ×2 (06:14→17:49)
[2019-08-27] MEDS: *HR* OxyCODONE/APAP 5/325 TABLET PO PRN ×3 (06:20→22:26)
[2019-08-27] MEDS: *HR* Enoxaparin 100 MG/ML SYRINGE SQ SCH (06:20)
[2019-08-27] MEDS: Gabapentin 300 MG CAPSULE PO SCH ×3 (08:09→20:29)
[2019-08-27] MEDS: lisinopriL 20 MG TABLET PO SCH (08:09)
[2019-08-27] MEDS: Metoprolol XL (24 HR) Succ 50 MG TAB.ER.24H PO SCH (08:09)
[2019-08-27] MEDS: Insulin LISPRO 300 UNITS/3 ML VIAL SQ SCH ×4 (08:12→20:30)
[2019-08-27] MEDS: Aspirin Enteric Coated 81 MG Tablet PO SCH (10:04)
[2019-08-27] MEDS: cefTRIAXone 1,000 MG in Water for inj. (sterile) 10 ML IVP SCH (16:39)
[2019-08-27] MEDS: SUMAtriptan succinate 50 MG TABLET PO PRN (22:38)
[2019-08-28] MEDS ORDERED: *HR* LORazepam 0.5 MG TABLET PO ONE (01:53)
[2019-08-28] MEDS ORDERED: *HR* Enoxaparin 40 MG/0.4 ML SYRINGE SQ SCH (06:00)
[2019-08-28] MEDS: Doxycycline 100 MG CAPSULE PO SCH (06:01)
[2019-08-28] MEDS: *HR* OxyCODONE/APAP 5/325 TABLET PO PRN (06:01)
[2019-08-28] MEDS: Insulin LISPRO 300 UNITS/3 ML VIAL SQ SCH ×2 (07:43→11:34)
[2019-08-28] MEDS: Gabapentin 300 MG CAPSULE PO SCH (08:34)
[2019-08-28] MEDS: Metoprolol XL (24 HR) Succ 50 MG TAB.ER.24H PO SCH (08:34)
[2019-08-28] MEDS: Aspirin Enteric Coated 81 MG Tablet PO SCH (08:34)
[2019-08-28] MEDS: lisinopriL 20 MG TABLET PO SCH (08:35)
[2019-08-28 11:07] VITALS: BP 146/88
[2019-08-28] MEDS: SUMAtriptan succinate 50 MG TABLET PO PRN (12:00)
[2019-08-28] MEDS: hydrOXYzine pamoate 25 MG CAPSULE PO PRN (12:00)
== END 2019-08-28 13:04 | disposition home or self-care (01) ==
LOC: 2NENU → SUATTDRO 15:34 → 2ANU 08-26 19:59
PROVIDERS: ADMIT Student in an Organized Health Care Education/Training Program; ATTEND Internal Medicine

== ENCOUNTER 2020-04-10 01:55 | Observation (INO) ==
[2020-04-10] MEDS ORDERED: Naloxone 0.4 MG/ML INJ IVP PRN (03:42)
[2020-04-10 04:16] LABS: Hematocrit 28.3 % (35.3-44.9); Mean Corpuscular HGB Conc 31.8 g/dL (31.6-35.5); Mean Corpuscular Hemoglobin 28.3 pg (28.0-33.3); Red Blood Count 3.18 M/mcL (3.82-4.97); Red Cell Distribution Width 15.5 % (11.5-14.5); White Blood Count 17.4 K/mcL (4.3-11.1)
[2020-04-10 04:17] LABS: Basophils % 0.2 %; Eosinophils # 0.1 K/mcL (0.0-0.6); Eosinophils % 0.4 %; Immature Granulocytes % 0.9 % (0-4); Lymphocytes # 2.4 K/mcL (0.6-4.6); Lymphocytes % 13.6 %; Mean Platelet Volume 9.5 fL (9.4-12.4); Monocytes % 5.9 %; Neutrophils # 13.8 K/mcL (1.6-8.9); Platelet Count 330 K/mcL (140-400)
[2020-04-10 04:27] LABS: INR 1.1
[2020-04-10 04:32] LABS: Calcium 7.7 mg/dL (8.6-10.3)
[2020-04-10] MEDS: Pantoprazole 40 MG VIAL IVP SCH ×2 (05:42→16:13)
[2020-04-10] MEDS: cefTRIAXone 1,000 MG in Water for inj. (sterile) 10 ML IVP SCH (07:53)
[2020-04-10] MEDS ORDERED: Acetaminophen 325 MG TABLET PO PRN (08:12)
[2020-04-10] MEDS: *HR* HYDROcodone/Acet 5/325 mg TABLET PO PRN ×2 (08:51→18:17)
[2020-04-10] MEDS: 0.9 % Sodium Chloride 1,000 ML IVC SCH ×2 (08:52→21:23)
[2020-04-10] MEDS ORDERED: SUMAtriptan succinate 50 MG TABLET PO PRN (10:27)
[2020-04-10] MEDS: *HR* OxyCODONE/APAP 10/325 TABLET PO PRN ×2 (13:46→21:10)
[2020-04-10] MEDS ORDERED: Melatonin 3 MG TABLET PO SCH (23:00)
[2020-04-11] MEDS: *HR* HYDROcodone/Acet 5/325 mg TABLET PO PRN (00:51)
[2020-04-11 03:00] LABS: Basophils # 0.1 K/mcL (0.0-0.2); Basophils % 0.6 %; Eosinophils # 0.5 K/mcL (0.0-0.6); Eosinophils % 4.6 %; Hematocrit 29.5 % (35.3-44.9); Hemoglobin 9.3 g/dL (11.5-15.4); Immature Granulocytes % 0.7 % (0-4); Lymphocytes % 20.2 %; Mean Corpuscular HGB Conc 31.5 g/dL (31.6-35.5); Mean Corpuscular Hemoglobin 28.3 pg (28.0-33.3); Mean Corpuscular Volume 89.7 fL (83.0-100.0); Mean Platelet Volume 10.1 fL (9.4-12.4); Monocytes # 0.7 K/mcL (0.0-1.3); Monocytes % 6.8 %; Neutrophils # 6.6 K/mcL (1.6-8.9); Platelet Count 295 K/mcL (140-400); Red Blood Count 3.29 M/mcL (3.82-4.97); Red Cell Distribution Width 15.7 % (11.5-14.5); Segmented Neutrophils % 67.1 %; White Blood Count 9.8 K/mcL (4.3-11.1)
[2020-04-11 03:17] LABS: BUN/Creatinine Ratio 17 (6-26); Blood Urea Nitrogen 18 mg/dL (8-23); Calcium 7.9 mg/dL (8.6-10.3); Carbon Dioxide 24 mEq/L (23-29); Chloride 105 mEq/L (98-107); Glucose 141 mg/dL (70-105); Osmolality,Calculated 292 (280-300); Sodium 139 mEq/L (136-145); eGFR For African Americans > 60 (> 60); eGFR For Non-African Americans 54 (> 60)
[2020-04-11] MEDS: Pantoprazole 40 MG VIAL IVP SCH (05:13)
[2020-04-11] MEDS: *HR* OxyCODONE/APAP 10/325 TABLET PO PRN (08:46)
[2020-04-11] MEDS: cefTRIAXone 1,000 MG in Water for inj. (sterile) 10 ML IVP SCH (08:46)
[2020-04-11] MEDS ORDERED: allopurinoL 100 MG TABLET PO SCH (09:00)
[2020-04-11] MEDS ORDERED: hydroCHLOROthiazide 25 MG TABLET PO SCH (09:00)
[2020-04-11 11:23] VITALS: BP 128/80
== END 2020-04-11 13:36 | disposition home or self-care (01) ==
LOC: 2ANU
PROVIDERS: ADMIT Internal Medicine; ATTEND Internal Medicine

== ENCOUNTER 2021-06-13 16:15 | Inpatient (IN) ==
[2021-06-13] MEDS ORDERED: Acetaminophen 325 MG TABLET PO PRN (19:49)
[2021-06-13] MEDS ORDERED: Ondansetron 4 MG/2 ML VIAL IVP PRN (19:49)
[2021-06-13] MEDS ORDERED: Naloxone 0.4 MG/ML INJ IVP PRN (19:49)
[2021-06-13] MEDS ORDERED: Dextrose Gel 15 GM/37.5 ML TUBE PO PRN ×2 (23:21)
[2021-06-13] MEDS ORDERED: *HR* Dextrose 50 % in Water (Syg) 50 ML SYRINGE IVP PRN (23:21)
[2021-06-13] MEDS ORDERED: D5% in Water 1,000 ML IVC PRN (23:21)
[2021-06-14 00:15] LABS: Influenza A PCR Negative (Negative); Influenza B PCR Negative (Negative); Resp. Syncytial Virus PCR Negative (Negative)
[2021-06-14 00:27] LABS: SARS-CoV-2 by PCR (In House) Positive (Negative)
[2021-06-14 04:45] LABS: Basophils # 0.1 K/mcL (0.0-0.2); Basophils % 0.4 %; Eosinophils # 0.4 K/mcL (0.0-0.6); Eosinophils % 2.7 %; Hematocrit 27.5 % (35.3-44.9); Immature Granulocytes % 0.5 % (0-4); Lymphocytes # 2.1 K/mcL (0.6-4.6); Lymphocytes % 13.1 %; Mean Corpuscular HGB Conc 29.1 g/dL (31.6-35.5); Mean Corpuscular Hemoglobin 29.1 pg (28.0-33.3); Mean Platelet Volume 9.5 fL (9.4-12.4); Monocytes % 6.3 %; Neutrophils # 12.6 K/mcL (1.6-8.9); Platelet Count 405 K/mcL (140-400); Red Blood Count 2.75 M/mcL (3.82-4.97); Red Cell Distribution Width 15.3 % (11.5-14.5); White Blood Count 16.4 K/mcL (4.3-11.1)
[2021-06-14 05:06] LABS: Albumin 3.7 g/dL (3.5-5.7); Albumin/Globulin Ratio 1.3 (1.1-2.2); Bilirubin,Total 0.2 mg/dL (0.3-1.0); Calcium 9.3 mg/dL (8.6-10.3); Globulin 2.9 g/dL (2.4-3.5); Magnesium 1.5 mg/dL (1.6-2.6); Phosphorous 4.3 mg/dL (2.7-4.5); Potassium 5.9 mEq/L (3.5-5.1); Total Protein 6.6 g/dL (6.4-8.9)
[2021-06-14] MEDS ORDERED: Insulin Human Regular 10 UNIT in 0.9 % Sodium Chloride 10 ML IV ONE (07:43)
[2021-06-14] MEDS ORDERED: *HR* Dextrose 50 % in Water (Syg) 50 ML SYRINGE IVP ONE (07:43)
[2021-06-14] MEDS ORDERED: 0.9 % Sodium Chloride 1,000 ML IVC ONE (08:37)
[2021-06-14] MEDS: Insulin LISPRO 300 UNITS/3 ML VIAL SUBQ SCH ×4 (10:30→20:24)
[2021-06-14] MEDS: Calcium Gluconate 1gm/50mL 1 GM/50 ML BAG IVPB SCH ×2 (11:01→14:34)
[2021-06-14] MEDS: Morphine Sulfate 2 MG/ML SYRINGE IVP PRN ×2 (11:02→19:31)
[2021-06-14 11:16] LABS: Creatine Kinase 282 Units/L (30-223)
[2021-06-14] MEDS: Ipratropium 1 PUFF INHALER IH SCH ×3 (12:47→21:53)
[2021-06-14] MEDS ORDERED: Vancomycin 1,500 MG/265 ML IV.SOLN IVPB ONE (15:00)
[2021-06-14 15:44] LABS: C-Reactive Protein 99 mg/L (Less than 10)
[2021-06-14] MEDS: Piperacillin/Tazobactam 3.375 GM in 0.9 % Sodium Chloride Mini Bag 100 ML IVPB SCH ×2 (15:51→22:37)
[2021-06-14] MEDS ORDERED: Piperacillin/Tazobactam 3.375 GM in 0.9 % Sodium Chloride Mini Bag 100 ML IVPB SCH (16:00)
[2021-06-14] MEDS ORDERED: 0.9 % Sodium Chloride 1,000 ML IVC SCH (18:15)
[2021-06-14 21:07] LABS: Calcium 9.8 mg/dL (8.6-10.3); Potassium 5.4 mEq/L (3.5-5.1)
[2021-06-15] MEDS: Ipratropium 1 PUFF INHALER IH SCH ×3 (04:14→16:12)
[2021-06-15 04:23] LABS: Bilirubin,Urine Negative (Negative); Blood,Urine Negative (Negative); Clarity,Urine Clear (Clear); Color,Urine Light-Yellow (Yellow); Glucose,Urine (UA) Normal (Normal); Ketones,Urine Negative (Negative); Leukocyte Esterase,Urine Small (Negative); Nitrite,Urine Negative (Negative); PH,Urine 5.5 pH Units (5.0-8.0); Protein,Urine Negative (Neg-Trace); RBC,Urine 0-3 per hpf (0-3); Specific Gravity,Urine 1.012 (1.010-1.025); Transitional Epi Cells,Urine Few per hpf (None-Few); Urobilinogen,Urine Normal (Normal)
[2021-06-15 05:29] LABS: Basophils % 0.3 %; Eosinophils # 0.2 K/mcL (0.0-0.6); Eosinophils % 1.3 %; Hematocrit 27.6 % (35.3-44.9); Hemoglobin 8.4 g/dL (11.5-15.4); Immature Granulocytes % 0.6 % (0-4); Lymphocytes # 1.4 K/mcL (0.6-4.6); Mean Corpuscular HGB Conc 30.4 g/dL (31.6-35.5); Mean Corpuscular Hemoglobin 29.8 pg (28.0-33.3); Mean Corpuscular Volume 97.9 fL (83.0-100.0); Mean Platelet Volume 9.5 fL (9.4-12.4); Monocytes % 7.4 %; Neutrophils # 10.8 K/mcL (1.6-8.9); Platelet Count 417 K/mcL (140-400); Red Blood Count 2.82 M/mcL (3.82-4.97); Red Cell Distribution Width 15.5 % (11.5-14.5); Segmented Neutrophils % 80.4 %; White Blood Count 13.4 K/mcL (4.3-11.1)
[2021-06-15 05:46] LABS: Albumin 3.8 g/dL (3.5-5.7); Albumin/Globulin Ratio 1.3 (1.1-2.2); Bilirubin,Direct 0.2 mg/dL (0.0-0.2); Bilirubin,Indirect 0.3 mg/dL (0.0-1.0); Bilirubin,Total 0.5 mg/dL (0.3-1.0); Calcium 10.1 mg/dL (8.6-10.3); Potassium 5.4 mEq/L (3.5-5.1); Total Protein 6.8 g/dL (6.4-8.9)
[2021-06-15] MEDS ORDERED: Povidone-Iodine 45 ML, Sodium Chloride IRRigation 1,000 ML IR ONE (06:00)
[2021-06-15] MEDS ORDERED: TOTAL JOINT MIXTURE (100ML) INTRAART ONE (06:00)
[2021-06-15 06:02] LABS: Folate 14.7 ng/mL (3.0-16.0)
[2021-06-15] MEDS: Piperacillin/Tazobactam 3.375 GM in 0.9 % Sodium Chloride Mini Bag 100 ML IVPB SCH ×3 (06:48→22:30)
[2021-06-15] MEDS: Morphine Sulfate 2 MG/ML SYRINGE IVP PRN (06:51)
[2021-06-15] MEDS ORDERED: Cyanocobalamin (B-12) 1,000 MCG/ML VIAL SQ ONE (07:32)
[2021-06-15] MEDS ORDERED: Insulin Human Regular 10 UNIT in 0.9 % Sodium Chloride 10 ML IV ONE ×2 (07:33→19:59)
[2021-06-15] MEDS ORDERED: *HR* Dextrose 50 % in Water (Syg) 50 ML SYRINGE IVP ONE ×2 (07:33→19:59)
[2021-06-15] MEDS ORDERED: Sodium Bicarbonate 150 MEQ in D5% in Water 1,000 ML IVC SCH (07:45)
[2021-06-15] MEDS ORDERED: Ondansetron 4 MG/2 ML VIAL ONE ×2 (08:07→12:05)
[2021-06-15] MEDS ORDERED: *HR* FentaNYL (PF) 100 MCG/2 ML VIAL ONE ×4 (08:07→18:00)
[2021-06-15] MEDS ORDERED: Lidocaine -MPF 2% 5 ML VIAL ONE ×2 (08:07→12:05)
[2021-06-15] MEDS ORDERED: *HR* Propofol 200 MG/20 ML VIAL IVP ONE ×2 (08:07→12:02)
[2021-06-15] MEDS: Insulin LISPRO 300 UNITS/3 ML VIAL SUBQ SCH ×4 (08:08→21:09)
[2021-06-15] MEDS: Loratadine 10 MG TABLET PO SCH (09:33)
[2021-06-15] MEDS ORDERED: Famotidine 20 MG/2 ML VIAL IVP ONE (10:00)
[2021-06-15] MEDS ORDERED: Albuterol 2.5 MG/3 ML NEBULIZER IH PRN (10:22)
[2021-06-15 10:27] LABS: Estimated Average Glucose 134 mg/dl; Hemoglobin A1C 6.3 %
[2021-06-15] MEDS ORDERED: *HR* Midazolam HCl 2 MG/2 ML VIAL ONE (12:02)
[2021-06-15] MEDS ORDERED: *HR* Rocuronium Bromide 50 MG/5 ML VIAL ONE ×2 (12:05→17:51)
[2021-06-15] MEDS ORDERED: Sugammadex Sodium 200 MG/2 ML VIAL IV ONE (12:36)
[2021-06-15] MEDS ORDERED: Ethanol\\Acetic Acid\\Na Ace\\Ben 1,000 ML IRRIG.SOLN IR ONE (13:29)
[2021-06-15] MEDS ORDERED: Tobramycin Sulf (Sterile) 1.2 GM VIAL ONE (13:29)
[2021-06-15] MEDS ORDERED: Vancomycin 1,000 MG VIAL ONE (13:30)
[2021-06-15] MEDS ORDERED: *HR* Succinylcholine 200 MG/10 ML VIAL IVP ONE (13:35)
[2021-06-15] MEDS ORDERED: Heparin 1,000 UNITS/500 mL 500 ML ONE (13:47)
[2021-06-15] MEDS ORDERED: Ropivacaine/PF 0.5% 30 ML VIAL ONE (14:00)
[2021-06-15] MEDS ORDERED: Albumin Human 5% 12.5 GM/250 ML IV.SOLN ONE ×2 (16:24→16:26)
[2021-06-15 17:05] LABS: VBG Base Excess -7 mEq/L; VBG Chloride 107 mEq/L (98-107); VBG Glucose 214 mg/dl (65-95); VBG HCO3 19 mEq/L (21-27); VBG Ionized Calcium 1.31 mmol/L (1.15-1.35); VBG Oxygen Saturation 97 %; VBG PCO2 39 mmHg (41-51); VBG PH 7.29 pH Units (7.32-7.42); VBG PO2 100 mmHg (25-50); VBG Total CO2 20 mEq/L
[2021-06-15] MEDS ORDERED: Insulin Human Regular 20 UNIT in 0.9 % Sodium Chloride 10 ML IV ONE (17:13)
[2021-06-15] MEDS ORDERED: *HR* Phenylephrine 10 MG/ML VIAL ONE (17:17)
[2021-06-15] MEDS ORDERED: *HR* Dextrose 50 % in Water (Vial) 50 ML VIAL ONE (17:22)
[2021-06-15] MEDS ORDERED: Insulin Regular, Human 100 UNIT/ML ONE (17:24)
[2021-06-15] MEDS ORDERED: Albumin Human 5% 0 GM/0 ML IV.SOLN ONE (17:31)
[2021-06-15 18:12] LABS: ABG Base Excess -4 mEq/L (-2 to 3); ABG Chloride 106 mEq/L (98-107); ABG Glucose 201 mg/dL (60-95); ABG HCO3 21 mEq/L (21-27); ABG Oxygen Saturation 97 % (95-98); ABG PCO2 35 mmHg (35-45); ABG PH 7.38 pH Units (7.32-7.45); ABG PO2 95 mmHg (85-104); ABG TCO2 22 mEq/L (20-26)
[2021-06-15] MEDS ORDERED: *HR* HYDROMORPHONE 2 MG/ML VIAL ONE (18:41)
[2021-06-15] MEDS ORDERED: Naloxone 0.4 MG/ML INJ IVP PRN (18:42)
[2021-06-15] MEDS ORDERED: *HR* Promethazine 25 MG/ML VIAL IM PRN (18:42)
[2021-06-15] MEDS ORDERED: Sennosides 8.6 MG TABLET PO PRN (18:42)
[2021-06-15] MEDS ORDERED: Ondansetron 4 MG/2 ML VIAL IVP PRN (18:42)
[2021-06-15] MEDS ORDERED: MOM Conc 10 ML UD.LIQ PO PRN (18:42)
[2021-06-15] MEDS ORDERED: Calcium Gluconate 1gm/50mL 1 GM/50 ML BAG IVPB SCH (20:00)
[2021-06-15 22:17] LABS: Calcium 9.1 mg/dL (8.6-10.3); Potassium 5.1 mEq/L (3.5-5.1)
[2021-06-16] MEDS ORDERED: Vancomycin 1,500 MG/265 ML IV.SOLN IVPB SCH
[2021-06-16] MEDS: SODIUM ZIRCONIUM CYCLOSILICATE 5 GM POWD.PACK PO SCH ×2 (00:37→09:18)
[2021-06-16] MEDS: CeFAZolin 2 GM/120 ML BAG IVPB SCH ×2 (00:37→09:47)
[2021-06-16] MEDS: Ringers Solution, Lactated 1,000 ML IVC SCH ×2 (00:37→11:14)
[2021-06-16] MEDS: Ipratropium 1 PUFF INHALER IH SCH ×5 (02:45→19:45)
[2021-06-16] MEDS ORDERED: Acetaminophen IV 500 MG/50 ML BAG IVPB ONE (05:30)
[2021-06-16 05:37] LABS: Calcium 9.1 mg/dL (8.6-10.3); Magnesium 1.5 mg/dL (1.6-2.6); Potassium 5.2 mEq/L (3.5-5.1)
[2021-06-16] MEDS: Piperacillin/Tazobactam 3.375 GM in 0.9 % Sodium Chloride Mini Bag 100 ML IVPB SCH ×3 (06:44→22:12)
[2021-06-16] MEDS ORDERED: Aspirin 81 MG TAB.CHEW PO SCH (09:00)
[2021-06-16] MEDS: Multivit/Ca/Min/Fe/FA 1 TAB TABLET PO SCH (09:17)
[2021-06-16] MEDS: allopurinoL 100 MG TABLET PO SCH (09:17)
[2021-06-16] MEDS: Ascorbic Acid 500 MG TABLET PO SCH ×2 (09:17→15:54)
[2021-06-16] MEDS: Loratadine 10 MG TABLET PO SCH (09:17)
[2021-06-16] MEDS: Insulin LISPRO 300 UNITS/3 ML VIAL SUBQ SCH ×4 (09:19→20:55)
[2021-06-16 10:23] LABS: Basophils % 0.1 %; Red Cell Distribution Width 15.4 % (11.5-14.5)
[2021-06-16 10:25] LABS: Hematocrit 16.9 % (35.3-44.9); Immature Granulocytes % 0.9 % (0-4); Lymphocytes % 6.5 %; Mean Corpuscular HGB Conc 31.4 g/dL (31.6-35.5); Mean Corpuscular Hemoglobin 29.8 pg (28.0-33.3); Mean Corpuscular Volume 94.9 fL (83.0-100.0); Mean Platelet Volume 9.6 fL (9.4-12.4); Monocytes % 6.5 %; Neutrophils # 12.7 K/mcL (1.6-8.9); Platelet Count 319 K/mcL (140-400); Red Blood Count 1.78 M/mcL (3.82-4.97); White Blood Count 14.8 K/mcL (4.3-11.1)
[2021-06-16 10:37] LABS: Hemoglobin 5.3 g/dL (11.5-15.4)
[2021-06-16] MEDS ORDERED: Magnesium Sulfate 1 GM/102 ML PIGGYBACK IVPB ONE (12:23)
[2021-06-16] MEDS ORDERED: Potassium Chloride Elixir 20 MEQ/15 ML UDC PO ONE ×2 (12:23→12:45)
[2021-06-16 13:11] LABS: Hematocrit 16.2 % (35.3-44.9)
[2021-06-16] MEDS: *HR* OxyCODONE Immed Rel 5 MG TABLET PO PRN ×2 (13:11→21:44)
[2021-06-16] MEDS ORDERED: 0.9 % Sodium Chloride 250 ML ONE ×2 (14:46→21:11)
[2021-06-16 16:10] LABS: Bilirubin,Urine Negative (Negative); Blood,Urine Small (Negative); Clarity,Urine Clear (Clear); Color,Urine Light-Yellow (Yellow); Glucose,Urine (UA) Normal (Normal); Ketones,Urine Negative (Negative); Leukocyte Esterase,Urine Moderate (Negative); Mucus,Urine Few per lpf (None-Few); Nitrite,Urine Negative (Negative); PH,Urine 5.5 pH Units (5.0-8.0); Protein,Urine Trace mg/dL (Neg-Trace); RBC,Urine 15-30 per hpf (0-3); Renal Epithelial Cells,Urine Few per hpf (None-Few); Squamous Epithelial Cell,Urine Few per hpf (None-Few); Transitional Epi Cells,Urine Few per hpf (None-Few); Urobilinogen,Urine Normal (Normal); WBC,Urine 15-30 per hpf (0-3)
[2021-06-16] MEDS ORDERED: Acetaminophen 325 MG TABLET PO ONE (20:33)
[2021-06-16] MEDS: Aspirin Enteric Coated 81 MG Tablet PO SCH ×2 (20:36→20:50)
[2021-06-16] MEDS: traZODone 50 MG TABLET PO SCH (20:50)
[2021-06-17 01:33] LABS: Hematocrit 19.2 % (35.3-44.9)
[2021-06-17] MEDS: Ipratropium 1 PUFF INHALER IH SCH ×4 (03:37→19:33)
[2021-06-17] MEDS ORDERED: 0.9 % Sodium Chloride 250 ML ONE (06:00)
[2021-06-17] MEDS: Piperacillin/Tazobactam 3.375 GM in 0.9 % Sodium Chloride Mini Bag 100 ML IVPB SCH (06:07)
[2021-06-17 06:32] LABS: Basophils % 0.1 %; Eosinophils % 0.1 %; Hematocrit 20.1 % (35.3-44.9); Hemoglobin 6.1 g/dL (11.5-15.4); Immature Granulocytes % 1.1 % (0-4); Lymphocytes # 0.8 K/mcL (0.6-4.6); Lymphocytes % 6.6 %; Mean Corpuscular HGB Conc 30.3 g/dL (31.6-35.5); Mean Corpuscular Hemoglobin 28.5 pg (28.0-33.3); Mean Corpuscular Volume 93.9 fL (83.0-100.0); Mean Platelet Volume 9.4 fL (9.4-12.4); Monocytes # 0.8 K/mcL (0.0-1.3); Monocytes % 6.8 %; Neutrophils # 9.8 K/mcL (1.6-8.9); Platelet Count 347 K/mcL (140-400); Red Blood Count 2.14 M/mcL (3.82-4.97); Red Cell Distribution Width 15.8 % (11.5-14.5); Segmented Neutrophils % 85.3 %; White Blood Count 11.5 K/mcL (4.3-11.1)
[2021-06-17] MEDS: *HR* OxyCODONE Immed Rel 5 MG TABLET PO PRN (06:39)
[2021-06-17 06:51] LABS: Calcium 8.9 mg/dL (8.6-10.3)
[2021-06-17] MEDS: Aspirin Enteric Coated 81 MG Tablet PO SCH ×2 (08:11→20:58)
[2021-06-17] MEDS: Ascorbic Acid 500 MG TABLET PO SCH ×2 (08:12→15:58)
[2021-06-17] MEDS: Loratadine 10 MG TABLET PO SCH (08:12)
[2021-06-17] MEDS: allopurinoL 100 MG TABLET PO SCH (08:12)
[2021-06-17] MEDS: Multivit/Ca/Min/Fe/FA 1 TAB TABLET PO SCH (08:12)
[2021-06-17] MEDS: Insulin LISPRO 300 UNITS/3 ML VIAL SUBQ SCH ×4 (08:18→20:54)
[2021-06-17] MEDS: cephALEXin 500 MG CAPSULE PO SCH ×4 (08:19→20:58)
[2021-06-17 14:50] LABS: Hematocrit 24.2 % (35.3-44.9); Hemoglobin 7.6 g/dL (11.5-15.4)
[2021-06-17] MEDS: traZODone 50 MG TABLET PO SCH (20:58)
[2021-06-18] MEDS: Ipratropium 1 PUFF INHALER IH SCH ×4 (04:11→21:58)
[2021-06-18 06:09] LABS: Basophils # 0.1 K/mcL (0.0-0.2); Basophils % 0.6 %; Eosinophils # 0.5 K/mcL (0.0-0.6); Eosinophils % 4.7 %; Hematocrit 25.6 % (35.3-44.9); Hemoglobin 8.2 g/dL (11.5-15.4); Immature Granulocytes % 2.9 % (0-4); Lymphocytes # 1.5 K/mcL (0.6-4.6); Mean Corpuscular Hemoglobin 29.4 pg (28.0-33.3); Mean Corpuscular Volume 91.8 fL (83.0-100.0); Mean Platelet Volume 9.2 fL (9.4-12.4); Monocytes # 0.9 K/mcL (0.0-1.3); Neutrophils # 6.8 K/mcL (1.6-8.9); Nucleated Red Blood Cells 0.3 /100 WBC (0); Platelet Count 372 K/mcL (140-400); Red Blood Count 2.79 M/mcL (3.82-4.97); Segmented Neutrophils % 67.8 %
[2021-06-18 06:27] LABS: BUN/Creatinine Ratio 34 (6-26); Blood Urea Nitrogen 33 mg/dL (8-23); Calcium 9.2 mg/dL (8.6-10.3); Carbon Dioxide 25 mEq/L (23-29); Chloride 109 mEq/L (98-107); Glucose 79 mg/dL (70-105); Osmolality,Calculated 290 (280-300); Potassium 4.7 mEq/L (3.5-5.1); Sodium 137 mEq/L (136-145); eGFR For African Americans > 60 (> 60); eGFR For Non-African Americans 58 (> 60)
[2021-06-18] MEDS: cephALEXin 500 MG CAPSULE PO SCH ×4 (10:07→19:57)
[2021-06-18] MEDS: allopurinoL 100 MG TABLET PO SCH (10:07)
[2021-06-18] MEDS: Loratadine 10 MG TABLET PO SCH (10:07)
[2021-06-18] MEDS: Aspirin Enteric Coated 81 MG Tablet PO SCH ×2 (10:07→19:55)
[2021-06-18] MEDS: Multivit/Ca/Min/Fe/FA 1 TAB TABLET PO SCH (10:07)
[2021-06-18] MEDS: Ascorbic Acid 500 MG TABLET PO SCH ×2 (10:11→15:19)
[2021-06-18] MEDS: Insulin LISPRO 300 UNITS/3 ML VIAL SUBQ SCH ×4 (10:12→19:57)
[2021-06-18] MEDS: traZODone 50 MG TABLET PO SCH (19:55)
[2021-06-18] MEDS: Melatonin 3 MG TABLET PO PRN (19:55)
[2021-06-19] MEDS: Ipratropium 1 PUFF INHALER IH SCH ×4 (05:01→23:19)
[2021-06-19] MEDS: *HR* Enoxaparin 40 MG/0.4 ML SYRINGE SQ SCH (05:08)
[2021-06-19 06:11] LABS: Basophils % 0.3 %; Eosinophils # 0.2 K/mcL (0.0-0.6); Eosinophils % 1.8 %; Hematocrit 25.4 % (35.3-44.9); Hemoglobin 8.3 g/dL (11.5-15.4); Immature Granulocytes % 3.6 % (0-4); Lymphocytes % 15.5 %; Mean Corpuscular HGB Conc 32.7 g/dL (31.6-35.5); Mean Corpuscular Hemoglobin 29.7 pg (28.0-33.3); Mean Platelet Volume 9.2 fL (9.4-12.4); Monocytes # 1.1 K/mcL (0.0-1.3); Monocytes % 8.7 %; Neutrophils # 8.9 K/mcL (1.6-8.9); Nucleated Red Blood Cells 0.4 /100 WBC (0); Platelet Count 372 K/mcL (140-400); Red Blood Count 2.79 M/mcL (3.82-4.97); Red Cell Distribution Width 15.5 % (11.5-14.5); Segmented Neutrophils % 70.1 %; White Blood Count 12.7 K/mcL (4.3-11.1)
[2021-06-19 06:34] LABS: BUN/Creatinine Ratio 30 (6-26); Blood Urea Nitrogen 27 mg/dL (8-23); Calcium 9.2 mg/dL (8.6-10.3); Carbon Dioxide 24 mEq/L (23-29); Chloride 105 mEq/L (98-107); Glucose 84 mg/dL (70-105); Osmolality,Calculated 288 (280-300); Potassium 4.4 mEq/L (3.5-5.1); Sodium 137 mEq/L (136-145); eGFR For African Americans > 60 (> 60); eGFR For Non-African Americans > 60 (> 60)
[2021-06-19] MEDS: Insulin LISPRO 300 UNITS/3 ML VIAL SUBQ SCH ×4 (08:27→20:14)
[2021-06-19] MEDS: allopurinoL 100 MG TABLET PO SCH (09:27)
[2021-06-19] MEDS: Ascorbic Acid 500 MG TABLET PO SCH ×2 (09:27→17:15)
[2021-06-19] MEDS: Aspirin Enteric Coated 81 MG Tablet PO SCH ×2 (09:27→20:14)
[2021-06-19] MEDS: cephALEXin 500 MG CAPSULE PO SCH ×4 (09:27→20:14)
[2021-06-19] MEDS: Multivit/Ca/Min/Fe/FA 1 TAB TABLET PO SCH (09:27)
[2021-06-19] MEDS: Loratadine 10 MG TABLET PO SCH (09:28)
[2021-06-19] MEDS: traZODone 50 MG TABLET PO SCH (20:14)
[2021-06-19] MEDS: *HR* HYDROmorphone 2 MG/ML SYRINGE IVP PRN (20:27)
[2021-06-20] MEDS: Ipratropium 1 PUFF INHALER IH SCH ×4 (05:28→20:56)
[2021-06-20] MEDS: *HR* Enoxaparin 40 MG/0.4 ML SYRINGE SQ SCH (05:29)
[2021-06-20 06:08] LABS: Basophils # 0.1 K/mcL (0.0-0.2); Basophils % 0.5 %; Eosinophils # 0.3 K/mcL (0.0-0.6); Hematocrit 26.3 % (35.3-44.9); Hemoglobin 8.2 g/dL (11.5-15.4); Immature Granulocytes % 4.7 % (0-4); Lymphocytes # 1.9 K/mcL (0.6-4.6); Lymphocytes % 12.2 %; Mean Corpuscular HGB Conc 31.2 g/dL (31.6-35.5); Mean Corpuscular Volume 92.9 fL (83.0-100.0); Mean Platelet Volume 9.3 fL (9.4-12.4); Monocytes # 1.2 K/mcL (0.0-1.3); Monocytes % 7.7 %; Neutrophils # 11.3 K/mcL (1.6-8.9); Nucleated Red Blood Cells 0.3 /100 WBC (0); Platelet Count 386 K/mcL (140-400); Red Blood Count 2.83 M/mcL (3.82-4.97); Red Cell Distribution Width 15.7 % (11.5-14.5); Segmented Neutrophils % 72.9 %; White Blood Count 15.5 K/mcL (4.3-11.1)
[2021-06-20 06:42] LABS: BUN/Creatinine Ratio 29 (6-26); Blood Urea Nitrogen 27 mg/dL (8-23); Carbon Dioxide 24 mEq/L (23-29); Chloride 107 mEq/L (98-107); Glucose 87 mg/dL (70-105); Osmolality,Calculated 292 (280-300); Sodium 139 mEq/L (136-145); eGFR For African Americans > 60 (> 60); eGFR For Non-African Americans > 60 (> 60)
[2021-06-20] MEDS: Insulin LISPRO 300 UNITS/3 ML VIAL SUBQ SCH ×4 (09:03→21:47)
[2021-06-20] MEDS: Aspirin Enteric Coated 81 MG Tablet PO SCH ×2 (09:22→20:00)
[2021-06-20] MEDS: Ascorbic Acid 500 MG TABLET PO SCH ×2 (09:22→17:23)
[2021-06-20] MEDS: cephALEXin 500 MG CAPSULE PO SCH ×4 (09:22→20:00)
[2021-06-20] MEDS: allopurinoL 100 MG TABLET PO SCH (09:22)
[2021-06-20] MEDS: Loratadine 10 MG TABLET PO SCH (09:22)
[2021-06-20] MEDS: Multivit/Ca/Min/Fe/FA 1 TAB TABLET PO SCH (09:22)
[2021-06-20] MEDS: *HR* OxyCODONE Immed Rel 5 MG TABLET PO PRN ×2 (10:02→14:21)
[2021-06-20 14:42] LABS: Bilirubin,Urine Negative (Negative); Blood,Urine Negative (Negative); Clarity,Urine Clear (Clear); Color,Urine Light-Yellow (Yellow); Glucose,Urine (UA) Normal (Normal); Ketones,Urine Negative (Negative); Leukocyte Esterase,Urine Negative (Negative); Nitrite,Urine Negative (Negative); PH,Urine 6.5 pH Units (5.0-8.0); Protein,Urine Negative (Neg-Trace); Specific Gravity,Urine 1.019 (1.010-1.025); Urobilinogen,Urine Normal (Normal)
[2021-06-20] MEDS: traZODone 50 MG TABLET PO SCH (19:59)
[2021-06-20] MEDS: *HR* HYDROmorphone 2 MG/ML SYRINGE IVP PRN (21:53)
[2021-06-21] MEDS: *HR* HYDROmorphone (PF) 1 MG/ML SYRINGE IVP PRN ×2 (02:37→08:28)
[2021-06-21] MEDS: Ipratropium 1 PUFF INHALER IH SCH ×4 (03:39→22:24)
[2021-06-21] MEDS: *HR* Enoxaparin 40 MG/0.4 ML SYRINGE SQ SCH (06:11)
[2021-06-21 06:44] LABS: Eosinophils # 0.4 K/mcL (0.0-0.6); Hematocrit 26.8 % (35.3-44.9); Hemoglobin 8.6 g/dL (11.5-15.4); Lymphocytes # 2.9 K/mcL (0.6-4.6); Mean Corpuscular HGB Conc 32.1 g/dL (31.6-35.5); Mean Corpuscular Hemoglobin 30.3 pg (28.0-33.3); Mean Corpuscular Volume 94.4 fL (83.0-100.0); Mean Platelet Volume 9.1 fL (9.4-12.4); Nucleated Red Blood Cells 0.1 /100 WBC (0); Platelet Count 369 K/mcL (140-400); Red Blood Count 2.84 M/mcL (3.82-4.97); Red Cell Distribution Width 16.5 % (11.5-14.5); White Blood Count 20.6 K/mcL (4.3-11.1)
[2021-06-21 07:18] LABS: Anisocytosis 1+ (Not Present); Monocytes # 0.4 K/mcL (0.0-1.3); Neutrophils # 16.9 K/mcL (1.6-8.9); Platelet Estimate Normal (Normal)
[2021-06-21] MEDS: Aspirin Enteric Coated 81 MG Tablet PO SCH ×2 (08:03→20:37)
[2021-06-21] MEDS: Insulin LISPRO 300 UNITS/3 ML VIAL SUBQ SCH ×4 (08:03→20:37)
[2021-06-21] MEDS: Loratadine 10 MG TABLET PO SCH (08:05)
[2021-06-21] MEDS: allopurinoL 100 MG TABLET PO SCH (08:05)
[2021-06-21] MEDS: Multivit/Ca/Min/Fe/FA 1 TAB TABLET PO SCH (08:05)
[2021-06-21] MEDS: Ascorbic Acid 500 MG TABLET PO SCH ×2 (08:05→18:21)
[2021-06-21] MEDS: cephALEXin 500 MG CAPSULE PO SCH ×4 (08:06→20:37)
[2021-06-21] MEDS: traZODone 50 MG TABLET PO SCH (20:37)
[2021-06-22 03:55] LABS: Basophils # 0.1 K/mcL (0.0-0.2); Basophils % 0.7 %; Eosinophils # 1.1 K/mcL (0.0-0.6); Eosinophils % 6.1 %; Hematocrit 26.3 % (35.3-44.9); Hemoglobin 8.2 g/dL (11.5-15.4); Immature Granulocytes % 8.9 % (0-4); Lymphocytes # 3.2 K/mcL (0.6-4.6); Lymphocytes % 18.5 %; Mean Corpuscular HGB Conc 31.2 g/dL (31.6-35.5); Mean Corpuscular Hemoglobin 29.6 pg (28.0-33.3); Mean Corpuscular Volume 94.9 fL (83.0-100.0); Mean Platelet Volume 8.8 fL (9.4-12.4); Monocytes # 1.1 K/mcL (0.0-1.3); Monocytes % 6.2 %; Nucleated Red Blood Cells 0.2 /100 WBC (0); Platelet Count 342 K/mcL (140-400); Red Blood Count 2.77 M/mcL (3.82-4.97); Red Cell Distribution Width 17.2 % (11.5-14.5); Segmented Neutrophils % 59.6 %; White Blood Count 17.2 K/mcL (4.3-11.1)
[2021-06-22 04:04] LABS: Neutrophils # 10.3 K/mcL (1.6-8.9)
[2021-06-22] MEDS: Ipratropium 1 PUFF INHALER IH SCH ×4 (04:11→22:14)
[2021-06-22 04:38] LABS: Platelet Estimate Normal (Normal)
[2021-06-22 04:53] LABS: BUN/Creatinine Ratio 27 (6-26); Blood Urea Nitrogen 23 mg/dL (8-23); Calcium 8.4 mg/dL (8.6-10.3); Carbon Dioxide 25 mEq/L (23-29); Chloride 108 mEq/L (98-107); Glucose 109 mg/dL (70-105); Osmolality,Calculated 290 (280-300); Potassium 3.9 mEq/L (3.5-5.1); Sodium 138 mEq/L (136-145); eGFR For African Americans > 60 (> 60); eGFR For Non-African Americans > 60 (> 60)
[2021-06-22] MEDS: *HR* Enoxaparin 40 MG/0.4 ML SYRINGE SQ SCH (06:05)
[2021-06-22] MEDS: cephALEXin 500 MG CAPSULE PO SCH ×4 (09:58→20:43)
[2021-06-22] MEDS: Multivit/Ca/Min/Fe/FA 1 TAB TABLET PO SCH (09:58)
[2021-06-22] MEDS: Aspirin Enteric Coated 81 MG Tablet PO SCH ×2 (09:59→20:43)
[2021-06-22] MEDS: Loratadine 10 MG TABLET PO SCH (09:59)
[2021-06-22] MEDS: allopurinoL 100 MG TABLET PO SCH (09:59)
[2021-06-22] MEDS: Insulin LISPRO 300 UNITS/3 ML VIAL SUBQ SCH ×4 (10:00→20:44)
[2021-06-22] MEDS: Ascorbic Acid 500 MG TABLET PO SCH ×2 (10:03→16:58)
[2021-06-22] MEDS: *HR* OxyCODONE Immed Rel 5 MG TABLET PO PRN (16:57)
[2021-06-22] MEDS: Melatonin 3 MG TABLET PO PRN (20:43)
[2021-06-22] MEDS: traZODone 50 MG TABLET PO SCH (20:43)
[2021-06-23] MEDS: Ipratropium 1 PUFF INHALER IH SCH ×4 (04:43→20:09)
[2021-06-23 05:07] LABS: Hematocrit 28.9 % (35.3-44.9); Hemoglobin 8.9 g/dL (11.5-15.4); Mean Corpuscular HGB Conc 30.8 g/dL (31.6-35.5); Mean Corpuscular Hemoglobin 30.3 pg (28.0-33.3); Mean Corpuscular Volume 98.3 fL (83.0-100.0); Nucleated Red Blood Cells 0.3 /100 WBC (0); Platelet Count 306 K/mcL (140-400); Red Blood Count 2.94 M/mcL (3.82-4.97); Red Cell Distribution Width 17.8 % (11.5-14.5); White Blood Count 16.2 K/mcL (4.3-11.1)
[2021-06-23] MEDS: *HR* Enoxaparin 40 MG/0.4 ML SYRINGE SQ SCH (05:28)
[2021-06-23 05:30] LABS: BUN/Creatinine Ratio 26 (6-26); Blood Urea Nitrogen 19 mg/dL (8-23); Calcium 8.6 mg/dL (8.6-10.3); Carbon Dioxide 21 mEq/L (23-29); Chloride 108 mEq/L (98-107); Glucose 98 mg/dL (70-105); Osmolality,Calculated 286 (280-300); Potassium 4.1 mEq/L (3.5-5.1); Sodium 137 mEq/L (136-145); eGFR For African Americans > 60 (> 60); eGFR For Non-African Americans > 60 (> 60)
[2021-06-23 05:36] LABS: Anisocytosis 1+ (Not Present); Eosinophils # 1.3 K/mcL (0.0-0.6); Lymphocytes # 1.9 K/mcL (0.6-4.6); Monocytes # 0.7 K/mcL (0.0-1.3); Neutrophils # 11.3 K/mcL (1.6-8.9); Platelet Estimate Normal (Normal); Reactive Lymphocytes Present (Not Present)
[2021-06-23] MEDS: Insulin LISPRO 300 UNITS/3 ML VIAL SUBQ SCH ×4 (08:40→20:56)
[2021-06-23] MEDS: Loratadine 10 MG TABLET PO SCH (08:41)
[2021-06-23] MEDS: cephALEXin 500 MG CAPSULE PO SCH ×4 (08:41→20:55)
[2021-06-23] MEDS: Multivit/Ca/Min/Fe/FA 1 TAB TABLET PO SCH (08:41)
[2021-06-23] MEDS: allopurinoL 100 MG TABLET PO SCH (08:41)
[2021-06-23] MEDS: Ascorbic Acid 500 MG TABLET PO SCH ×2 (08:41→17:04)
[2021-06-23] MEDS: Aspirin Enteric Coated 81 MG Tablet PO SCH ×2 (08:41→20:55)
[2021-06-23] MEDS: *HR* OxyCODONE Immed Rel 5 MG TABLET PO PRN (15:28)
[2021-06-23] MEDS: traZODone 50 MG TABLET PO SCH (20:55)
[2021-06-24] MEDS: Ipratropium 1 PUFF INHALER IH SCH ×4 (04:04→19:45)
[2021-06-24] MEDS: *HR* Enoxaparin 40 MG/0.4 ML SYRINGE SQ SCH (04:52)
[2021-06-24] MEDS: *HR* HYDROmorphone (PF) 1 MG/ML SYRINGE IVP PRN ×2 (04:52→20:15)
[2021-06-24] MEDS: allopurinoL 100 MG TABLET PO SCH (07:50)
[2021-06-24] MEDS: Ascorbic Acid 500 MG TABLET PO SCH ×2 (07:50→16:48)
[2021-06-24] MEDS: Multivit/Ca/Min/Fe/FA 1 TAB TABLET PO SCH (07:50)
[2021-06-24] MEDS: Aspirin Enteric Coated 81 MG Tablet PO SCH ×2 (07:50→20:14)
[2021-06-24] MEDS: Loratadine 10 MG TABLET PO SCH (07:50)
[2021-06-24] MEDS: cephALEXin 500 MG CAPSULE PO SCH ×4 (07:51→20:14)
[2021-06-24] MEDS: Insulin LISPRO 300 UNITS/3 ML VIAL SUBQ SCH ×4 (07:51→20:14)
[2021-06-24] MEDS: traZODone 50 MG TABLET PO SCH (20:14)
[2021-06-25] MEDS: Ipratropium 1 PUFF INHALER IH SCH ×3 (03:24→21:31)
[2021-06-25] MEDS: *HR* Enoxaparin 40 MG/0.4 ML SYRINGE SQ SCH (06:15)
[2021-06-25] MEDS: Loratadine 10 MG TABLET PO SCH (09:09)
[2021-06-25] MEDS: Multivit/Ca/Min/Fe/FA 1 TAB TABLET PO SCH (09:09)
[2021-06-25] MEDS: Aspirin Enteric Coated 81 MG Tablet PO SCH ×2 (09:09→19:59)
[2021-06-25] MEDS: allopurinoL 100 MG TABLET PO SCH (09:09)
[2021-06-25] MEDS: Ascorbic Acid 500 MG TABLET PO SCH ×2 (09:09→17:09)
[2021-06-25] MEDS: cephALEXin 500 MG CAPSULE PO SCH ×4 (09:09→19:59)
[2021-06-25] MEDS: Insulin LISPRO 300 UNITS/3 ML VIAL SUBQ SCH ×4 (09:10→19:59)
[2021-06-25] MEDS ORDERED: Ipratropium 1 PUFF INHALER IH PRN (16:45)
[2021-06-25] MEDS: traZODone 50 MG TABLET PO SCH (19:59)
[2021-06-25] MEDS: *HR* OxyCODONE Immed Rel 5 MG TABLET PO PRN (20:02)
[2021-06-26] MEDS: *HR* Enoxaparin 40 MG/0.4 ML SYRINGE SQ SCH (06:14)
[2021-06-26] MEDS: *HR* OxyCODONE Immed Rel 5 MG TABLET PO PRN (06:15)
[2021-06-26 07:51] VITALS: BP 135/74; PULSE 100; TEMP 98.5; O2SAT 95
[2021-06-26] MEDS: Insulin LISPRO 300 UNITS/3 ML VIAL SUBQ SCH (08:30)
[2021-06-26] MEDS: allopurinoL 100 MG TABLET PO SCH (08:51)
[2021-06-26] MEDS: Aspirin Enteric Coated 81 MG Tablet PO SCH (08:51)
[2021-06-26] MEDS: Loratadine 10 MG TABLET PO SCH (08:51)
[2021-06-26] MEDS: Multivit/Ca/Min/Fe/FA 1 TAB TABLET PO SCH (08:51)
[2021-06-26] MEDS: cephALEXin 500 MG CAPSULE PO SCH (08:51)
[2021-06-26] MEDS: Ascorbic Acid 500 MG TABLET PO SCH (08:51)
== END 2021-06-26 10:55 | DRG 710 ==
LOC: 4WAOSI → SUATTDRO 17:52
PROVIDERS: ADMIT Student in an Organized Health Care Education/Training Program; ATTEND Internal Medicine